=== PATIENT | female | born 1960 | race Caucasian/White ===

== ENCOUNTER 2019-03-19 05:43 | Outpatient (CLI) | payer BC ==
[~2019-03-19] VITALS: Ht 157.5 cm; Wt 54.4 kg
[2019-03-19] MEDS ORDERED: PREG50CA2 PO (16:00)
[2019-03-19] MEDS ORDERED: IBUP-2055 PO (16:00)
[2019-03-19] MEDS ORDERED: MULT-178 PO (16:00)
[2019-03-19] MEDS ORDERED: MELA10TA2 PO (16:00)
[2019-03-19] MEDS ORDERED: FLUO20CA42 PO (16:00)
[2019-03-19] MEDS ORDERED: IRON18TA PO (16:00)
[2019-03-19] MEDS ORDERED: METO-370 PO (16:00)
[2019-03-19] MEDS ORDERED: ASPI-586 PO (16:00)
[2019-03-19] MEDS ORDERED: CYAN500T2 PO (16:00)
== END 2019-03-19 16:17 | disposition home or self-care (01) ==
LOC: PREOP 05:43
PROVIDERS: ATTEND Surgery
DX: Z01.818 Encounter for other preprocedural examination (principal)

== ENCOUNTER 2019-03-27 11:21 | Day surgery (SDC) | payer BC ==
[~2019-03-27] VITALS: Ht 157.5 cm; Wt 54.4 kg
[~2019-03-27 11:21] MED LIST: ASPI-586 PO; CYAN500T2 PO; FLUO20CA42 PO; IBUP-2055 PO; IRON18TA PO; MELA10TA2 PO; METO-370 PO; MULT-178 PO; PREG50CA2 PO
--- OUTSIDE RECORDS SUMMARY | 2019-03-27 11:24 | XMS REPORT ---
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
--- OUTSIDE RECORDS SUMMARY | 2019-03-27 11:24 | XMS REPORT | Continuity of Care Document ---
Author Organization Unknown Address Unknown Allergies There is no data. Medications There is no data. Problems There is no data. Procedures There is no data. Results Test Result Range [facility] - 01/29/19 16:08 GLUCOSE 84 mg/dL 65-99 UREA NITROGEN (BUN) 23 mg/dL 7-25 CREATININE 1.18 mg/dL 0.50-1.05 eGFR NON-AFR. ROMANIAN 51 mL/min/1.73m2 > OR=60 eGFR 59 mL/min/1.73m2 > OR=60 BUN/CREATININE RATIO 19 (calc) 6-22 SODIUM 140 mmol/L 135-146 POTASSIUM 4.4 mmol/L 3.5-5.3 CHLORIDE 107 mmol/L 98-110 CARBON DIOXIDE 26 mmol/L 20-32 CALCIUM 9.9 mg/dL 8.6-10.4 PROTEIN, TOTAL 8.1 g/dL 6.1-8.1 ALBUMIN 4.5 g/dL 3.6-5.1 GLOBULIN 3.6 g/dL (calc) 1.9-3.7 ALBUMIN/GLOBULIN RATIO 1.3 (calc) 1.0-2.5 BILIRUBIN, TOTAL 0.4 mg/dL 0.2-1.2 ALKALINE PHOSPHATASE 150 U/L 33-130 AST 26 U/L 10-35 ALT 21 U/L 6-29 Encounters ACCT No. Visit Date/Time Discharge Status Pt. Type Provider Facility Loc./Unit Complaint [id number] 02/18/2019 09:15:00 02/18/2019 23:59:59 CLS Outpatient SELF, BRETT Garcia [facility] [id number] 01/29/2019 15:30:00 Document Registration
[2019-03-27] MEDS ORDERED: NS IV 500 ML 500 ML IV PRN (11:35)
--- NOTE | 2019-03-27 11:35 | Conscious Sedation/ASA ---
Conscious Sedation Pre-Proced Time 11:30 ASA Score 2 For ASA 3 and 4: Consider anesthesia and medical clearance. Also, for patients with a history of failed moderate sedation consider anesthesia. Airway Lungs Heart ASA score ASA 1: a normal healthy patient ASA 2: a patient with a mild systemic disease (mid diabetes, controlled hypertension, obesity ASA 3: a patient with a severe systemic disease that limits activity (angina, COPD, prior Myocardial infarction) ASA 4: a patient with an incapacitating disease that is a constant threat to life (CHF, renal failure) ASA 5: a moribund patient not expected to survive 24 hrs. (ruptured aneurysm) ASA 6: a declared brain- patient whose organs are being harvested. For emergent operations, add the letter E after the classification Mallampati Classification Grade 2 Sedation Plan Analgesia, Amnesia, Plan communicated to team members, Discussed options with patient/fam, Discussed risks with patient/fam The patient is an appropriate candidate to undergo the planned procedure, sedation, and anesthesia. The patient immediately re-assessed prior to indication. DAYANNA BALLESTEROS MD March 27, 2019 11:35
[2019-03-27] MEDS ORDERED: NS IV 500 ML 500 ML ONE (11:36)
[2019-03-27] MEDS ORDERED: fentaNYL INJECTION 100 MCG/2 ML AMP ONE ×2 (11:36→12:34)
[2019-03-27] MEDS ORDERED: MIDAZOLAM 2 MG/2 ML (VERSED) VIAL ONE ×6 (11:36→12:17)
--- NOTE | 2019-03-27 11:36 | Progress Note-Pre Operative ---
Pre-Operative Progress Note H&P Reviewed The H&P was reviewed, patient examined and no changes noted. Date Seen by Provider: March 27, 2019 Time Seen by Provider: 11: Date H&P Reviewed: March 27, 2019 Time H&P Reviewed: :30 Pre-Operative Diagnosis: hx colon polyp and family hx colon ca DAYANNA BALLESTEROS MD March 27, 2019 11:36
[2019-03-27] MEDS ORDERED: LIDOCAINE JELLY 2% 6 ML SYRINGE ONE (11:37)
--- NOTE | 2019-03-27 11:39 | Discharge Inst-Surgical ---
D/C Lap Instructions-LESLI Follow Up Activity as tolerated High Fiber Diet 25g or more per day Avoid Alcohol, Caffeine, Spicy [place] and Acid foods. Drink 64 fluid oz or more of fluids per day. Symptoms to Report: Fever over 101 degree F, Nausea/Vomiting If any problems/questions: Contact your physician or go to Emergency Room DAYANNA BALLESTEROS MD March 27, 2019 11:39
[2019-03-27] MEDS ORDERED: MIDAZOLAM 2 MG/2 ML (VERSED) VIAL IVP ONE (11:45)
[2019-03-27] MEDS ORDERED: morphine INJ 10 MG/ML 1ML (SYR OR VIAL) IV PRN (11:45)
[2019-03-27] MEDS ORDERED: LIDOCAINE JELLY 2% 6 ML SYRINGE MM PRN (11:45)
[2019-03-27] MEDS ORDERED: ONDANSETRON 4 MG/2 ML (SDV) Z0FRAN IV PRN (11:45)
[2019-03-27] MEDS ORDERED: HYDROcodone/APAP 5 MG/325 MG (LORTAB) TAB PO PRN (11:45)
[2019-03-27] MEDS ORDERED: ACETAMINOPHEN 325 MG TABLET PO PRN (11:45)
[2019-03-27] MEDS ORDERED: fentaNYL INJECTION 100 MCG/2 ML AMP IVP ONE (11:45)
[2019-03-27 12:00] VITALS: BP 167/94
[2019-03-27] MEDS ORDERED: TRAM100T34 PO (12:08)
--- NOTE | 2019-03-27 12:53 | Progress Note-Post Operative ---
Post-Operative Progess Note Surgeon (s)/Recruitment Internship (s) Surgeon DAYANNA BALLESTEROS MD Recruitment Internship: none Pre-Operative Diagnosis hx colon polyp and family hx colon ca Post-Operative Diagnosis chronic stage 2 ext and int hemorrhoids. Procedure & Operative Findings Date of Procedure 03/27/19 Procedure Performed/Findings Colonoscopy Anesthesia Type cs Estimated Blood Loss Estimated blood loss (mL): minimal Specimens/Packing Specimens Removed none DAYANNA BALLESTEROS MD March 27, 2019 12:53
[2019-03-27 13:10] VITALS: BP 116/56
[2019-03-27 13:35] VITALS: BP 109/67
[2019-03-27 14:00] VITALS: BP 109/67
--- NOTE | 2019-03-27 22:12 | OPERATIVE REPORT ---
DATE OF SERVICE: 03/27/2019 ATTENDING PRIMARY CARE PHYSICIAN: Jose Villeda MD PREOPERATIVE DIAGNOSIS: Family history of colon cancer, personal history of colon polyps. POSTOPERATIVE DIAGNOSIS: Chronic stage II external and internal hemorrhoids. It appears the ileocolonic anastomosis was normal. There were no polyps or any neoplasms identified throughout the colon or rectum. PROCEDURE: Colonoscopy. SURGEON: Dayanna Ballesteros MD ANESTHESIA: Conscious sedation. ESTIMATED BLOOD LOSS: Minimal. FINDINGS: Chronic stage II external and internal hemorrhoids, not actively edematous nor inflamed and no bleeding. Normal sphincter tone. What appeared to be the rectum and sigmoid colon were normal. There were no diverticulosis identified. The endoscope was then advanced to what appeared to be ileocolonic anastomosis, which appeared normal with no recurrent polyps or any neoplasms. The endoscope was then slowly withdrawn while taking a second look and suctioning residual air with no additional findings. DISPOSITION: The patient tolerated the procedure well. We will recommend continued medical management with high fiber diet with at least 25 to 30 grams of fiber per day as well as significant amounts of water daily to promote soft stools on a daily basis. No polyps were identified. However, she does have a first degree family history of colon cancer and we will recommend a followup colonoscopy in 5 years. 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
== END 2019-03-27 14:00 | disposition home or self-care (01) ==
LOC: ENDO 11:21
PROVIDERS: ATTEND Surgery
DX: Z12.11 Encounter for screening for malignant neoplasm of colon (principal); K64.1 Second degree hemorrhoids; Z87.19 Personal history of other diseases of the digestive system; Z80.0 Family history of malignant neoplasm of digestive organs; Z98.0 Intestinal bypass and anastomosis status; I10 Essential (primary) hypertension; F41.9 Anxiety disorder, unspecified; F32.9 Major depressive disorder, single episode, unspecified; M79.7 Fibromyalgia; Z86.711 Personal history of pulmonary embolism; Z86.718 Personal history of other venous thrombosis and embolism; Z87.891 Personal history of nicotine dependence; Z79.82 Long term (current) use of aspirin; Z79.899 Other long term (current) drug therapy

== ENCOUNTER 2019-04-29 16:23 | Inpatient (IN) | payer BC | END 2019-05-03 13:30 | disposition home or self-care (01) | LOC: ER FS 16:23 → 4TH 17:15 | DX: A41.9 Sepsis, unspecified organism (principal); R65.20 Severe sepsis without septic shock; N30.00 Acute cystitis without hematuria; N17.9 Acute kidney failure, unspecified; E87.1 Hypo-osmolality and hyponatremia; E86.1 Hypovolemia; R10.31 Right lower quadrant pain; K59.09 Other constipation; I10 Essential (primary) hypertension; G43.909 Migraine, unspecified, not intractable, without status migrainosus; F41.9 Anxiety disorder, unspecified; F32.9 Major depressive disorder, single episode, unspecified; M79.7 Fibromyalgia; D63.8 Anemia in other chronic diseases classified elsewhere; D69.6 Thrombocytopenia, unspecified; M25.512 Pain in left shoulder; M21.371 Foot drop, right foot; M54.9 Dorsalgia, unspecified; Z86.711 Personal history of pulmonary embolism; Z86.718 Personal history of other venous thrombosis and embolism; Z87.891 Personal history of nicotine dependence; Z90.49 Acquired absence of other specified parts of digestive tract; Z86.010 Personal history of colon polyps ==

== ENCOUNTER → 2019-11-26 | Outpatient (CLI) | payer BC ==
[~2019-11-26] MED LIST changes: +CIPR-225 PO; -CYAN500T2 PO; +CYAN500T62 PO; +FLUT9.9S NS; -IBUP-2055 PO; +IBUP-2473 PO; -METO-370 PO; +METO50TA7 PO; +NAPR220T66 PO; +TRAM100T34 PO; +TRM50T PO
== END ==
LOC: CARD 13:48
PROVIDERS: ATTEND Internal Medicine Cardiovascular Disease
DX: I73.9 Peripheral vascular disease, unspecified (principal); I10 Essential (primary) hypertension; E78.2 Mixed hyperlipidemia; I34.0 Nonrheumatic mitral (valve) insufficiency
CPT/HCPCS: 93306

== ENCOUNTER → 2020-01-19 | Outpatient (CLI) | payer BC | END | disposition home or self-care (01) | LOC: PREOP 05:40 | PROVIDERS: ATTEND Podiatrist Foot & Ankle Surgery | DX: Z01.818 Encounter for other preprocedural examination (principal) ==

== ENCOUNTER 2021-05-11 21:19 | Emergency (ER) | payer BC ==
[~2021-05-11] VITALS: Ht 157.5 cm; Wt 54.4 kg
[~2021-05-11 21:19] MED LIST changes: +ACHD5005 PO; +AMLO-250 PO; +ASPI-789 PO; +CLIN150C18 PO; -CYAN500T62 PO; +CYAN500T8 PO; +L.AC1CAP6 PO; +LOSA50TA63 PO
--- NOTE | 2021-05-11 21:21 | ED Abdominal Pain ---
General Stated Complaint: ABD PAIN History of Present Illness Date Seen by Provider: May 11, 2021 Time Seen by Provider: 21:21 Initial Comments 61-year-old female presents with diffuse abdominal pain. Patient reports that she has had some constipation for about 3 days. That tonight she had significant cramping abdominal pain that was diffuse. She was nauseated with dry heaves but did not vomit. She reports that she has not had a bowel movement for 3 days. She does not feel like she is passing much gas. She is not belchi ng. She has not vomited. She has no fever or chills. She reports that she has had problems with constipation since she was around 18. She denies any fever cough chills or urinary symptoms. Patient presented EMS. In route she received 4 Zofran and 25 of fentanyl. She reports her pain is significantly better. Allergies and Home Medications Allergies Coded Allergies: Penicillins (Verified Allergy, Mild, YEAST INFECTION, 03/11/20) doxycycline (Verified Allergy, Unknown, 03/11/20) levofloxacin (Verified Allergy, Unknown, 03/11/20) lovastatin (Verified Allergy, Unknown, 03/11/20) Home Medications Amlodipine Besylate 5 Mg Tablet, 5 MG PO DAILY, (Reported) Aspirin 81 Mg Tablet.dr, 81 MG PO DAILY, (Reported) Aspirin/Acetaminophen/Caffeine 1 Each Tablet, 2 EACH PO Q6-8HR PRN for Headache, (Reported) Clindamycin HCl 150 Mg Capsule, 150 MG PO Q6H Prescribed by: JAYDEN MERIDA on 03/14/20 1209 Fluoxetine HCl 20 Mg Capsule, 20 MG PO DAILY, (Reported) Fluticasone Propionate 9.9 Ml [place].susp, 2 SPRAY NS DAILY, (Reported) Hydrocodone/Acetaminophen 1 Each Tablet, 1 EACH PO Q6H Prescribed by: JAYDEN MERIDA on 03/14/20 1209 Iron 18 Mg Tablet, 27 MG PO Q48H, (Reported) L.acidoph & Paracasei,B.lactis 1 Each Capsule, 1 EACH PO DAILY, (Reported) Losartan Potassium 50 Mg Tablet, 50 MG PO DAILY, (Reported) Multivitamin 1 Each Tablet, 1 TAB PO BID, (Reported) Tramadol HCl 50 Mg Tablet, 100 MG PO Q6H PRN for PAIN-MODERATE, (Reported) Patient Home Medication List Home Medication List Reviewed: Yes Review of Systems Review of Systems Constitutional: No chills, No fever EENTM: No Symptoms Reported Respiratory: Denies Cough, Denies Shortness of Air Cardiovascular: Denies Chest Pain, Denies Lightheadedness Gastrointestinal: Abdominal Pain, Constipated; Denies Diarrhea; Nausea; Denies Rectal Bleeding, Denies Vomiting Genitourinary: No Symptoms Reported Skin: no symptoms reported Psychiatric/Neurological: No Symptoms Reported Endocrine: No Symptoms Reported Hematologic/Lymphatic: No Symptoms Reported Past Hklpcbk-Psrgqe-Czbuuf Hx Seasonal Allergies Seasonal Allergies: Yes Past Medical History Surgeries: Yes (BOWEL RESECTION, SEVERAL SX AFTER GB-SEPSIS, ) Appendectomy, Section, Gallbladder, Hysterectomy Respiratory: No (NOV 2017-SEPSIS/ TRACH ON VENT) Pulmonary Embolism Currently Using CPAP: No Currently Using BIPAP: No Cardiac: Yes Deep Vein Thrombosis, Hypertension, Palpitations Neurological: Yes Headaches /Migraines 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 Sexually Transmitted Disease: No HIV/AIDS: No Genitourinary: No Gastrointestinal: Yes Chronic Constipation, Chronic Diarrhea, Polyps Musculoskeletal: Yes (HX FOOT DROP, 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 9.0oz. 54.339364eu; 21.38 BMI Method:Stated General Appearance: no apparent distress Neck: full range of motion, supple Respiratory: lungs clear, normal breath sounds Cardiovascular: normal peripheral pulses, regular rate, rhythm Gastrointestinal: soft; No distended, No guarding, No rebound; tenderness (Mild diffuse) Extremities: normal range of motion, non-tender Back: no CVA tenderness Neurologic/Psychiatric: alert, normal mood/affect, oriented x 3 Skin: normal color, warm/dry Progress/Results/Core Measures Results/Orders Lab Results Laboratory Tests Test 7/8/21 21:50 Range/Units White Blood Count 9.6 4.3-11.0 10^3/uL Red Blood Count 2.74 L 4.35-5.85 10^6/uL Hemoglobin 8.6 L 11.5-16.0 G/DL Hematocrit 26 L 35-52 % Mean Corpuscular Volume 93 80-99 FL Mean Corpuscular Hemoglobin 31 25-34 PG Mean Corpuscular Hemoglobin Concent 34 32-36 G/DL Red Cell Distribution Width 13.4 10.0-14.5 % Platelet Count 210 130-400 10^3/uL Mean Platelet Volume 10.7 H 7.4-10.4 FL Immature Granulocyte % (Auto) 0 % Neutrophils (%) (Auto) 61 42-75 % Lymphocytes (%) (Auto) 29 12-44 % Monocytes (%) (Auto) 8 0-12 % Eosinophils (%) (Auto) 2 0-10 % Basophils (%) (Auto) 0 0-10 % Neutrophils # (Auto) 5.9 1.8-7.8 X 10^3 Lymphocytes # (Auto) 2.8 1.0-4.0 X 10^3 Monocytes # (Auto) 0.7 0.0-1.0 X 10^3 Eosinophils # (Auto) 0.2 0.0-0.3 10^3/uL Basophils # (Auto) 0.0 0.0-0.1 10^3/uL Immature Granulocyte # (Auto) 0.0 0.0-0.1 10^3/uL Sodium Level 139 135-145 MMOL/L Potassium Level 3.6 3.6-5.0 MMOL/L Chloride Level 105 98-107 MMOL/L Carbon Dioxide Level 23 21-32 MMOL/L Anion Gap 11 5-14 MMOL/L Blood Urea Nitrogen 30 H 7-18 MG/DL Creatinine 1.19 0.60-1.30 MG/DL Estimat Glomerular Filtration Rate 46 BUN/Creatinine Ratio 25 Glucose Level 103 70-105 MG/DL Calcium Level 9.5 8.5-10.1 MG/DL Corrected Calcium 9.3 8.5-10.1 MG/DL Total Bilirubin 0.2 0.1-1.0 MG/DL Aspartate Amino Transf (AST/SGOT) 53 H 5-34 U/L Alanine Aminotransferase (ALT/SGPT) 50 0-55 U/L Alkaline Phosphatase 127 40-136 U/L Total Protein 7.5 6.4-8.2 GM/DL Albumin 4.2 3.2-4.5 GM/DL My Orders Orders - EUFEMIA STEWARD DO Cbc With Automated Diff (05/11/21 21:24) Comprehensive Metabolic Panel (05/11/21 21:24) Lactic Acid Analyzer (05/11/21 21:24) Ua Culture If Indicated (05/11/21 21:24) Abdomen Flat & Upright/Decub (05/11/21 21:24) Lactated Ringers (Lr 1000 Ml Iv Solution (05/11/21 21:24) Vital Signs/I&O 05/11/21 21:24 Temp 36.1 Pulse 88 Resp 19 B/P (MAP) 125/88 (100) O2 Delivery Room Air Progress Progress Note : Progress Note Patient's x-ray, symptoms and physical exam consistent with constipation. Recommend patient try slzj-[id number] MiraLAX. She should take it 3-4 times daily until soft daily stool then as needed for soft daily stool. Patient stable and discharged home. Exam and x-ray did not show any concerns for small bowel obstruction or other etiology at this time. Diagnostic Imaging Diagonstic Imaging: Xray Plain Films/CT/US/NM/MRI: abdomen Comments Date of Exam:05/11/21 ABDOMEN FLAT & UPRIGHT/DECUB REASON FOR EXAM: Abdominal pain. Constipation. COMPARISON: None. TECHNIQUE: Frontal supine view of the abdomen. FINDINGS: The bowel gas pattern is nondistended. No large collection of free intraperitoneal air is seen. A moderate amount of gas and fecal material are present in the colon. No abnormal extraosseous calcification is present. The osseous structures are age-appropriate. IMPRESSION: Moderate amount of stool in the colon, likely representing constipation. No evidence of bowel obstruction or large collection of free intraperitoneal air. Reviewed: Reviewed by Me, Reviewed/Discussed Departure Impression Primary Impression: Constipation Qualified Codes: K59.00 - Constipation, unspecified Disposition: HOME, SELF-CARE Condition: Stable Departure-Patient Inst. Referrals: SELF,BRETT BUTLER (PCP) Primary Care Physician Patient Instructions: Constipation, Adult (DC) Add. Discharge Instructions: MiraLAX 1 capful 3-4 times daily until soft daily stool then as needed for daily soft stool. Drink plenty of fluids and stay well-hydrated Follow-up with your primary care provider as needed EUFEMIA STEWARD DO May 11, 2021 21:21
[2021-05-11] MEDS ORDERED: LACTATED RINGERS 1,000 ML IV STA (21:24)
--- NOTE | 2021-05-11 21:57 | Diagnostic Imaging Report ---
REASON FOR EXAM: Abdominal pain. Constipation. COMPARISON: None. TECHNIQUE: Frontal supine view of the abdomen. FINDINGS: The bowel gas pattern is nondistended. No large collection of free intraperitoneal air is seen. A moderate amount of gas and fecal material are present in the colon. No abnormal extraosseous calcification is present. The osseous structures are age-appropriate. IMPRESSION: Moderate amount of stool in the colon, likely representing constipation. No evidence of bowel obstruction or large collection of free intraperitoneal air. Dictated by: Dictated on workstation # [id number]
[2021-05-11 21:59] LABS: HEMATOCRIT 26 % (35-52); HEMOGLOBIN 8.6 G/DL (11.5-16.0); MEAN CORPUSCULAR HEMOGLOBIN 31 PG (25-34); MEAN CORPUSCULAR VOLUME 93 FL (80-99); WHITE BLOOD COUNT 9.6 10^3/uL (4.3-11.0)
[2021-05-11 22:00] LABS: BASOPHILS % (AUTO) 0 % (0-10); EOSINOPHILS # (AUTO) 0.2 10^3/uL (0.0-0.3); EOSINOPHILS % (AUTO) 2 % (0-10); LYMPHOCYTES # (AUTO) 2.8 X 10^3 (1.0-4.0); LYMPHOCYTES % (AUTO) 29 % (12-44); MEAN CORPUSCULAR HGB CONC 34 G/DL (32-36); MEAN PLATELET VOLUME 10.7 FL (7.4-10.4); MONOCYTES # (AUTO) 0.7 X 10^3 (0.0-1.0); MONOCYTES % (AUTO) 8 % (0-12); NEUTROPHILS # (AUTO) 5.9 X 10^3 (1.8-7.8); NEUTROPHILS % (AUTO) 61 % (42-75); PLATELET COUNT 210 10^3/uL (130-400)
[2021-05-11 22:17] LABS: ALBUMIN 4.2 GM/DL (3.2-4.5); BILIRUBIN,TOTAL 0.2 MG/DL (0.1-1.0); CALCIUM 9.5 MG/DL (8.5-10.1); CREATININE SERUM 1.19 MG/DL (0.60-1.30); POTASSIUM 3.6 MMOL/L (3.6-5.0); TOTAL PROTEIN 7.5 GM/DL (6.4-8.2)
[2021-05-11 22:55] VITALS: BP 127/69
== END 2021-05-11 22:55 | disposition home or self-care (01) ==
LOC: EDUNIT# 21:19 → ER FS 21:19
DX: K59.00 Constipation, unspecified (principal); I10 Essential (primary) hypertension; G89.29 Other chronic pain; M54.9 Dorsalgia, unspecified; Z79.82 Long term (current) use of aspirin; Z79.891 Long term (current) use of opiate analgesic; Z79.899 Other long term (current) drug therapy
CPT/HCPCS: 36415; 74019; 80053; 85025

== ENCOUNTER → 2021-08-30 | Outpatient (CLI) | payer BC ==
[~2021-08-30] MED LIST changes: -CLIN150C18 PO; +CLIN150C20 PO
--- NOTE | 2021-08-30 14:36 | Diagnostic Imaging Report ---
EXAMINATION: CT chest without contrast (lung screening). TECHNIQUE: Multiple contiguous axial images were obtained through the chest without the use of intravenous contrast according to lung cancer screening protocol. All CT scans use one or more of the following dose optimizing techniques: automated exposure control, MA and/or KvP adjustment based on patient size and exam type or iterative reconstruction. HISTORY: 60 pack year history of smoking. COMPARISON: Chest radiograph 05/02/2019, CT abdomen/pelvis 04/29/2019 FINDINGS: Thyroid: The thyroid is normal. Mediastinum: Heart size is normal without significant pericardial effusion. The aorta is normal in caliber. There are calcified mediastinal lymph nodes. No suspicious lymphadenopathy. Lungs and airways: The lungs are clear without consolidation, pleural effusion, or pneumothorax. There is a right lung calcified granuloma. There is scarring within the lingula and right middle lobe. No suspicious pulmonary lesion. The airways are normal. Upper abdomen: There is a 2.3 cm indeterminate right hepatic hypoattenuating lesion, increase in size from 2019. Additional hypoattenuating lesion within the left hepatic lobe measuring 6.1 cm, new from 2019. Musculoskeletal: No suspicious osseous lesion or compression fracture. IMPRESSION: 1. No suspicious pulmonary nodules. Recommend continued annual low-dose CT screening. 2. Multiple hypoattenuating lesions within liver which are either new or increased in size from prior exam. Recommend followup with MRI of the liver with Gadavist IV contrast. LUNG-RADS CATEGORY: 1 MODIFIER: C Dictated by: Dictated on workstation # [id number]
== END ==
LOC: RAD 14:15
PROVIDERS: ATTEND Family Medicine
DX: Z12.2 Encounter for screening for malignant neoplasm of respiratory organs (principal); K76.9 Liver disease, unspecified; F17.210 Nicotine dependence, cigarettes, uncomplicated
CPT/HCPCS: 71271

== ENCOUNTER → 2021-09-21 | Outpatient (CLI) | payer BC ==
[~2021-09-21] MED LIST changes: +GADOTERATE 0.5 MMOL/ML (CLARISCAN) 15 ML VIAL IV ONE
--- NOTE | 2021-09-21 16:15 | Diagnostic Imaging Report ---
EXAMINATION: MRI of the abdomen with and without contrast. TECHNIQUE: Multiplanar, multisequence MR images of the abdomen were obtained with and without intravenous contrast. HISTORY: Liver lesion evaluation COMPARISON: CT chest 08/30/2021, CT abdomen and pelvis 04/29/2019. FINDINGS: Liver: There is a 5.6 x 7.4 cm T1 hypointense, T2 hyperintense lesion within the left hepatic lobe which demonstrates central T2 hyperintensity with peripheral nodular enhancement. No lesion was seen in this location on 04/29/2019 CT. There is an additional 2.7 x 1.3 cm T2 hyperintense and T1 hypointense lesion within hepatic segment 8 which demonstrates thick nodular peripheral enhancement. A smaller hypoattenuating lesion was seen on the prior CT from 04/29/2019 at this location. Gallbladder and Bile Ducts: Gallbladder is surgically absent. No biliary ductal dilatation. Pancreas: The pancreas is normal in volume, signal intensity and enhancement. There is no dilation of the main pancreatic duct. Kidneys: There is no hydronephrosis. Adrenal glands: There is no adrenal gland nodule or thickening. Spleen: The spleen is normal in size without focal lesion. Lymph Nodes: There is no suspicious lymphadenopathy. Other: There is no ascites. IMPRESSION: 1. There are 2 suspicious peripheral enhancing lesions within the liver measuring up to 7.4 cm. Given their increased size or new appearance, particularly the larger lesion in the left lobe, findings are concerning for neoplastic process such as metastatic disease. Consider further evaluation with CT or ultrasound-guided biopsy. Dictated by: Dictated on workstation # [id number]
== END ==
LOC: RAD 14:45
PROVIDERS: ATTEND Family Medicine
DX: K76.89 Other specified diseases of liver (principal)
CPT/HCPCS: 74183

== ENCOUNTER → 2021-10-06 13:34 | Day surgery (SDC) | payer BC ==
[2020-03-14] VITALS (14 sets, daily range): BP systolic 98–144; BP diastolic 47–75
[2020-03-14] MEDS: LACTATED RINGERS 1,000 ML IV PRN ×2 (08:38→11:20)
--- OUTSIDE RECORDS SUMMARY | 2020-03-14 09:30 | XMS REPORT ---
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 27000 8002 Problem Hyperlipidemia E78.5 Active 72574 004 Problem Insomnia G47.00 Active 794121683 Problem Anxiety F41.9 Active 90396490 Problem Fibromyalgia M79.7 Active 2984867 05 Problem Peripheral arterial disease I73.9 Ac tive 545554511 Problem Esophageal reflux K21.9 Active 24 6406032 ALLERGIES No Information ENCOUNTERS Encounter Location Date Diagnosis [address] [place] [address] Jan, [address] [place] [address] Dec, [address] [place] [address] Nov, [address] [place] [address] Oct, [address] [place] [address] Sep, [address] [place] [address] Sep, [address] [place] [address] Aug, [address] [place] [address] Jul, [facility] [place] [facility] [address] [place] [address] Jun, [facility] [place] [address] [place] [address] Jun, Anemia due to other cause, n ot classified D64.89 [facility] [place] [address] [place] [address] Jun, Anemia due to other cause, n ot classified D64.89 [facility] [address] [place] [address] Jun, Left flank pain R10.9 [facility] [place] [address] [place] [address] Jun, Other chronic pain G89.29 ; Anemia due to other cause, not classified D64.89 ; Acute left flank pain R10.9 and Encounter for immunization Z23 [facility] [place] [address] [place] [address] Jun, [facility] [place] [address] [place] [address] Jun, History of sepsis Z86.19 [facility] [place] [address] [place] [address] May, [facility] [place] [facility] [address] [place] [address] May, HTN (hypertension), benign I 10 ; LFT elevation R94.5 ; History of UTI Z87.440 ; History of sepsis Z86.19 ; Iron deficiency anemia, unspecified iron deficiency anemia type D50.9 ; Other chronic pain G89.29 and Pain in left shoulder M25.512 [facility] [address] [place] [address] May, HTN (hypertension), benign I 10 [facility] [address] [id number] [place] [address] May, [facility] [address] [place] [address] May, [facility] [address] [place] [address] Apr, [facility] [address] [place] [address] Feb, [facility] [address] [place] [address] Feb, [facility] [address] [place] [address] Feb, Encounter for immunization Z 23 [facility] [address] [place] [address] Feb, Screening mammogram, encount er for Z12.31 [facility] [address] [place] [address] Feb, [facility] [address] [place] [address] Feb, [facility] [address] [place] [address] Feb, [facility] [address] [place] [address] Feb, [facility] [address] [place] [address] Feb, [facility] [address] [place] [address] Feb, [facility] [address] [place] [address] Jan, Screening mammogram, encount er for Z12.31 [facility] [address] [place] [address] Jan, Major depressive disorder wi th single episode, in partial remission F32.4 and HTN (hypertension), benign I10 IMMUNIZATIONS No Known Immunizations SOCIAL HISTORY Never Assessed REASON FOR VISIT PLAN OF CARE VITAL SIGNS MEDICATIONS Unknown Medications RESULTS No Results PROCEDURES No Known procedures INSTRUCTIONS MEDICATIONS ADMINISTERED No Known Medications MEDICAL (GENERAL) HISTORY Type Description Date Medical History Peripheral arterial disease Medical History Cecal neoplasm Medical History Esophageal reflux Medical History Hyperlipidemia Medical History Depression, major, recurrent, severe wit h psychosis Medical History IBS (irritable bowel syndrome) Medical History Fibromyalgia Medical History Insomnia Medical History Anxiety Surgical History bowel surgery Surgical History cholecystectomy Surgical History appendectomy Surgical History colectomy Surgical History section Surgical History partial hysterectomy Hospitalization History see surgeries Hospitalization History sepsis
--- OUTSIDE RECORDS SUMMARY | 2020-03-14 09:31 | XMS REPORT | Continuity of Care Document ---
Author Organization Unknown Address Unknown Phone Unavailable Allergies Active Description Code Type Severity Reaction Onset Reported/Identified Relationship to Patient Clinical Status Yes Penicillins [id number] Drug Aller gy Mild YEAST INFECTION 03/11/2020 Yes doxycycline [id number] Drug Aller gy Unknown N/A 03/11/2020 Yes levofloxacin [id number] Drug Allergy Unknown N/A 03/11/2020 Yes lovastatin [id number] Drug Allerg y Unknown N/A 03/11/2020 Medications There is no data. Problems Date Dx Coded Attending Type Code Diagnosis Diagnosed By 03/19/2019 DAYANNA BALLESTEROS MD, Ot Z01.81 8 ENCOUNTER FOR OTHER PREPROCEDURAL EXAMIN 03/20/2019 DAYANNA BALLESTEROS MD, Ot Z01.81 8 ENCOUNTER FOR OTHER PREPROCEDURAL EXAMIN 03/25/2019 DAYANNA BALLESTEROS MD, Ot Z01.81 8 ENCOUNTER FOR OTHER PREPROCEDURAL EXAMIN 03/27/2019 DAYANNA BALLESTEROS MD Ot F32.9 MAJOR DEPRESSIVE DISORDER, SINGLE EPISOD 03/27/2019 DAYANNA BALLESTEROS MD, Ot F41.9 ANXIETY DISORDER, UNSPECIFIED 03/27/2019 DAYANNA BALLESTEROS MD Ot I10 ESSENTIAL (PRIMARY) HYPERTENSION 03/27/2019 DAYANNA BALLESTEROS MD, Ot K64.1 SECOND DEGREE HEMORRHOIDS 03/27/2019 DAYANNA BALLESTEROS MD Ot M79.7 FIBROMYALGIA 03/27/2019 DAYANNA BALLESTEROS MD, Ot Z12.11 ENCOUNTER FOR SCREENING FOR MALIGNANT NE 03/27/2019 DAYANNA BALLESTEROS MD, Ot Z79.82 CORRECTIONAL COOK (CURRENT) USE OF ASPIRIN 03/27/2019 DAYANNA BALLESTEROS MD, Ot Z79.89 9 OTHER CORRECTIONAL COOK (CURRENT) DRUG THERAPY 03/27/2019 DAYANNA BALLESTEROS MD, Ot Z80.0 FAMILY HISTORY OF MALIGNANT NEOPLASM OF 03/27/2019 DAYANNA BALLESTEROS MD, Ot Z86.71 1 PERSONAL HISTORY OF PULMONARY EMBOLISM 03/27/2019 DAYANNA BALLESTEROS MD, Ot Z86.71 8 PERSONAL HISTORY OF OTHER VENOUS THROMBO 03/27/2019 DAYANNA BALLESTEROS MD Ot Z87.19 PERSONAL HISTORY OF OTHER DISEASES OF 03/27/2019 DAYANNA BALLESTEROS MD, Ot Z87.89 1 PERSONAL HISTORY OF NICOTINE DEPENDENCE 03/27/2019 DAYANNA BALLESTEROS MD Ot Z98.0 INTESTINAL BYPASS AND ANASTOMOSIS STATUS 04/01/2019 DAYANNA BALLESTEROS MD, Ot F32.9 MAJOR DEPRESSIVE DISORDER, SINGLE EPISOD 04/01/2019 DAYANNA BALLESTEROS MD Ot F41.9 ANXIETY DISORDER, UNSPECIFIED 04/01/2019 DAYANNA BALLESTEROS MD Ot I10 ESSENTIAL (PRIMARY) HYPERTENSION 04/01/2019 DAYANNA BALLESTEROS MD, Ot K64.1 SECOND DEGREE HEMORRHOIDS 04/01/2019 DAYANNA BALLESTEROS MD Ot M79.7 FIBROMYALGIA 04/01/2019 DAYANNA BALLESTEROS MD, Ot Z12.11 ENCOUNTER FOR SCREENING FOR MALIGNANT NE 04/01/2019 DAYANNA BALLESTEROS MD, Ot Z79.82 USP (CURRENT) USE OF ASPIRIN 04/01/2019 DAYANNA BALLESTEROS MD, Ot Z79.89 9 OTHER CORRECTIONAL COOK (CURRENT) DRUG THERAPY 04/01/2019 DAYANNA BALLESTEROS MD, Ot Z80.0 FAMILY HISTORY OF MALIGNANT NEOPLASM OF 04/01/2019 DAYANNA BALLESTEROS MD Ot Z86.71 1 PERSONAL HISTORY OF PULMONARY EMBOLISM 04/01/2019 DAYANNA BALLESTEROS MD, Ot Z86.71 8 PERSONAL HISTORY OF OTHER VENOUS THROMBO 04/01/2019 DAYANNA BALLESTEROS MD, Ot Z87.19 PERSONAL HISTORY OF OTHER DISEASES OF 04/01/2019 DAYANNA BALLESTEROS MD, Ot Z87.89 1 PERSONAL HISTORY OF NICOTINE DEPENDENCE 04/01/2019 DAYANNA BALLESTEROS MD, Ot Z98.0 INTESTINAL BYPASS AND ANASTOMOSIS STATUS 04/03/2019 DAYANNA BALLESTEROS MD, Ot F32.9 MAJOR DEPRESSIVE DISORDER, SINGLE EPISOD 04/03/2019 DAYANNA BALLESTEROS MD, Ot F41.9 ANXIETY DISORDER, UNSPECIFIED 04/03/2019 DAYANNA BALLESTEROS MD Ot I10 ESSENTIAL (PRIMARY) HYPERTENSION 04/03/2019 DAYANNA BALLESTEROS MD Ot K64.1 SECOND DEGREE HEMORRHOIDS 04/03/2019 DAYANNA BALLESTEROS MD, Ot M79.7 FIBROMYALGIA 04/03/2019 DAYANNA BALLESTEROS MD, Ot Z12.11 ENCOUNTER FOR SCREENING FOR MALIGNANT NE 04/03/2019 DAYANNA BALLESTEROS MD, Ot Z79.82 USP (CURRENT) USE OF ASPIRIN 04/03/2019 DAYANNA BALLESTEROS MD, Ot Z79.89 9 OTHER USP (CURRENT) DRUG THERAPY 04/03/2019 DAYANNA BALLESTEROS MD, Ot Z80.0 FAMILY HISTORY OF MALIGNANT NEOPLASM OF 04/03/2019 DAYANNA BALLESTEROS MD, Ot Z86.71 1 PERSONAL HISTORY OF PULMONARY EMBOLISM 04/03/2019 DAYANNA BALLESTEROS MD, Ot Z86.71 8 PERSONAL HISTORY OF OTHER VENOUS THROMBO 04/03/2019 DAYANNA BALLESTEROS MD, Ot Z87.19 PERSONAL HISTORY OF OTHER DISEASES OF TH 04/03/2019 DAYANNA BALLESTEROS MD, Ot Z87.89 1 PERSONAL HISTORY OF NICOTINE DEPENDENCE 04/03/2019 DAYANNA BALLESTEROS MD, Ot Z98.0 INTESTINAL BYPASS AND ANASTOMOSIS STATUS 05/03/2019 RADHA VIGIL MD, Ot A41.51 SEPSIS DUE TO ESCHERICHIA COLI [E. COLI] 05/03/2019 RADHA VIGIL MD, Ot A41 .9 SEPSIS, UNSPECIFIED ORGANISM 05/03/2019 RADHA VIGIL MD, Ot B96.20 UNSP ESCHERICHIA COLI THE CAUSE OF DI 05/03/2019 RADHA VIGIL MD, Ot D63 .8 ANEMIA IN OTHER CHRONIC DISEASES CLASSIF 05/03/2019 RADHA VIGIL MD, Ot D69.59 OTHER SECONDARY THROMBOCYTOPENIA 05/03/2019 RADHA VIGIL MD, Ot D69 .6 THROMBOCYTOPENIA, UNSPECIFIED 05/03/2019 RADHA VIGIL MD, Ot E86 .1 HYPOVOLEMIA 05/03/2019 RADHA VIGIL MD, Ot E87 .1 HYPO-OSMOLALITY AND HYPONATREMIA 05/03/2019 RADHA VIGIL MD, Ot F32 .9 MAJOR DEPRESSIVE DISORDER, SINGLE EPISOD 05/03/2019 RADHA VIGIL MD, Ot F41 .9 ANXIETY DISORDER, UNSPECIFIED 05/03/2019 RADHA VIGIL MD, Ot G43.909 MIGRAINE, UNSP, NOT INTRACTABLE, WITHOUT 05/03/2019 YARITZA MD, RADHA N Ot I10 ESSENTIAL (PRIMARY) HYPERTENSION 05/03/2019 RADHA VIGIL MD Ot I95 .9 HYPOTENSION, UNSPECIFIED 05/03/2019 RADHA VIGIL MD Ot J81 .0 ACUTE PULMONARY EDEMA 05/03/2019 RADHA VIGIL MD Ot K59.09 OTHER CONSTIPATION 05/03/2019 RADHA VIGIL MD Ot M21.371 FOOT DROP, RIGHT FOOT 05/03/2019 RADHA VIGIL MD Ot M25.512 PAIN IN LEFT SHOULDER 05/03/2019 RADHA VIGIL MD Ot M54 .9 DORSALGIA, UNSPECIFIED 05/03/2019 RADHA VIGIL MD Ot M79 .7 FIBROMYALGIA 05/03/2019 RADHA VIGIL MD Ot N17 .9 ACUTE KIDNEY FAILURE, UNSPECIFIED 05/03/2019 RADHA VIGIL MD Ot N30.00 ACUTE CYSTITIS WITHOUT HEMATURIA 05/03/2019 RADHA VIGIL MD Ot R10.31 RIGHT LOWER QUADRANT PAIN 05/03/2019 RADHA VIGIL MD Ot R65.20 SEVERE SEPSIS WITHOUT SEPTIC SHOCK 05/03/2019 RADHA VIGIL MD Ot R74 .8 ABNORMAL LEVELS OF OTHER SERUM ENZYMES 05/03/2019 RADHA VIGIL MD Ot Z86.010 PERSONAL HISTORY OF COLONIC POLYPS 05/03/2019 RADHA VIGIL MD Ot Z86.711 PERSONAL HISTORY OF PULMONARY EMBOLISM 05/03/2019 RADHA VIGIL MD Ot Z86.718 PERSONAL HISTORY OF OTHER VENOUS THROMBO 05/03/2019 RADHA VIGIL MD Ot Z87.891 PERSONAL HISTORY OF NICOTINE DEPENDENCE 05/03/2019 RADHA VIGIL MD Ot Z90.49 ACQUIRED ABSENCE OF OTHER SPECIFIED PART 11/30/2019 TRENA EDWARDS MD Ot E78. 2 MIXED HYPERLIPIDEMIA 11/30/2019 TRENA EDWARDS MD Ot I10 ESSENTIAL (PRIMARY) HYPERTENSION 11/30/2019 TRENA EDWARDS MD Ot I34. 0 NONRHEUMATIC MITRAL (VALVE) INSUFFICIENC 11/30/2019 TRENA EDWARDS MD Ot I73. 9 PERIPHERAL VASCULAR DISEASE, UNSPECIFIED 01/18/2020 TRENA EDWARDS MD Ot E78. 2 MIXED HYPERLIPIDEMIA 01/18/2020 TRENA EDWARDS MD, Ot I10 ESSENTIAL (PRIMARY) HYPERTENSION 01/18/2020 TRENA EDWARDS MD, Ot I34. 0 NONRHEUMATIC MITRAL (VALVE) INSUFFICIENC 01/18/2020 TRENA EDWARDS MD, Ot I73. 9 PERIPHERAL VASCULAR DISEASE, UNSPECIFIED 01/20/2020 MAGNOLIA DPM, JAYDEN Q Ot Z01.818 ENCOUNTER FOR OTHER PREPROCEDURAL EXAMIN Procedures There is no data. Results Test Result Range CMP - 01/29/19 16:08 GLUCOSE 84 mg/dL 65-99 UREA NITROGEN (BUN) 23 mg/dL 7-25 CREATININE 1.18 mg/dL 0.50-1.05 eGFR NON-AFR. ANGUILLAN 51 mL/min/1.73m2 > OR = 60 eGFR 59 mL/min/1.73m2 > OR = 60 BUN/CREATININE RATIO 19 (calc) 6-22 SODIUM 140 mmol/L 135-146 POTASSIUM 4.4 mmol/L 3.5-5.3 CHLORIDE 107 mmol/L 98-110 CARBON DIOXIDE 26 mmol/L 20-32 CALCIUM 9.9 mg/dL 8.6-10.4 PROTEIN, TOTAL 8.1 g/dL 6.1-8.1 ALBUMIN 4.5 g/dL 3.6-5.1 GLOBULIN 3.6 g/dL (calc) 1.9-3.7 ALBUMIN/GLOBULIN RATIO 1.3 (calc) 1.0-2. 5 BILIRUBIN, TOTAL 0.4 mg/dL 0.2-1.2 ALKALINE PHOSPHATASE 150 U/L 33-130 AST 26 U/L 10-35 ALT 21 U/L 6-29 Complete urinalysis with reflex to cultu re - 04/29/19 16:25 Urine color determination YELLOW NRG Urine clarity determination CLOUDY NR G Urine pH measurement by test strip 6.0 5-9 Specific gravity of urine by test strip 1.010 1.016-1.022 Urine protein assay by test strip, semi-quantitative 2+ NEGATIVE Urine glucose detection by automated test strip NE GATIVE NEGATIVE Erythrocytes detection in urine sediment by light micr oscopy 2+ NEGATIVE Urine ketones detection by automated test strip NE GATIVE NEGATIVE Urine nitrite detection by test strip NEGATIVE NEGATIVE Urine total bilirubin detection by test strip NEGA TIVE NEGATIVE Urine urobilinogen measurement by automated test strip (mass/volume) 0.2 mg/dL NORMAL Urine leukocyte esterase detection by dipstick 3+ NEGATIVE Automated urine sediment erythrocyte cou nt by microscopy (number/high power field) NONE NRG Automated urine sediment leukocyte count by microscopy (number/high power field) TNTC NRG Bacteria detection in urine sediment by light microsco py NONE NRG Crystals detection in urine sediment by light microsco py NONE NRG Casts detection in urine sediment by light microscopy NONE NRG Mucus detection in urine sediment by light microscopy NEGATIVE NRG Complete urinalysis with reflex to culture YES NRG Bacterial urine culture - 04/29/19 16:25 Bacterial urine culture [id number] NRG COLONY COUNT >100,000/ML NRG FTX;REPORTABLE SUSCEPTIBILITY REPORTED 05-02-19. NRG Dirithromycin susceptibility test by dis k diffusion - 04/29/19 16:25 Gentamicin susceptibility test by minimum inhibitory c oncentration <= NRG Trimethoprim/sulfamethoxazole susceptibi lity test by minimum inhibitoryconcentration <= NRG Levofloxacin susceptibility test by minimum inhibitory concentration <= NRG Ampicillin susceptibility test by minimum inhibitory c oncentration > NRG Cefazolin susceptibility test by minimum inhibitory co ncentration 2 NRG Ceftriaxone susceptibility test by minimum inhibitory concentration <= NRG Ciprofloxacin susceptibility test by minimum inhibitor y concentration <= NRG Meropenem susceptibility test by minimum inhibitory co ncentration <= NRG Nitrofurantoin susceptibility test by mi nimum inhibitory concentration <= NRG Amoxicillin and clavulanate potassium susc ENIO = NRG Complete blood count (CBC) with automate d white blood cell (WBC) differential - 04/29/19 16:35 Blood leukocytes automated count (number/volume) 25.5 10*3/uL 4.3-11.0 Blood erythrocytes automated count (number/volume) 3.05 10*6/uL 4.35-5.85 Venous blood hemoglobin measurement (mass/volume) 9.4 g/dL 11.5-16.0 Blood hematocrit (volume fraction) 28 % 35-52 Automated erythrocyte mean corpuscular volume 91 [ foz_us] 80-99 Automated erythrocyte mean corpuscular h emoglobin (mass per erythrocyte) 31 pg 25-34 Automated erythrocyte mean corpuscular h emoglobin concentration measurement (mass/volume) 34 g/dL 32-36 Automated erythrocyte distribution width ratio 13. 2 % 10.0- 14.5 Automated blood platelet count (count/volume) 207 10*3/uL 130-400 Automated blood platelet mean volume measurement 11.2 [foz_us] 7.4-10.4 Automated blood neutrophils/100 leukocytes 89 % 42-75 Automated blood lymphocytes/100 leukocytes 4 % 12-44 Blood monocytes/100 leukocytes 6 % 0-12 Automated blood eosinophils/100 leukocytes 0 % 0-10 Automated blood basophils/100 leukocytes 0 % 0-10 Blood neutrophils automated count (number/volume) 22.6 10*3 1.8-7.8 Blood lymphocytes automated count (number/volume) 1.1 10*3 1.0-4.0 Blood monocytes automated count (number/volume) 1. 5 10*3 0.0-1.0 Automated eosinophil count 0.0 10*3/uL 0 .0-0.3 Automated blood basophil count (count/volume) 0.1 10*3/uL 0.0-0.1 Blood lactic acid measurement (moles/vol ume) - 04/29/19 16:35 Blood lactic acid measurement (moles/volume) 1.88 mmol/L 0.50-2.00 PT panel in platelet poor plasma by coag ulation assay - 04/29/19 16:35 Prothrombin time (PT) in platelet poor plasma by coagu lation assay 14.5 s 12.2-14.7 INR in platelet poor plasma or blood by coagulation as say 1.1 0.8-1.4 Activated partial thromboplastin time (a PTT) in platelet poor plasma bycoagulation assay - 04/29/19 16:35 Activated partial thromboplastin time (a PTT) in platelet poor plasma bycoagulation assay 29 s 24-35 Manual absolute plasma cell count - 04/05 04/22 16:35 Blood monocytes/100 leukocytes 4 % NRG Manual blood segmented neutrophils/100 leukocytes 82 % NRG Blood band neutrophils/100 leukocytes 12 % NRG Manual blood lymphocytes/100 leukocytes 2 % NRG Manual eosinophils/100 leukocytes in nose 0 % NRG Manual blood basophils/100 leukocytes 0 % NRG Blood erythrocyte morphology finding identification NORMAL NRG Comprehensive metabolic panel - 04/29/19 16:35 Serum or plasma sodium measurement (moles/volume) 129 mmol/L 135-145 Serum or plasma potassium measurement (moles/volume) 4.3 mmol/L 3.6-5.0 Serum or plasma chloride measurement (moles/volume) 89 mmol/L 98-107 Carbon dioxide 22 mmol/L 21-32 Serum or plasma anion gap determination (moles/volume) 18 mmol/L 5-14 Serum or plasma urea nitrogen measurement (mass/volume ) 44 mg/dL 7-18 Serum or plasma creatinine measurement (mass/volume) 2.04 mg/dL 0.60-1.30 Serum or plasma urea nitrogen/creatinine mass ratio 22 NRG Serum or plasma creatinine measurement w ith calculation of estimated glomerular filtration rate 25 NRG Serum or plasma glucose measurement (mass/volume) 128 mg/dL 70-105 Serum or plasma calcium measurement (mass/volume) 9.4 mg/dL 8.5-10.1 Serum or plasma total bilirubin measurement (mass/volu me) 0.6 mg/dL 0.1-1.0 Serum or plasma alkaline phosphatase archana surement (enzymatic activity/volume) 178 U/L 40-136 Serum or plasma aspartate aminotransfera se measurement (enzymatic activity/volume) 82 U/L 5-34 Serum or plasma alanine aminotransferase measurement (enzymatic activity/volume) 70 U/L 0-55 Serum or plasma protein measurement (mass/volume) 8.4 g/dL 6.4-8.2 Serum or plasma albumin measurement (mass/volume) 3.7 g/dL 3.2-4.5 CALCIUM CORRECTED 9.6 mg/dL 8.5-10.1 Magnesium - 04/29/19 16:35 Magnesium 2.0 mg/dL 1.8-2.4 TROPONIN T - 04/29/19 16:35 TROPONIN T 20 % <=10 PROBNP FS - 04/29/19 16:35 PROBNP FS 963.1 pg/mL <75.0 Lipase - 04/29/19 16:35 Lipase 48 U/L 8-78 Bacterial blood culture - 04/29/19 16:35 Bacterial blood culture NG NRG Bacterial blood culture - 04/29/19 18:31 Bacterial blood culture NG NRG Complete blood count (CBC) with automate d white blood cell (WBC) differential - 04/30/19 03:45 Blood leukocytes automated count (number/volume) 18.8 10*3/uL 4.3-11.0 Blood erythrocytes automated count (number/volume) 2.82 10*6/uL 4.35-5.85 Venous blood hemoglobin measurement (mass/volume) 8.8 g/dL 11.5-16.0 Blood hematocrit (volume fraction) 26 % 35-52 Automated erythrocyte mean corpuscular volume 93 [ foz_us] 80-99 Automated erythrocyte mean corpuscular h emoglobin (mass per erythrocyte) 31 pg 25-34 Automated erythrocyte mean corpuscular h emoglobin concentration measurement (mass/volume) 34 g/dL 32-36 Automated erythrocyte distribution width ratio 13. 2 % 10.0- 14.5 Automated blood platelet count (count/volume) 50 1 0*3/uL 130-400 Automated blood platelet mean volume measurement 10.8 [foz_us] 7.4-10.4 Automated blood neutrophils/100 leukocytes 85 % 42-75 Automated blood lymphocytes/100 leukocytes 9 % 12-44 Blood monocytes/100 leukocytes 6 % 0-12 Automated blood eosinophils/100 leukocytes 0 % 0-10 Automated blood basophils/100 leukocytes 0 % 0-10 Blood neutrophils automated count (number/volume) 16.0 10*3 1.8-7.8 Blood lymphocytes automated count (number/volume) 1.7 10*3 1.0-4.0 Blood monocytes automated count (number/volume) 1. 0 10*3 0.0-1.0 Automated eosinophil count 0.1 10*3/uL 0 .0-0.3 Automated blood basophil count (count/volume) 0.0 10*3/uL 0.0-0.1 Comprehensive metabolic panel - 04/30/19 03:45 Serum or plasma sodium measurement (moles/volume) 133 mmol/L 135-145 Serum or plasma potassium measurement (moles/volume) 4.9 mmol/L 3.6-5.0 Serum or plasma chloride measurement (moles/volume) 107 mmol/L 98-107 Carbon dioxide 17 mmol/L 21-32 Serum or plasma anion gap determination (moles/volume) 9 mmol/L 5-14 Serum or plasma urea nitrogen measurement (mass/volume ) 39 mg/dL 7-18 Serum or plasma creatinine measurement (mass/volume) 1.74 mg/dL 0.60-1.30 Serum or plasma urea nitrogen/creatinine mass ratio 22 NRG Serum or plasma creatinine measurement w ith calculation of estimated glomerular filtration rate 30 NRG Serum or plasma glucose measurement (mass/volume) 93 mg/dL 70-105 Serum or plasma calcium measurement (mass/volume) 8.8 mg/dL 8.5-10.1 Serum or plasma total bilirubin measurement (mass/volu me) 0.4 mg/dL 0.1-1.0 Serum or plasma alkaline phosphatase archana surement (enzymatic activity/volume) 167 U/L 40-136 Serum or plasma aspartate aminotransfera se measurement (enzymatic activity/volume) 135 U/L 5-34 Serum or plasma alanine aminotransferase measurement (enzymatic activity/volume) 114 U/L 0-55 Serum or plasma protein measurement (mass/volume) 6.6 g/dL 6.4-8.2 Serum or plasma albumin measurement (mass/volume) 3.1 g/dL 3.2-4.5 CALCIUM CORRECTED 9.5 mg/dL 8.5-10.1 Acute hepatitis panel - 04/30/19 16:08 Confirmatory quantitative serum or plasm a hepatitis B virus surface antigen measurement Non-Reactive Non-Reactive Hepatitis A virus IgM antibody assay Non-Reactive Non- Reactive Hepatitis B virus core IgM antibody assay Non-Reac tive Non- Reactive Serum hepatitis C virus antibody detection Non-[place] ctive Non-Reactive Complete blood count (CBC) with automate d white blood cell (WBC) differential - 05/01/19 09:37 Blood leukocytes automated count (number/volume) 12.6 10*3/uL 4.3-11.0 Blood erythrocytes automated count (number/volume) 2.68 10*6/uL 4.35-5.85 Venous blood hemoglobin measurement (mass/volume) 8.1 g/dL 11.5-16.0 Blood hematocrit (volume fraction) 24 % 35-52 Automated erythrocyte mean corpuscular volume 91 [ foz_us] 80-99 Automated erythrocyte mean corpuscular h emoglobin (mass per erythrocyte) 30 pg 25-34 Automated erythrocyte mean corpuscular h emoglobin concentration measurement (mass/volume) 33 g/dL 32-36 Automated erythrocyte distribution width ratio 13. 9 % 10.0- 14.5 Automated blood platelet count (count/volume) 227 10*3/uL 130-400 Automated blood platelet mean volume measurement 10.8 [foz_us] 7.4-10.4 Automated blood neutrophils/100 leukocytes 83 % 42-75 Automated blood lymphocytes/100 leukocytes 10 % 12-44 Blood monocytes/100 leukocytes 6 % 0-12 Automated blood eosinophils/100 leukocytes 1 % 0-10 Automated blood basophils/100 leukocytes 0 % 0-10 Blood neutrophils automated count (number/volume) 10.5 10*3 1.8-7.8 Blood lymphocytes automated count (number/volume) 1.3 10*3 1.0-4.0 Blood monocytes automated count (number/volume) 0. 8 10*3 0.0-1.0 Automated eosinophil count 0.1 10*3/uL 0 .0-0.3 Automated blood basophil count (count/volume) 0.0 10*3/uL 0.0-0.1 Comprehensive metabolic panel - 05/01/19 09:37 Serum or plasma sodium measurement (moles/volume) 135 mmol/L 135-145 Serum or plasma potassium measurement (moles/volume) 3.0 mmol/L 3.6-5.0 Serum or plasma chloride measurement (moles/volume) 108 mmol/L 98-107 Carbon dioxide 17 mmol/L 21-32 Serum or plasma anion gap determination (moles/volume) 10 mmol/L 5-14 Serum or plasma urea nitrogen measurement (mass/volume ) 20 mg/dL 7-18 Serum or plasma creatinine measurement (mass/volume) 1.39 mg/dL 0.60-1.30 Serum or plasma urea nitrogen/creatinine mass ratio 14 NRG Serum or plasma creatinine measurement w ith calculation of estimated glomerular filtration rate 39 NRG Serum or plasma glucose measurement (mass/volume) 102 mg/dL 70-105 Serum or plasma calcium measurement (mass/volume) 9.1 mg/dL 8.5-10.1 Serum or plasma total bilirubin measurement (mass/volu me) 0.5 mg/dL 0.1-1.0 Serum or plasma alkaline phosphatase archana surement (enzymatic activity/volume) 205 U/L 40-136 Serum or plasma aspartate aminotransfera se measurement (enzymatic activity/volume) 81 U/L 5-34 Serum or plasma alanine aminotransferase measurement (enzymatic activity/volume) 106 U/L 0-55 Serum or plasma protein measurement (mass/volume) 7.1 g/dL 6.4-8.2 Serum or plasma albumin measurement (mass/volume) 3.2 g/dL 3.2-4.5 CALCIUM CORRECTED 9.7 mg/dL 8.5-10.1 Complete blood count (CBC) with automate d white blood cell (WBC) differential - 05/02/19 04:15 Blood leukocytes automated count (number/volume) 12.6 10*3/uL 4.3-11.0 Blood erythrocytes automated count (number/volume) 2.50 10*6/uL 4.35-5.85 Venous blood hemoglobin measurement (mass/volume) 7.5 g/dL 11.5-16.0 Blood hematocrit (volume fraction) 23 % 35-52 Automated erythrocyte mean corpuscular volume 90 [ foz_us] 80-99 Automated erythrocyte mean corpuscular h emoglobin (mass per erythrocyte) 30 pg 25-34 Automated erythrocyte mean corpuscular h emoglobin concentration measurement (mass/volume) 33 g/dL 32-36 Automated erythrocyte distribution width ratio 13. 7 % 10.0- 14.5 Automated blood platelet count (count/volume) 232 10*3/uL 130-400 Automated blood platelet mean volume measurement 11.1 [foz_us] 7.4-10.4 Automated blood neutrophils/100 leukocytes 72 % 42-75 Automated blood lymphocytes/100 leukocytes 17 % 12-44 Blood monocytes/100 leukocytes 11 % 0-12 Automated blood eosinophils/100 leukocytes 1 % 0-10 Automated blood basophils/100 leukocytes 0 % 0-10 Blood neutrophils automated count (number/volume) 9.1 10*3 1.8-7.8 Blood lymphocytes automated count (number/volume) 2.1 10*3 1.0-4.0 Blood monocytes automated count (number/volume) 1. 4 10*3 0.0-1.0 Automated eosinophil count 0.1 10*3/uL 0 .0-0.3 Automated blood basophil count (count/volume) 0.0 10*3/uL 0.0-0.1 Comprehensive metabolic panel - 05/02/19 04:35 Serum or plasma sodium measurement (moles/volume) 136 mmol/L 135-145 Serum or plasma potassium measurement (moles/volume) 4.5 mmol/L 3.6-5.0 Serum or plasma chloride measurement (moles/volume) 108 mmol/L 98-107 Carbon dioxide 20 mmol/L 21-32 Serum or plasma anion gap determination (moles/volume) 8 mmol/L 5-14 Serum or plasma urea nitrogen measurement (mass/volume ) 13 mg/dL 7-18 Serum or plasma creatinine measurement (mass/volume) 1.23 mg/dL 0.60-1.30 Serum or plasma urea nitrogen/creatinine mass ratio 11 NRG Serum or plasma creatinine measurement w ith calculation of estimated glomerular filtration rate 45 NRG Serum or plasma glucose measurement (mass/volume) 98 mg/dL 70-105 Serum or plasma calcium measurement (mass/volume) 9.1 mg/dL 8.5-10.1 Serum or plasma total bilirubin measurement (mass/volu me) 0.4 mg/dL 0.1-1.0 Serum or plasma alkaline phosphatase archana surement (enzymatic activity/volume) 184 U/L 40-136 Serum or plasma aspartate aminotransfera se measurement (enzymatic activity/volume) 62 U/L 5-34 Serum or plasma alanine aminotransferase measurement (enzymatic activity/volume) 93 U/L 0-55 Serum or plasma protein measurement (mass/volume) 6.5 g/dL 6.4-8.2 Serum or plasma albumin measurement (mass/volume) 2.9 g/dL 3.2-4.5 CALCIUM CORRECTED 10.0 mg/dL 8.5-10.1 Automated blood complete blood count (he mogram) panel - 05/03/19 04:50 Blood leukocytes automated count (number/volume) 9.2 10*3/uL 4.3-11.0 Blood erythrocytes automated count (number/volume) 2.91 10*6/uL 4.35-5.85 Venous blood hemoglobin measurement (mass/volume) 8.9 g/dL 11.5-16.0 Blood hematocrit (volume fraction) 27 % 35-52 Automated erythrocyte mean corpuscular volume 92 [ foz_us] 80-99 Automated erythrocyte mean corpuscular h emoglobin (mass per erythrocyte) 31 pg 25-34 Automated erythrocyte mean corpuscular h emoglobin concentration measurement (mass/volume) 33 g/dL 32-36 Automated erythrocyte distribution width ratio 14. 5 % 10.0- 14.5 Automated blood platelet count (count/volume) 240 10*3/uL 130-400 Automated blood platelet mean volume measurement 10.3 [foz_us] 7.4-10.4 Comprehensive metabolic panel - 05/03/19 04:50 Serum or plasma sodium measurement (moles/volume) 135 mmol/L 135-145 Serum or plasma potassium measurement (moles/volume) 3.4 mmol/L 3.6-5.0 Serum or plasma chloride measurement (moles/volume) 103 mmol/L 98-107 Carbon dioxide 19 mmol/L 21-32 Serum or plasma anion gap determination (moles/volume) 13 mmol/L 5-14 Serum or plasma urea nitrogen measurement (mass/volume ) 11 mg/dL 7-18 Serum or plasma creatinine measurement (mass/volume) 1.20 mg/dL 0.60-1.30 Serum or plasma urea nitrogen/creatinine mass ratio 9 NRG Serum or plasma creatinine measurement w ith calculation of estimated glomerular filtration rate 46 NRG Serum or plasma glucose measurement (mass/volume) 73 mg/dL 70-105 Serum or plasma calcium measurement (mass/volume) 9.5 mg/dL 8.5-10.1 Serum or plasma total bilirubin measurement (mass/volu me) 0.4 mg/dL 0.1-1.0 Serum or plasma alkaline phosphatase archana surement (enzymatic activity/volume) 184 U/L 40-136 Serum or plasma aspartate aminotransfera se measurement (enzymatic activity/volume) 45 U/L 5-34 Serum or plasma alanine aminotransferase measurement (enzymatic activity/volume) 83 U/L 0-55 Serum or plasma protein measurement (mass/volume) 7.6 g/dL 6.4-8.2 Serum or plasma albumin measurement (mass/volume) 3.2 g/dL 3.2-4.5 CALCIUM CORRECTED 10.1 mg/dL 8.5-10.1 LIVER PANEL (LFT) - 05/08/19 08:10 PROTEIN, TOTAL 8.1 g/dL 6.1-8.1 ALBUMIN 3.6 g/dL 3.6-5.1 GLOBULIN 4.5 g/dL (calc) 1.9-3.7 ALBUMIN/GLOBULIN RATIO 0.8 (calc) 1.0-2. 5 BILIRUBIN, TOTAL 0.4 mg/dL 0.2-1.2 ALKALINE PHOSPHATASE 140 U/L 33-130 AST 32 U/L 10-35 ALT 40 U/L 6-29 BILIRUBIN, DIRECT 0.1 mg/dL < OR = 0.2 BILIRUBIN, INDIRECT 0.3 mg/dL (calc) 0.2 -1.2 PDM - 09 PANEL (PROFILE 1) - 06/11/19 15 :34 Prescribed Drug 1 Hydrocodone NRG Creatinine 94.3 mg/dL > or = 20.0 pH 6.73 4.5 - 9.0 Oxidant NEGATIVE mcg/mL <200 Amphetamines NEGATIVE ng/mL <500 medMATCH Amphetamines CONSISTENT NRG Benzodiazepines NEGATIVE ng/mL <100 medMATCH Benzodiazepines CONSISTENT NRG Marijuana Metabolite NEGATIVE ng/mL <20 medMATCH Marijuana Metab CONSISTENT NRG Cocaine Metabolite NEGATIVE ng/mL <150 medMATCH Cocaine Metab CONSISTENT NRG Opiates NEGATIVE ng/mL <100 medMATCH Opiates INCONSISTENT NRG Oxycodone NEGATIVE ng/mL <100 medMATCH Oxycodone CONSISTENT NRG COMMENT NRG Barbiturates NEGATIVE ng/mL <300 medMATCH Barbiturates CONSISTENT NRG Methadone Metabolite NEGATIVE ng/mL <100 medMATCH Methadone Metab CONSISTENT NRG Phencyclidine NEGATIVE ng/mL <25 medMATCH Phencyclidine CONSISTENT NRG Coronavirus SARS-CoV-2 SO 2018 - 0 13:39 Coronavirus Ab [Units/volume] in Serum Negative Negative Encounters ACCT No. Visit Date/Time Discharge Status Pt. Type Provider Facility Loc./Unit Complaint [id number] 03/09/2020 14:30:00 03/09/2020 23:59: 59 CLS Outpatient SELF, BRETT Valdes [facility] [id number] 06/11/2019 15:00:00 Document Registration [id number] 05/08/2019 08:00:00 Document Registration [id number] 01/29/2019 15:30:00 Document Registration [id number] 03/11/2020 05:35:00 12:25:00 DIS Outpatient MAGNOLIA DPM, JAYDEN Q Via [facility] PREOP CAPSULITIS [id number] 01/25/2020 08:00:00 23:59:59 CLS Preadmit MAGNOLIA DPM, JAYDEN Q Via [facility] [place] RIGHT FOOT [id number] 01/19/2020 05:40:00 23:59:59 CLS Outpatient MAGNOLIA DPM, JAYDEN Q Via [facility] PREOP HAMMERTOE [id number] 11/26/2019 13:48:00 020 23:59:59 CLS Outpatient JERRY BUTLER, TRENA Garcia Via [facility] CARD PAD,HTN,SOB,MIXED HYPER LIPIDEMIA [id number] 04/29/2019 17:15:00 019 13:30:00 DIS Inpatient YARITZA BUTLER, RADHA Brown Via [facility] 4TH SEPSIS [id number] 03/27/2019 11:21:00 14:00:00 DIS Outpatient DAYANNA BALLESTEROS MD Via [facility] ENDO HX OF POLYPS/FAMILY HX COLON CANCER [id number] 03/19/2019 05:43:00 16:17:00 DIS Outpatient DAYANNA BALLESTEROS MD Via [facility] PREOP COLONOSCOPY [id number] 03/14/2020 09:30:00 P EN Preadmit MAGNOLIA DPM, JAYDEN Q Via [facility] SDC CAPSULITIS
--- NOTE | 2020-03-14 09:45 | Progress Note-Pre Operative ---
Pre-Operative Progress Note H&P Reviewed The H&P was reviewed, patient examined and no changes noted. Date Seen by Provider: March 14, 2020 Time Seen by Provider: :44 Date H&P Reviewed: March 14, 2020 Time H&P Reviewed: :44 Pre-Operative Diagnosis: Hypertrophic 2nd metatarsal, Subluxed 2nd MTPJ, 2nd Hammertoe, right MAGNOLIA,JAYDEN Q DPM March 14, 2020 09:45
--- NOTE | 2020-03-14 12:01 | Anesthesia-General Post-Op ---
General Patient Condition Mental Status/LOC: Same as Preop Cardiovascular: Satisfactory Nausea/Vomiting: Absent Respiratory: Satisfactory Pain: Controlled Complications: Absent Post Op Complications Complications None Follow Up Care/Instructions Patient Instructions None needed. Anesthesia/Patient Condition Patient Condition Patient is doing well, no complaints, stable vital signs, no apparent adverse anesthesia problems. No complications reported per nursing. CAMERON HERNANDEZ CRNA March 14, 2020 12:01
--- NOTE | 2020-03-14 12:02 | Progress Note-Post Operative ---
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
--- NOTE | 2020-03-14 12:40 | Diagnostic Imaging Report ---
INDICATION: Fluoroscopy for right foot surgery. Fluoroscopy was provided in the OR during right foot surgery. 6 seconds of fluoroscopic time was utilized. A single image of the right forefoot was obtained. There are postsurgical changes at the 2nd MTP joint. IMPRESSION: Fluoroscopy for right foot surgery. Dictated by: Dictated on workstation # [id number]
--- NOTE | 2020-03-14 12:57 | Diagnostic Imaging Report ---
HISTORY: Postoperative 2nd metatarsal osteotomy and hammertoe correction. COMPARISON: None TECHNIQUE: 2 views of the right foot FINDINGS: Postsurgical changes are seen at the right 2nd toe with screws placed at the proximal phalanx and distal metatarsal. There is advanced degenerative change at the 2nd MTP joint. 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 No cortical erosions are seen. IMPRESSION:. Postsurgical changes in the right 2nd toe with normal alignment. No hardware loosening is seen. There is degenerative change at the 2nd MTP joint. Dictated by: Dictated on workstation # [id number]
--- NOTE | 2020-03-14 14:31 | Physical Therapy Ortho Eval ---
PT Orthopedic Evaluation Type of Surgery Hypertrophic 2nd metatarsal, Subluxed 2nd MTPJ, 2nd Hammertoe, right Prior Level of Function Current Living Status: Spouse Locomotion (Upon Admit): Independent Established Durable Medical Eq: Front Wheeled Walker Subjective Subjective Agrees to PT. Reports she has used a walker before. Reports she has a walker at home. Pt reports that Dr. Sanches told her she could weight bear through her heel, but not through her toes. Entry Into Home: Stairs With Railing Steps Into Home: 2 Motor Control Motor Control: Motor Control WNL ROM ROM: WFL Strength Strength: WFL Transfer Transfers (B, C, W/C) (FIM): 4 (post treatment, pt is supervision with transfers. ) Gait Gait Assistive Device: FWW Right Lower Extremity: Right Weight Bearing Status RLE: Non Weight Bearing Left Lower Extremity: Left Weight Bearing Status LLE: Full Weight Bearing Orders received noted NWB right LE; pt reported that Dr. Sanches informed her she could WB through the heel. Leanna Davis RN phoned Dr. Sanches and he confirmed that the patient could WB through the heel, keeping her toes off the floor. Pt educated on this and was able to correctly demonstrate. Gait (FIM): 4 (SB to supervision post treatment) Summary/Comments Pt walks slowly on her heel right with SBA; pt relies heavily on the walker for balance. Slightly unsteady but reports her will be around to assist as needed. Treatment Rendered Treatment: Gait Train, Step Train Assessment/Goals Goal Time Frame: 1 Visit Safe Ambulation: Yes Plan Treatment Plan: Discharge Time Time In: 1350 Time Out: 1415 Total Billed Treatment Time: 25 Billed Treatment Time visit EVL 25 FRITZ CAR PT March 14, 2020 14:31
--- NOTE | 2020-03-14 21:45 | OPERATIVE REPORT ---
DATE OF SERVICE: 03/14/2020 SURGEON: Sherrill Sanches DPM PREOPERATIVE DIAGNOSES: 1. Hypertrophic second metatarsal, right foot. 2. Hammer digit syndrome, right second toe. 3. Subluxed right second metatarsophalangeal joint. POSTOPERATIVE DIAGNOSES: 1. Hypertrophic second metatarsal, right foot. 2. Hammer digit syndrome, right second toe. 3. Subluxed right second metatarsophalangeal joint. 4. Degenerative joint disease, right second metatarsophalangeal joint. PROCEDURES: 1. Reduction of hammertoe, right with [place] 28 TenoTac system. 2. Second metatarsal osteotomy, right foot. WOUND CLASS: Clean. ANESTHESIA: General. HEMOSTASIS: Pneumatic thigh tourniquet at 250 mmHg. INDICATIONS: This 59-year-old female presents complaining of chronic pain to her right second metatarsophalangeal joint area. Conservative therapy has met with unsatisfactory results and the patient is agreeable to surgical intervention after risks and complications were discussed at length. No guarantees were extended to the patient and she is willing to proceed. DESCRIPTION OF PROCEDURE: The patient was brought back to the operating table, placed in secure supine position. Appropriate timeout was performed. A general anesthetic was then induced. Pneumatic thigh tourniquet was placed on the right lower extremity over several layers of padding. The right foot was then prepped and draped in normal sterile manner. The right foot was then elevated, allowed to exsanguinate after which the tourniquet was inflated to 250 mmHg. Attention was then directed to the dorsal aspect of the second ray, right foot where a 5 cm longitudinal linear incision was created at the surgical neck of the second metatarsal extending to the distal interphalangeal joint area of the toe. The incision was deepened down to the extensor tendon where a Z slide lengthening was performed. The extensor tendon was reflected proximally and the extensor santos released. At the metatarsophalangeal joint, the dorsal capsule was sharply incised as well as the sharp release of the medial and lateral collateral ligaments. The proximal phalanx was overlapping the dorsal head and surgical neck of the second metatarsal. Next, utilizing a McGlamry elevator, the plantar adhesions were released. Once this was done, the dorsal aspect of the second metatarsal head was inspected and found to be devoid of most articular cartilage. Some granular tissue was also noted. Again, the medial lateral collateral ligaments were released. Next, a Jc type osteotomy was performed. Once the cut was made with a power sagittal saw, the capital fragment was translocated proximally and fixated in its corrected position utilizing a 2.0 snap-off screw of 12 mm of length driven from dorsal to plantar across the osteotomy. The remaining head of the second metatarsal was further contoured and smoothed with a rongeur and hand rasp. This allowed the proximal phalanx to come down into more appropriate anatomical alignment with the second metatarsal head. Attention was then directed to the base of the right second toe where a guidewire was driven from dorsal to plantar. This was confirmed by intraoperative C-arm. Next, a plantar incision was made to the inferior aspect of the second digit and this incision was approximately 3 cm in length. Blunt and sharp dissection was carried out to the flexor tendons where the longitudinal split was performed to the flexor digitorum longus. The area of the plantar plate was identified and was reinforced utilizing 0 Ethibond in a box type stitch. Next, utilizing the TenoTac system overlying the guidewire, a hole was created from the plantar to the superior aspect of the proximal phalanx. The area was flushed after which the male component was placed in the inferior aspect of the barge pilot hole and the female side was applied to the dorsal aspect. The toe was held in a more anatomical position and the inferior male portion was then allowed to grasp the flexor tendons holding the toe down in more anatomical position. The dorsal female portion of the tendon intact was then screwed down securing the flexor tendons in its plantarflexory position. The wound was flushed with copious amounts of normal saline. The 0 Ethibond was then utilized to reinforce the medial and lateral collateral ligaments from the dorsal incision for the second metatarsophalangeal joint. It should be noted that prior to the TenoTac application, there was a guidewire placed from the distal phalanx to the proximal phalanx holding the toe in rectus alignment while positioning was performed. At this time, this guidewire was removed. The wound was flushed once again after which closure was performed in layers. Deep closure was performed with 3-0 Vicryl, superficial with 4-0 Vicryl, skin closed with 4-0 Prolene. The extensor tendon, of course, was repaired with 3-0 Vicryl prior to closure as well. Postoperative injection consisted of 15 mL of 0.5% Marcaine injected in local infusion to the surgical site. Postoperative dressing consisted of Betadine soaked Adaptic, sterile 4 x 4, sterile Kerlix all secured with a Coban wrap. The patient tolerated the anesthesia and procedure well, was transported from the operating room to the recovery area with vital signs stable and vascular status intact to all digits of the right foot. She was given a prescription for clindamycin as well as hydrocodone. She is to follow up in my office in 10 days' period of time. In the meantime, she is to be nonweightbearing on the right lower extremity. Job ID: [id number] DocumentID: [id number] Dictated Date: 03/14/2020 12:18:17 Fly Maker Date: 03/14/2020 21:45:03 Dictated By: ANGELIC KUHN
[~2021-10-06] VITALS: Ht 157 cm; Wt 52.7 kg
[~2021-10-06 13:34] MED LIST changes: +BUPIVACAINE 0.5% 30 ML (SENSORCAINE) VIAL ONE; +CLINDAMYCIN 600 MG/50 ML IVPB 50 ML IV ONE; +LACTATED RINGERS 1,000 ML IV SCH; -LIDOCAINE 1% INJ 20 ML 20 ML VIAL INJ ONE; +LIDOCAINE 1% INJ 20 ML 20 ML VIAL ONE; +LIDOCAINE PF 2% 5 ML (XYLOCAINE) VIAL ONE; +MEPERIDINE (DEMEROL) INJ 50 MG/ML IVP ONE; -MIDAZOLAM 2 MG/2 ML (VERSED) VIAL IVP ONE; +MIDAZOLAM 2 MG/2 ML (VERSED) VIAL ONE; -NS IV 1000 ML 1,000 ML IV STA; +ONDANSETRON 4 MG/2 ML (SDV) Z0FRAN IVP PRN; +ONDANSETRON 4 MG/2 ML (SDV) Z0FRAN ONE; +SEVOFLURANE (ULTANE) 15 ML INHAL SOLN ONE; -fentaNYL INJ 100 MCG/2 ML AMP IVP ONE; +fentaNYL INJ 100 MCG/2 ML AMP ONE; +morphine INJ 10 MG/ML 1ML (SYR OR VIAL) IVP ONE; +proPOfol 200 MG/20 ML (DIPRIVAN) VIAL IV ONE
== END | disposition home or self-care (01) ==
LOC: SDC 03-14 07:48
PROVIDERS: ATTEND Podiatrist Foot & Ankle Surgery
DX: M20.41 Other hammer toe(s) (acquired), right foot (principal); M89.371 Hypertrophy of bone, right ankle and foot; S63.210A Subluxation of metacarpophalangeal joint of right index finger, initial encounter; M19.071 Primary osteoarthritis, right ankle and foot; G43.909 Migraine, unspecified, not intractable, without status migrainosus; K21.9 Gastro-esophageal reflux disease without esophagitis; K58.9 Irritable bowel syndrome, unspecified; E78.5 Hyperlipidemia, unspecified; M79.7 Fibromyalgia; G47.00 Insomnia, unspecified; I73.9 Peripheral vascular disease, unspecified; I10 Essential (primary) hypertension; F33.9 Major depressive disorder, recurrent, unspecified; F41.9 Anxiety disorder, unspecified; Z87.891 Personal history of nicotine dependence; Z79.82 Long term (current) use of aspirin; Z79.899 Other long term (current) drug therapy; Z88.0 Allergy status to penicillin; Z88.1 Allergy status to other antibiotic agents; Z88.8 Allergy status to other drugs, medicaments and biological substances; Z90.710 Acquired absence of both cervix and uterus; Z90.89 Acquired absence of other organs; Z90.49 Acquired absence of other specified parts of digestive tract; Z85.038 Personal history of other malignant neoplasm of large intestine; Z80.9 Family history of malignant neoplasm, unspecified
CPT/HCPCS: 28285; 28308; 73620; 87081; 97161; C1713

== ENCOUNTER → 2021-10-06 | Outpatient (CLI) | payer BC ==
[~2021-10-06] VITALS: Ht 157.5 cm; Wt 54.4 kg
[2021-10-06] VITALS (9 sets, daily range): BP systolic 121–152; BP diastolic 57–82
[~2021-10-06] MED LIST changes: -GADOTERATE 0.5 MMOL/ML (CLARISCAN) 15 ML VIAL IV ONE; +HYDROcodone/APAP 5 MG/325 MG (LORTAB) TAB PO PRN; +LIDOCAINE 1% INJ 20 ML 20 ML VIAL INJ ONE; +MIDAZOLAM 2 MG/2 ML (VERSED) VIAL IVP ONE; +NS IV 1000 ML 1,000 ML IV STA; +fentaNYL INJ 100 MCG/2 ML AMP IVP ONE
[2021-10-06 07:47] LABS: BASOPHILS % (AUTO) 0 % (0-10); EOSINOPHILS # (AUTO) 0.3 10^3/uL (0.0-0.3); EOSINOPHILS % (AUTO) 5 % (0-10); HEMATOCRIT 29 % (35-52); HEMOGLOBIN 9.5 g/dL (11.5-16.0); LYMPHOCYTES # (AUTO) 1.8 10^3/uL (1.0-4.0); LYMPHOCYTES % (AUTO) 27 % (12-44); MEAN CORPUSCULAR HEMOGLOBIN 31 pg (25-34); MEAN CORPUSCULAR HGB CONC 33 g/dL (32-36); MEAN CORPUSCULAR VOLUME 94 fL (80-99); MEAN PLATELET VOLUME 10.9 fL (9.0-12.2); MONOCYTES # (AUTO) 0.8 10^3/uL (0.0-1.0); MONOCYTES % (AUTO) 12 % (0-12); NEUTROPHILS # (AUTO) 3.6 10^3/uL (1.8-7.8); NEUTROPHILS % (AUTO) 55 % (42-75); PLATELET COUNT 200 10^3/uL (130-400); WHITE BLOOD COUNT 6.5 10^3/uL (4.3-11.0)
[2021-10-06 08:23] LABS: INR 0.9 (0.8-1.4); PROTHROMBIN TIME PATIENT 12.7 SEC (12.2-14.7)
--- NOTE | 2021-10-06 10:28 | Diagnostic Imaging Report ---
TECHNIQUE: All CT scans use one or more of the following dose optimizing techniques: automated exposure control, MA and/or KvP adjustment based on patient size and exam type or iterative reconstruction. INDICATION: Liver mass. Patient presents for CT-guided liver biopsy. Patient brought to the CT suite placed on table in supine position. Axial imaging through the abdomen was performed to evaluate appropriate entry site. Left para-midline abdomen was prepped and draped in usual sterile fashion. Small amount of 1% lidocaine was utilized for local anesthesia. Procedure was performed utilizing conscious sedation with radiology nursing and constant patient monitoring. Patient was given a total of 50 mcg of fentanyl intravenously and 1 mg of Versed intravenously. Total procedure time was 7 minutes. 18-gauge coaxial Temno needle was advanced and placed with its tip along the margin of the dominant mass left lobe of the liver. Approximately 4 core biopsies were obtained. Needle was removed during blood patch administration. Follow-up imaging shows no complicating features. Patient tolerated the procedure well and left the department in stable condition. IMPRESSION: Successful CT-guided core biopsy of the dominant mass left lobe of the liver utilizing conscious sedation. Pathology results are currently pending. Dictated by: Dictated on workstation # [id number]
--- NOTE | 2021-10-06 11:42 | Pre-Op Note & Conscious Sedat ---
Pre-Operative Progress Note H&P Reviewed The H&P was reviewed, patient examined and no changes noted. Date H&P Reviewed: Oct 06, 2021 Time H&P Reviewed: 08:00 Pre-Op Diagnosis: liver mass Conscious Sedation Pre-Proced Time 08:00 ASA Score 2 For ASA 3 and 4: Consider anesthesia and medical clearance. Also, for patients with a history of failed moderate sedation consider anesthesia. Airway Lungs Heart ASA score ASA 1: a normal healthy patient ASA 2: a patient with a mild systemic disease (mid diabetes, controlled hypertension, obesity ASA 3: a patient with a severe systemic disease that limits activity (angina, COPD, prior Myocardial infarction) ASA 4: a patient with an incapacitating disease that is a constant threat to life (CHF, renal failure) ASA 5: a moribund patient not expected to survive 24 hrs. (ruptured aneurysm) ASA 6: a declared brain- patient whose organs are being harvested. For emergent operations, add the letter E after the classification Mallampati Classification Grade 2 Sedation Plan Analgesia, Amnesia, Plan communicated to team members, Discussed options with patient/fam, Discussed risks with patient/fam The patient is an appropriate candidate to undergo the planned procedure, sedation, and anesthesia. The patient immediately re-assessed prior to indication. RAFAEL MALLORY MD Oct 06, 2021 11:42
== END ==
LOC: SDC 07:14
PROVIDERS: ATTEND Family Medicine
DX: K76.89 Other specified diseases of liver (principal)
CPT/HCPCS: 36415; 77012; 85025; 85610; 85730; 99156

== ENCOUNTER 2021-10-26 10:48 | Outpatient (RCR) | payer BC ==
[~2021-10-26 10:48] MED LIST changes: -BUPIVACAINE 0.5% 30 ML (SENSORCAINE) VIAL ONE; -CLINDAMYCIN 600 MG/50 ML IVPB 50 ML IV ONE; -HYDROcodone/APAP 5 MG/325 MG (LORTAB) TAB PO PRN; -LACTATED RINGERS 1,000 ML IV SCH; -LIDOCAINE 1% INJ 20 ML 20 ML VIAL ONE; -LIDOCAINE PF 2% 5 ML (XYLOCAINE) VIAL ONE; -MEPERIDINE (DEMEROL) INJ 50 MG/ML IVP ONE; -MIDAZOLAM 2 MG/2 ML (VERSED) VIAL ONE; -ONDANSETRON 4 MG/2 ML (SDV) Z0FRAN IVP PRN; -ONDANSETRON 4 MG/2 ML (SDV) Z0FRAN ONE; -SEVOFLURANE (ULTANE) 15 ML INHAL SOLN ONE; -fentaNYL INJ 100 MCG/2 ML AMP ONE; -morphine INJ 10 MG/ML 1ML (SYR OR VIAL) IVP ONE; -proPOfol 200 MG/20 ML (DIPRIVAN) VIAL IV ONE
[2021-10-26 12:46] LABS: BASOPHILS % (AUTO) 0 % (0-10); EOSINOPHILS # (AUTO) 0.1 10^3/uL (0.0-0.3); EOSINOPHILS % (AUTO) 2 % (0-10); HEMATOCRIT 28 % (35-52); HEMOGLOBIN 9.1 g/dL (11.5-16.0); LYMPHOCYTES # (AUTO) 2.3 10^3/uL (1.0-4.0); LYMPHOCYTES % (AUTO) 34 % (12-44); MEAN CORPUSCULAR HEMOGLOBIN 31 pg (25-34); MEAN CORPUSCULAR HGB CONC 33 g/dL (32-36); MEAN CORPUSCULAR VOLUME 94 fL (80-99); MEAN PLATELET VOLUME 10.7 fL (9.0-12.2); MONOCYTES # (AUTO) 0.7 10^3/uL (0.0-1.0); MONOCYTES % (AUTO) 10 % (0-12); NEUTROPHILS # (AUTO) 3.6 10^3/uL (1.8-7.8); NEUTROPHILS % (AUTO) 53 % (42-75); PLATELET COUNT 203 10^3/uL (130-400); WHITE BLOOD COUNT 6.8 10^3/uL (4.3-11.0)
[2021-10-26 13:06] LABS: ALBUMIN 4.1 GM/DL (3.2-4.5); BILIRUBIN,TOTAL 0.2 MG/DL (0.1-1.0); CALCIUM 9.6 MG/DL (8.5-10.1); CREATININE SERUM 1.34 MG/DL (0.60-1.30); POTASSIUM 4.8 MMOL/L (3.6-5.0); TOTAL PROTEIN 8.4 GM/DL (6.4-8.2)
== END 2021-11-03 | disposition home or self-care (01) ==
LOC: ONC 10:48
PROVIDERS: ATTEND Internal Medicine Hematology & Oncology
DX: C18.9 Malignant neoplasm of colon, unspecified (principal); C78.5 Secondary malignant neoplasm of large intestine and rectum; I10 Essential (primary) hypertension; E78.2 Mixed hyperlipidemia
CPT/HCPCS: 80053; 82378; 85025; G0463; 99214

== ENCOUNTER → 2021-10-31 | Outpatient (CLI) | payer BC ==
--- NOTE | 2021-10-31 13:03 | Diagnostic Imaging Report ---
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 Serum blood glucose level time injection is 82 mg/dL. Patient was administered 13.5 mCi F-18 FDG intravenously in the right forearm and PET imaging was performed from the top skull to mid thighs. Noncontrast CT was also performed for attenuation correction and anatomic correlation. No prior PET/CT studies available for comparison. Comparison is made with a recent MRI from 09/21/2021. There is symmetric activity throughout the brain. Soft tissues of the neck are unremarkable. There is a hypermetabolic lymph node in the left axilla with an SUV max of 4.1. No mediastinal or hilar hypermetabolism is identified. No pulmonary parenchymal hypermetabolism is identified apart from very low level activity involving an area of density in the right middle lobe with SUV max of 2.0. A large hypermetabolic mass in the left lobe of the liver which has been recently biopsied is again noted with an SUV max of 8.2. This appears smaller and only mildly hypermetabolic mass in the dome of the right lobe the liver with SUV max of 3.3. The remainder of the abdomen and pelvis is unremarkable. IMPRESSION: 1. A PET/CT study demonstrating a large hypermetabolic mass left lobe liver consistent with the known metastatic lesion. There is a smaller mildly hypermetabolic lesion in the dome of the right lobe of the liver as well. There is also hypermetabolic lymph node in the left axilla. Dictated by: Dictated on workstation # [id number]
== END ==
LOC: RAD 09:45
PROVIDERS: ATTEND Internal Medicine Hematology & Oncology
DX: C80.1 Malignant (primary) neoplasm, unspecified (principal); C78.5 Secondary malignant neoplasm of large intestine and rectum; C78.7 Secondary malignant neoplasm of liver and intrahepatic bile duct
CPT/HCPCS: 78815; A9552

== ENCOUNTER 2021-11-13 13:05 | Outpatient (RCR) | payer BC ==
[2021-11-17] MEDS ORDERED: ACHD5005 PO (11:33)
== END 2021-12-04 | disposition home or self-care (01) ==
LOC: ONC 13:05
PROVIDERS: ATTEND Internal Medicine Hematology & Oncology
DX: C18.0 Malignant neoplasm of cecum (principal); C78.7 Secondary malignant neoplasm of liver and intrahepatic bile duct; I10 Essential (primary) hypertension; E78.2 Mixed hyperlipidemia; Z90.49 Acquired absence of other specified parts of digestive tract
CPT/HCPCS: 99213

== ENCOUNTER 2021-11-16 14:22 | Outpatient (CLI) | payer BC ==
[~2021-11-16] VITALS: Ht 157 cm; Wt 53.0 kg
[2021-11-17] MEDS ORDERED: ACHD5005 PO (11:33)
== END 2021-11-16 15:13 | disposition home or self-care (01) ==
LOC: PREOP 14:22
PROVIDERS: ATTEND Surgery
DX: Z01.818 Encounter for other preprocedural examination (principal)

== ENCOUNTER 2021-11-17 08:19 | Day surgery (SDC) | payer BC ==
[~2021-11-17] VITALS: Ht 157 cm; Wt 53.0 kg
[2021-11-17] VITALS (7 sets, daily range): BP systolic 100–146; BP diastolic 53–71
[2021-11-17] MEDS ORDERED: CLINDAMYCIN 600 MG/50 ML IVPB 50 ML IV ONE (08:30)
[2021-11-17] MEDS ORDERED: LACTATED RINGERS 1,000 ML IV PRN (09:45)
[2021-11-17] MEDS ORDERED: HEParin (CENTRAL IV FLUSH) 500 UNIT/5 ML SYR ONE (09:55)
[2021-11-17] MEDS ORDERED: LIDOCAINE/EPI 1%-1:200,000 (XYLOCAINE) 30 ML VIAL ONE (09:55)
[2021-11-17] MEDS ORDERED: 0.9% SODIUM CHLORIDE PF INJ 20 ML VIAL ONE (09:56)
[2021-11-17] MEDS ORDERED: MIDAZOLAM 2 MG/2 ML (VERSED) VIAL ONE ×2 (10:22→10:50)
[2021-11-17] MEDS ORDERED: PROPOFOL INJECTION 50 ML IV ONE (10:22)
[2021-11-17] MEDS ORDERED: LIDOCAINE PF 2% 5 ML (XYLOCAINE) VIAL ONE (10:50)
--- NOTE | 2021-11-17 11:29 | Progress Note-Pre Operative ---
Pre-Operative Progress Note H&P Reviewed The H&P was reviewed, patient examined and no changes noted. Date Seen by Provider: Nov 17, 2021 Time Seen by Provider: 10:00 Date H&P Reviewed: Nov 17, 2021 Time H&P Reviewed: 10:00 Pre-Operative Diagnosis: metastatic colon ca DAYANNA BALLESTEROS MD Nov 17, 2021 11:29
--- NOTE | 2021-11-17 11:32 | Progress Note-Post Operative ---
Post-Operative Progess Note Surgeon (s)/Director Mortgage (s) Surgeon DAYANNA BALLESTEROS MD Director Mortgage: none Pre-Operative Diagnosis metastatic colon ca Post-Operative Diagnosis same Procedure & Operative Findings Date of Procedure 11/17/21 Procedure Performed/Findings placement left subclavian groshong implantable catheter under flouroscopy. Anesthesia Type mac with local Estimated Blood Loss Estimated blood loss (mL): minimal Specimens/Packing Specimens Removed none DAYANNA BALLESTEROS MD Nov 17, 2021 11:31
[2021-11-17] MEDS ORDERED: ACHD5005 PO (11:33)
--- NOTE | 2021-11-17 11:34 | Discharge Inst-Surgical ---
D/C Lap Instructions-KIDO New, Converted, or Re-Newed RX: RX on Chart Follow Up PRN Activity as tolerated OK to access and use port anytime. Regular Diet Symptoms to Report: Fever over 101 degree F, Nausea/Vomiting Infection Signs and Symptoms to report: Increased redness, Foul odor of wound, Increased drainage Bathing instructions: May shower Operative Area Clean/Dry; Keep incision clean/dry If any problems/questions: Contact your physician or go to Emergency Room DAYANNA BALLESTEROS MD Nov 17, 2021 11:34
[2021-11-17] MEDS ORDERED: morphine INJ 10 MG/ML 1ML (SYR OR VIAL) IVP ONE (11:45)
[2021-11-17] MEDS ORDERED: morphine INJ 10 MG/ML 1ML (SYR OR VIAL) IVP PRN (11:45)
[2021-11-17] MEDS ORDERED: MEPERIDINE (DEMEROL) INJ 50 MG/ML IVP ONE (11:45)
[2021-11-17] MEDS ORDERED: ONDANSETRON 4 MG/2 ML (SDV) Z0FRAN IVP PRN ×2 (11:45)
[2021-11-17] MEDS ORDERED: HYDROcodone/APAP 5 MG/325 MG (LORTAB) TAB PO ONE (11:45)
[2021-11-17] MEDS ORDERED: ACETAMINOPHEN 325 MG TABLET PO PRN (11:45)
[2021-11-17] MEDS ORDERED: fentaNYL INJ 100 MCG/2 ML AMP IVP ONE (11:45)
--- NOTE | 2021-11-17 11:49 | Diagnostic Imaging Report ---
INDICATION: Port-A-Cath placement. Frontal chest obtained at 11:45 a.m. is compared to 05/02/2019. FINDINGS: Heart and mediastinal silhouette are normal in appearance. There is hyperinflation compatible with COPD. There is no pneumothorax or pleural fluid. There is a new Port-A-Cath over the left chest with catheter tip overlying the distal SVC. IMPRESSION: New Port-A-Cath in place as above. There is no pneumothorax or pleural fluid following device placement. There is COPD change. Dictated by: Dictated on workstation # [id number]
--- NOTE | 2021-11-17 13:52 | Diagnostic Imaging Report ---
INDICATION: Port-A-Cath placement. History of malignancy. Need for long-term IV access. COMPARISON: None. TOTAL FLUOROSCOPY TIME: 8 seconds. TOTAL NUMBER OF FLUOROSCOPIC IMAGES SAVED: 1. FINDINGS: Single intraoperative image intensifier view of the chest was obtained during Port-A-Cath placement. Image provided shows left-sided approach. Central tip terminates at the cavoatrial junction. Image provided is suboptimal to assess for pneumothorax secondary to modality. Please note, interpreting radiologist was not present during the procedure. IMPRESSION: 1. Fluoroscopic guidance provided during Port-A-Cath placement. Dictated by: Dictated on workstation # [id number]
== END 2021-11-17 12:37 | disposition home or self-care (01) ==
LOC: SDC 08:19
PROVIDERS: ATTEND Surgery
DX: C78.7 Secondary malignant neoplasm of liver and intrahepatic bile duct (principal); Z85.038 Personal history of other malignant neoplasm of large intestine; Z87.891 Personal history of nicotine dependence; Z86.718 Personal history of other venous thrombosis and embolism; Z86.711 Personal history of pulmonary embolism; I10 Essential (primary) hypertension; Z79.82 Long term (current) use of aspirin; Z79.899 Other long term (current) drug therapy
CPT/HCPCS: 36561; 71045; 76000; 87081; C1788

== ENCOUNTER 2021-11-23 07:47 | Outpatient (CLI) | payer BC ==
[~2021-11-23] VITALS: Ht 157 cm; Wt 53.0 kg
[2021-11-23] VITALS (12 sets, daily range): BP systolic 92–149; BP diastolic 52–79
[2021-11-23] MEDS ORDERED: LIDOCAINE 1% INJ 20 ML VIAL INJ ONE (08:15)
[2021-11-23] MEDS ORDERED: MIDAZOLAM 2 MG/2 ML (VERSED) VIAL IVP ONE (08:15)
[2021-11-23] MEDS ORDERED: fentaNYL INJ 100 MCG/2 ML AMP IVP ONE (08:15)
[2021-11-23 08:28] LABS: BASOPHILS % (AUTO) 1 % (0-10); EOSINOPHILS # (AUTO) 0.2 10^3/uL (0.0-0.3); EOSINOPHILS % (AUTO) 2 % (0-10); HEMATOCRIT 27 % (35-52); HEMOGLOBIN 8.9 g/dL (11.5-16.0); LYMPHOCYTES # (AUTO) 1.5 10^3/uL (1.0-4.0); LYMPHOCYTES % (AUTO) 23 % (12-44); MEAN CORPUSCULAR HEMOGLOBIN 30 pg (25-34); MEAN CORPUSCULAR HGB CONC 33 g/dL (32-36); MEAN CORPUSCULAR VOLUME 93 fL (80-99); MEAN PLATELET VOLUME 10.2 fL (9.0-12.2); MONOCYTES # (AUTO) 0.6 10^3/uL (0.0-1.0); MONOCYTES % (AUTO) 9 % (0-12); NEUTROPHILS # (AUTO) 4.5 10^3/uL (1.8-7.8); NEUTROPHILS % (AUTO) 66 % (42-75); PLATELET COUNT 183 10^3/uL (130-400); WHITE BLOOD COUNT 6.8 10^3/uL (4.3-11.0)
[2021-11-23 08:41] LABS: INR 0.9 (0.8-1.4); PROTHROMBIN TIME PATIENT 12.2 SEC (12.2-14.7)
[2021-11-23] MEDS ORDERED: NS IV 1000 ML 1,000 ML IV SCH (09:00)
[2021-11-23] MEDS ORDERED: fentaNYL INJ 100 MCG/2 ML AMP ONE (09:03)
[2021-11-23] MEDS ORDERED: MIDAZOLAM 2 MG/2 ML (VERSED) VIAL ONE (09:03)
[2021-11-23] MEDS ORDERED: LIDOCAINE 1% INJ 20 ML VIAL ONE (09:03)
[2021-11-23] MEDS ORDERED: NS IV 1000 ML 1,000 ML ONE (09:27)
[2021-11-23] MEDS ORDERED: HYDROcodone/APAP 5 MG/325 MG (LORTAB) TAB PO PRN (10:00)
--- NOTE | 2021-11-23 10:20 | Pre-Op Note & Conscious Sedat ---
Pre-Operative Progress Note H&P Reviewed The H&P was reviewed, patient examined and no changes noted. Date H&P Reviewed: Nov 23, 2021 Time H&P Reviewed: 09:00 Pre-Op Diagnosis: Liver mass Conscious Sedation Pre-Proced Time 09:00 ASA Score 2 For ASA 3 and 4: Consider anesthesia and medical clearance. Also, for patients with a history of failed moderate sedation consider anesthesia. Airway Lungs Heart ASA score ASA 1: a normal healthy patient ASA 2: a patient with a mild systemic disease (mid diabetes, controlled hypertension, obesity ASA 3: a patient with a severe systemic disease that limits activity (angina, COPD, prior Myocardial infarction) ASA 4: a patient with an incapacitating disease that is a constant threat to life (CHF, renal failure) ASA 5: a moribund patient not expected to survive 24 hrs. (ruptured aneurysm) ASA 6: a declared brain- patient whose organs are being harvested. For emergent operations, add the letter E after the classification Mallampati Classification Grade 2 Sedation Plan Analgesia, Amnesia, Plan communicated to team members, Discussed options with patient/fam, Discussed risks with patient/fam The patient is an appropriate candidate to undergo the planned procedure, sedation, and anesthesia. The patient immediately re-assessed prior to indication. RAFAEL MALLORY MD Nov 23, 2021 10:20
--- NOTE | 2021-11-23 10:50 | Diagnostic Imaging Report ---
INDICATION: Liver mass. Patient presents for CT-guided liver biopsy. TECHNIQUE: All CT scans use one or more of the following dose optimizing techniques: automated exposure control, MA and/or KvP adjustment based on patient size and exam type or iterative reconstruction. FINDINGS: Patient was brought to the CT suite, placed on table in the supine position. Axial imaging through the abdomen was performed to evaluate appropriate entry site. Upper abdomen was prepped and draped in the usual sterile fashion. A small amount of 1% lidocaine was utilized for local anesthesia. Procedure was performed utilizing conscious sedation with radiology nursing and constant patient monitoring. Patient was given a total of 2 mg of Versed intravenously and 50 mcg of fentanyl intravenously. Total procedure time was 5 minutes. 18-gauge coaxial Temno needle was advanced and placed with its tip in the low-density lesion in the left lobe of liver. Four core biopsies were obtained. Needle was withdrawn during an injection of a blood patch. Hemostasis was obtained using manual compression. Patient tolerated the procedure well and left the department in stable condition. IMPRESSION: Successful CT-guided liver mass biopsy, utilizing conscious sedation. Pathology results are currently pending. Dictated by: Dictated on workstation # [id number]
== END 2021-11-23 12:30 | disposition home or self-care (01) ==
LOC: SDC 07:47
PROVIDERS: ATTEND Internal Medicine Hematology & Oncology
DX: C18.0 Malignant neoplasm of cecum (principal); C78.7 Secondary malignant neoplasm of liver and intrahepatic bile duct; E78.2 Mixed hyperlipidemia; I10 Essential (primary) hypertension; Z90.49 Acquired absence of other specified parts of digestive tract; Z98.890 Other specified postprocedural states
CPT/HCPCS: 36415; 77012; 85025; 85610; 85730

== ENCOUNTER 2021-11-23 13:10 | Emergency (ER) | payer BC ==
[~2021-11-23] VITALS: Ht 157.5 cm; Wt 53.1 kg
[2021-11-23] MEDS ORDERED: HYDROmorphone 2 MG/ML VIAL (DILAUDID) IV ONE (14:00)
--- NOTE | 2021-11-23 14:13 | ED General ---
General Chief Complaint: General Problems/Pain Stated Complaint: S/P LIVER BIOPSY, SEVERE PAIN Nursing Triage Note: PT TO RM 2 W REPORTS OF SEVERE ABD PAIN FOLLOWING LIVER BIOPSY PERFORMED BY DR. MALLORY. PT REPORTS SHE HAS CA IN LIVER, HAS APPT SCHEDULED W DR. PEDROZA CLOTHING PATTERN PREPARER ON SATURDAY AND WILL BEGIN CHEMO SOON. Source of Information: Patient Exam Limitations: No Limitations History of Present Illness Date Seen by Provider: Nov 23, 2021 Time Seen by Provider: 14:11 Initial Comments To ER with severe epigastric abdominal pain. She felt okay this morning, had a CT-guided liver biopsy today as she has known colon cancer with suspected metastasis to the liver. Pain was well controlled and then she developed severe pain after the procedure. She thought she can make at home to take hydrocodone but the pain was too intense so they turned around and came back. Timing/Duration: 1-3 Hours Severity: Moderate Associated Systoms: Denies Symptoms Allergies and Home Medications Allergies Coded Allergies: Penicillins (Verified Allergy, Mild, YEAST INFECTION, 03/11/20) doxycycline (Verified Allergy, Unknown, 03/11/20) levofloxacin (Verified Allergy, Unknown, 03/11/20) lovastatin (Verified Allergy, Unknown, 03/11/20) Patient Home Medication List Home Medication List Reviewed: Yes Amlodipine Besylate (Amlodipine Besylate) 5 Mg Tablet, 5 MG PO DAILY, (Reported) Entered as Reported by: AMINA MARIE on 03/11/20 1207 Aspirin (Aspir 81) 81 Mg Tablet.dr, 81 MG PO DAILY, (Reported) Entered as Reported by: AMINA MARIE on 03/19/19 1600 Aspirin/Acetaminophen/Caffeine (Excedrin Migraine Caplet) 1 Each Tablet, 2 EACH PO Q6-8HR PRN for Headache, (Reported) Entered as Reported by: AMINA MARIE on 03/11/20 1207 Fluoxetine HCl (Prozac) 20 Mg Capsule, 20 MG PO DAILY, (Reported) Entered as Reported by: AMINA MARIE on 03/19/19 1600 Fluticasone Propionate (Flonase Allergy Relief) 9.9 Ml [place].susp, 2 SPRAY NS DAILY, (Reported) Entered as Reported by: ELOY STRICKLAND on 04/30/19 1525 Iron (Iron) 18 Mg Tablet, 27 MG PO Q48H, (Reported) Entered as Reported by: AMINA MARIE on 03/19/19 1600 L.acidoph & Paracasei,B.lactis (Probiotic) 1 Each Capsule, 1 EACH PO DAILY, (Reported) Entered as Reported by: AMINA MARIE on 03/11/20 1207 Losartan Potassium (Losartan Potassium) 50 Mg Tablet, 50 MG PO DAILY, (Reported) Entered as Reported by: AMINA MARIE on 03/11/20 1207 Multivitamin (Multiple Vitamins) 1 Each Tablet, 1 TAB PO BID, (Reported) Entered as Reported by: AMINA MARIE on 03/19/19 1600 Tramadol HCl (Tramadol HCl) 50 Mg Tablet, 100 MG PO Q6H PRN for PAIN-MODERATE, (Reported) Entered as Reported by: LUZ BURNS on 04/29/19 2112 Discontinued Medications Clindamycin HCl (Clindamycin HCl) 150 Mg Capsule, 150 MG PO Q6H Discontinued Reason: No Longer Taking Prescribed by: JAYDEN MERIDA on 03/14/20 1209 Hydrocodone/Acetaminophen (Hydrocodone-Acetamin 5-325 mg) 1 Each Tablet, 1 EACH PO Q6H Discontinued Reason: No Longer Taking Prescribed by: JAYDEN MERIDA on 03/14/20 1209 Hydrocodone/Acetaminophen (Hydrocodone-Acetamin 5-325 mg) 1 Each Tablet, 1 TAB PO Q4H PRN for PAIN-MODERATE (5-7) Discontinued Reason: Provider Change Prescribed by: DAYANNA BALLESTEROS on 11/17/21 1133 Review of Systems Review of Systems Constitutional: see HPI EENTM: see HPI Respiratory: no symptoms reported Cardiovascular: no symptoms reported Genitourinary: no symptoms reported Musculoskeletal: no symptoms reported Skin: no symptoms reported Psychiatric/Neurological: No Symptoms Reported Past Hdagada-Ejfojm-Btfrtj Hx Patient Social History Tobacco Use?: No Use of E-Cig and/or Vaping dev: No Substance use?: No Alcohol Use?: No Immunizations Up To Date Influenza Vaccine Up-to-Date: Yes; Up-to-Date First/Initial COVID19 Vaccinat: FEBRUARY 01 2021 Second COVID19 Vaccination Kaveh: MARCH 01 2021 Third COVID19 Vaccination Date: OCT 03 2021 COVID19 Vaccine 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: MODERNA Seasonal Allergies Seasonal Allergies: Yes Past Medical History Surgery/Hospitalization HX: COLON CA W METS TO LIVER Surgeries: Yes (BOWEL RESECTION, SEVERAL SX AFTER GB-SEPSIS, ) Appendectomy, Section, Gallbladder, Hysterectomy Respiratory: No (NOV 2017-SEPSIS/ TRACH ON VENT) Pulmonary Embolism Currently Using CPAP: No Currently Using BIPAP: No Cardiac: Yes Deep Vein Thrombosis, Hypertension, Palpitations Neurological: Yes Headaches /Migraines 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 Sexually Transmitted Disease: No HIV/AIDS: No Genitourinary: No Gastrointestinal: Yes Chronic Constipation, Chronic Diarrhea, Polyps Musculoskeletal: Yes (HX FOOT DROP, 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) Chronic Back Pain Endocrine: Yes (REYNAUDS) HEENT: Yes (GLASSES, UPPER DENTURE) Loss of Vision: Bilateral Hearing Impairment: Denies Cancer: Yes Liver, Colon Did You Recieve Any Treatments: Yes What Type of Treatment Did You: Surgical Intervention Psychosocial: Yes Anxiety, Depression Integumentary: No Blood Disorders: No Adverse Reaction/Blood Tranf: No (HAS HAD BLOOD WITH NO REACTION) Family Medical History Colon cancer 19 MOTHER Diabetes mellitus 19 MOTHER Physical Exam Vital Signs Vital Signs - First Documented 11/23/21 13:19 Temp 37.0 Pulse 75 Resp 20 B/P (MAP) 112/84 (93) Pulse Ox 98 O2 Delivery Room Air Capillary Refill : Height, Weight, BMI Height: 5'1.00" Weight: 119lbs. 9.0oz. 54.574792kk; 21.00 BMI Method:Stated General Appearance: No Apparent Distress, WD/WN, Thin Eyes: Bilateral Eye Normal Inspection, Bilateral Eye PERRL Neck: Full Range of Motion, Normal Inspection Respiratory: No Accessory Muscle Use, No Respiratory Distress Cardiovascular: Regular Rate, Rhythm, Normal Peripheral Pulses Gastrointestinal: Soft, Tenderness Neurologic/Psychiatric: Alert, Oriented x3 Skin: Normal Color, Warm/Dry Progress/Results/Core Measures Suspected Sepsis SIRS Temperature: Pulse: 75 Respiratory Rate: 20 Laboratory Tests 11/23/21 14:10: White Blood Count 8.3 Blood Pressure 112 /84 Mean: 93 Laboratory Tests 11/23/21 14:10: Creatinine 1.30, INR Comment 0.9, Platelet Count 163, Total Bilirubin 0.3 Results/Orders Lab Results Laboratory Tests Test 11/23/21 14:10 Range/Units White Blood Count 8.3 4.3-11.0 10^3/uL Red Blood Count 2.77 L 3.80-5.11 10^6/uL Hemoglobin 8.4 L 11.5-16.0 g/dL Hematocrit 26 L 35-52 % Mean Corpuscular Volume 94 80-99 fL Mean Corpuscular Hemoglobin 30 25-34 pg Mean Corpuscular Hemoglobin Concent 32 32-36 g/dL Red Cell Distribution Width 13.4 10.0-14.5 % Platelet Count 163 130-400 10^3/uL Mean Platelet Volume 10.4 9.0-12.2 fL Immature Granulocyte % (Auto) 0 % Neutrophils (%) (Auto) 80 H 42-75 % Lymphocytes (%) (Auto) 12 12-44 % Monocytes (%) (Auto) 7 0-12 % Eosinophils (%) (Auto) 1 0-10 % Basophils (%) (Auto) 0 0-10 % Neutrophils # (Auto) 6.6 1.8-7.8 10^3/uL Lymphocytes # (Auto) 1.0 1.0-4.0 10^3/uL Monocytes # (Auto) 0.6 0.0-1.0 10^3/uL Eosinophils # (Auto) 0.1 0.0-0.3 10^3/uL Basophils # (Auto) 0.0 0.0-0.1 10^3/uL Immature Granulocyte # (Auto) 0.0 0.0-0.1 10^3/uL Prothrombin Time 12.6 12.2-14.7 SEC INR Comment 0.9 0.8-1.4 Sodium Level 139 135-145 MMOL/L Potassium Level 4.2 3.6-5.0 MMOL/L Chloride Level 110 H 98-107 MMOL/L Carbon Dioxide Level 21 21-32 MMOL/L Anion Gap 8 5-14 MMOL/L Blood Urea Nitrogen 28 H 7-18 MG/DL Creatinine 1.30 0.60-1.30 MG/DL Estimat Glomerular Filtration Rate 47 BUN/Creatinine Ratio 22 Glucose Level 116 H 70-105 MG/DL Calcium Level 9.2 8.5-10.1 MG/DL Corrected Calcium 9.4 8.5-10.1 MG/DL Total Bilirubin 0.3 0.1-1.0 MG/DL Aspartate Amino Transf (AST/SGOT) 53 H 5-34 U/L Alanine Aminotransferase (ALT/SGPT) 45 0-55 U/L Alkaline Phosphatase 130 40-136 U/L Total Protein 7.7 6.4-8.2 GM/DL Albumin 3.8 3.2-4.5 GM/DL My Orders Orders - ANH AMBROCIO [employer]OB[employer] FINDER Cbc With Automated Diff (11/23/21 13:49) Comprehensive Metabolic Panel (11/23/21 13:49) Protime With Inr (11/23/21 13:49) Ed Iv/Invasive Line Start (11/23/21 13:49) Ct Abdomen/Pelvis W (11/23/21 13:49) Hydromorphone Injection (Dilaudid Inject (11/23/21 14:00) Lactated Ringers (Lr 1000 Ml Iv Solution (11/23/21 14:45) Iohexol Injection (Omnipaque 350 Mg/Ml 1 (11/23/21 15:00) Received Contrast (Hold Metformin- Contr (11/23/21 15:00) Ns (Ivpb) (Sodium Chloride 0.9% Ivpb Bag (11/23/21 15:00) Sodium Chloride Flush (Catheter Flush Sy (11/23/21 15:00) Medications Given in ED Current Medications Medications Dose Ordered Sig/Juan Route Start Time Stop Time Status Last Admin Dose Admin Hydromorphone HCl 0.5 mg ONCE ONCE IV 11/23/21 14:00 11/23/21 14:01 DC 11/23/21 14:42 0.5 MG Iohexol 75 ml ONCE ONCE IV 11/23/21 15:00 11/23/21 15:01 DC 11/23/21 15:02 74 ML Sodium Chloride 10 ml NEEDED PRN IV 11/23/21 15:00 11/23/21 15:02 10 ML Sodium Chloride 100 ml ONCE ONCE IV 11/23/21 15:00 11/23/21 15:01 DC 11/23/21 15:02 80 ML Vital Signs/I&O 11/23/21 13:19 Temp 37.0 Pulse 75 Resp 20 B/P (MAP) 112/84 (93) Pulse Ox 98 O2 Delivery Room Air Capillary Refill : Blood Pressure Mean: 93 Departure Impression Primary Impression: Other acute postprocedural pain Disposition: 01 HOME, SELF-CARE Condition: Stable Departure-Patient Inst. Decision time for Depature: 15:14 Referrals: SELF,BRETT BUTLER (PCP/Family) Primary Care Physician Patient Instructions: Acute Pain, Adult Add. Discharge Instructions: 1. Return to ER for any concerns 2. Follow-up with your doctor next week 3. All discharge instructions reviewed with patient and/or family. Voiced understanding. ANH AMBROCIO APRN Nov 23, 2021 14:13
[2021-11-23 14:20] LABS: BASOPHILS % (AUTO) 0 % (0-10); EOSINOPHILS # (AUTO) 0.1 10^3/uL (0.0-0.3); EOSINOPHILS % (AUTO) 1 % (0-10); HEMATOCRIT 26 % (35-52); HEMOGLOBIN 8.4 g/dL (11.5-16.0); LYMPHOCYTES % (AUTO) 12 % (12-44); MEAN CORPUSCULAR HEMOGLOBIN 30 pg (25-34); MEAN CORPUSCULAR HGB CONC 32 g/dL (32-36); MEAN CORPUSCULAR VOLUME 94 fL (80-99); MEAN PLATELET VOLUME 10.4 fL (9.0-12.2); MONOCYTES # (AUTO) 0.6 10^3/uL (0.0-1.0); MONOCYTES % (AUTO) 7 % (0-12); NEUTROPHILS # (AUTO) 6.6 10^3/uL (1.8-7.8); NEUTROPHILS % (AUTO) 80 % (42-75); PLATELET COUNT 163 10^3/uL (130-400); WHITE BLOOD COUNT 8.3 10^3/uL (4.3-11.0)
[2021-11-23 14:30] LABS: ALBUMIN 3.8 GM/DL (3.2-4.5); INR 0.9 (0.8-1.4); PROTHROMBIN TIME PATIENT 12.6 SEC (12.2-14.7)
[2021-11-23 14:31] LABS: POTASSIUM 4.2 MMOL/L (3.6-5.0)
[2021-11-23 14:32] LABS: CALCIUM 9.2 MG/DL (8.5-10.1)
[2021-11-23 14:33] LABS: TOTAL PROTEIN 7.7 GM/DL (6.4-8.2)
[2021-11-23 14:35] LABS: BILIRUBIN,TOTAL 0.3 MG/DL (0.1-1.0)
[2021-11-23 14:36] LABS: CREATININE SERUM 1.3 MG/DL (0.60-1.30)
[2021-11-23] MEDS ORDERED: LACTATED RINGERS 1,000 ML IV SCH (14:45)
[2021-11-23] MEDS ORDERED: CATHETER FLUSH 10 ML SYR IV PRN (15:00)
[2021-11-23] MEDS ORDERED: HOLD METFORMIN - RECEIVED CONTRAST 20 ML VIAL IV SCH (15:00)
[2021-11-23] MEDS ORDERED: NS 100 ML (IVPB) BAG IV ONE (15:00)
[2021-11-23] MEDS ORDERED: IOHEXOL 350 MG/ML 100 ML (OMNIPAQUE 350) VIAL IV ONE (15:00)
[2021-11-23 15:27] VITALS: BP 113/64
--- NOTE | 2021-11-23 15:58 | Diagnostic Imaging Report ---
PROCEDURE: CT abdomen and pelvis with contrast. TECHNIQUE: Multiple contiguous axial images were obtained through the abdomen and pelvis after administration of intravenous contrast. Auto Exposure Controls were utilized during the CT exam to meet ALARA standards for radiation dose reduction. All CT scans use one or more of the following dose optimizing techniques: Automated exposure control, MA and/or KvP adjustment based on patient size and exam type or iterative reconstruction. INDICATION: Abdominal pain. Patient had a recent CT-guided liver biopsy earlier the same day. FINDINGS: The lung bases are clear. Low-density masses in the liver are again noted and appear similar to recent PET/CT study. There is a small amount of gas within the dominant left lobe liver lesion status post recent CT-guided biopsy. No perihepatic or subcapsular fluid collection is seen to suggest hematoma. No acute extravasation of contrast is identified. There is no evidence of hemoperitoneum. The pancreas, spleen, adrenal glands, and kidneys are unremarkable. Aorta is nonaneurysmal. The bowel loops are unremarkable. Bladder is decompressed. IMPRESSION: Status post CT-guided liver biopsy. No perihepatic or subcapsular hematoma is seen. There is no acute extravasation identified. No hemoperitoneum is identified. No definite complicating features from recent biopsy are identified. Dictated by: Dictated on workstation # [id number]
== END 2021-11-23 15:27 | disposition home or self-care (01) ==
LOC: EDUNIT# 13:10 → ER 13:11
DX: G89.18 Other acute postprocedural pain (principal); R10.13 Epigastric pain; C18.9 Malignant neoplasm of colon, unspecified; I10 Essential (primary) hypertension; G89.29 Other chronic pain; M54.9 Dorsalgia, unspecified; F41.9 Anxiety disorder, unspecified; F32.A Depression, unspecified; Z79.82 Long term (current) use of aspirin; Z79.891 Long term (current) use of opiate analgesic; Z79.899 Other long term (current) drug therapy
CPT/HCPCS: 36415; 74177; 80053; 85025; 85610

== ENCOUNTER → 2022-02-19 | Outpatient (CLI) | payer BC ==
--- NOTE | 2022-02-19 11:39 | Diagnostic Imaging Report ---
INDICATION: Malignant neoplasm of the cecum, restaging. Serum blood glucose level at time of injection 99 mg/dL. Patient was administered 13.4 mCi F-18 FDG intravenously in the right arm and PET imaging was performed from the top of skull to mid thighs. Noncontrast CT was also performed for attenuation correction and anatomic correlation. Correlation is made with prior PET/CT study from 10/31/2021. There is symmetric activity throughout the brain. Soft tissues of the neck are unremarkable. Previously noted hypermetabolic lymph nodes left axilla are no longer hypermetabolic. No mediastinal or hilar hypermetabolism is seen. No pulmonary parenchymal hypermetabolism is identified. There continues to be large areas of low density in the right dome of the liver as well as the left hepatic lobe however, these are no longer hypermetabolic. Physiologic activity throughout the gastrointestinal and genitourinary tract abdomen and pelvis noted. No suspicious areas of hypermetabolism are detected. IMPRESSION: Previously hypermetabolic lymph nodes left axilla as well as the hypermetabolic liver masses are no longer hypermetabolic. No new abnormality is detected. Dictated by: Dictated on workstation # [id number]
== END ==
LOC: RAD 08:15
PROVIDERS: ATTEND Internal Medicine Hematology & Oncology
DX: C18.0 Malignant neoplasm of cecum (principal); C78.7 Secondary malignant neoplasm of liver and intrahepatic bile duct; D64.9 Anemia, unspecified
CPT/HCPCS: 78815; A9552

== ENCOUNTER → 2022-05-16 | Outpatient (CLI) | payer BC ==
[~2022-05-16] MED LIST changes: -ASPI-789 PO; +ASPI1TAB23 PO; +CATHETER FLUSH 10 ML SYR IV PRN; +HOLD METFORMIN - RECEIVED CONTRAST 20 ML VIAL IV SCH; +IOHEXOL 350 MG/ML 100 ML (OMNIPAQUE 350) VIAL IV ONE; +NS 100 ML (IVPB) BAG IV ONE
--- NOTE | 2022-05-16 10:10 | Diagnostic Imaging Report ---
INDICATION: Colon cancer, followup. TECHNIQUE: Multiple contiguous axial images were obtained through the chest, abdomen, and pelvis after the administration of intravenous contrast. Auto Exposure Controls were utilized during the CT exam to meet ALARA standards for radiation dose reduction. Comparison made to previous CT abdomen and pelvis 11/23/2021. CT chest findings: There are no enlarged mediastinal nodes. There is calcified node in the mediastinum which may represent old granulomatous disease. Port-A-Cath over the left chest is again noted. There is no pleural or pericardial fluid. Lung parenchymal windows show some minimal linear scarring in the lingular region and a calcified granuloma in the right middle lobe. There is no new pulmonary parenchymal nodule or infiltrate. CT abdomen and pelvis findings: The liver again shows a large complex lesion in the left lobe with some areas of septation but predominantly fluidlike density. The air bubbles seen within this abnormality on the prior study of 11/23/2021 are no longer present. The lesion of the left lobe overall measures about 6.9 x 6.1 cm, this appears stable to slightly decreased in size compared to the previous study. There is a lesion in the right lobe of the liver which is unchanged compared to the prior study but has a more fluidlike density. This measures 3.0 x 2.0 cm. Patient has had previous cholecystectomy. Spleen, adrenals, and pancreas are normal. Kidneys bilaterally are unremarkable. There is no retroperitoneal mass or adenopathy. There are no ascites or normal fluid collections. There is no pelvic mass or lymphadenopathy. IMPRESSION: CT chest shows no overt adenopathy or overt metastatic disease in the chest. CT abdomen and pelvis demonstrates 2 lesions in the liver as described above which are similar in size compared to the prior study but show more fluidlike nature. This may represent response to treatment. No new liver lesions are seen. There is no other focal abnormality elsewhere in the abdomen or pelvis. Dictated by: Dictated on workstation # [id number]
== END ==
LOC: RAD FS 08:43
PROVIDERS: ATTEND Internal Medicine Hematology & Oncology
DX: Z08 Encounter for follow-up examination after completed treatment for malignant neoplasm (principal); C18.0 Malignant neoplasm of cecum; C78.7 Secondary malignant neoplasm of liver and intrahepatic bile duct; D64.9 Anemia, unspecified; Z95.9 Presence of cardiac and vascular implant and graft, unspecified
CPT/HCPCS: 71260; 74177; Q9967

== ENCOUNTER → 2022-08-22 | Outpatient (CLI) | payer BC ==
--- NOTE | 2022-08-22 09:58 | Diagnostic Imaging Report ---
PROCEDURE: CT chest, abdomen, and pelvis with contrast. TECHNIQUE: Multiple contiguous axial images were obtained through the chest, abdomen, and pelvis after the administration of intravenous contrast. Auto Exposure Controls were utilized during the CT exam to meet ALARA standards for radiation dose reduction. INDICATION: Colon cancer, follow-up. Correlation is made with prior CT from 05/16/2022. CT CHEST: A left chest wall port has the tip at the SVC right atrial junction. No axillary lymphadenopathy is detected. No mediastinal or hilar lymphadenopathy is detected. There is no pericardial or pleural fluid identified. Calcified granuloma right middle lobe is noted. There is some scarring or atelectasis in right middle lobe as well. No noncalcified pulmonary nodules or masses are seen. CT abdomen and pelvis: A low-attenuation lesion in the dome right lobe measures 2.9 x 1.9 cm, stable. The dominant low-attenuation lesion left lobe appears to be fairly stable as well at approximately 7.3 x 6.2 cm. No new liver lesion is detected. Gallbladder surgically absent. There is no biliary ductal dilatation. Pancreas and spleen are unremarkable. No adrenal mass is detected. Kidneys are unremarkable. Aorta is calcified but nonaneurysmal. No central retroperitoneal or mesenteric lymphadenopathy is identified. The bowel loops demonstrate moderate amount of barium throughout the colon. No obstruction is seen. There is no free fluid or fluid collection identified. No iliac or inguinal lymphadenopathy is seen. Bladder is unremarkable. Uterus is absent or atrophic. Bony structures are nonacute. IMPRESSION: 1. No evidence of thoracic lymphadenopathy or pulmonary metastatic disease. 2. Stable low-attenuation lesions within the liver when compared with exam from 05/16/2022. No abdominal or pelvic lymphadenopathy is detected. Dictated by: Dictated on workstation # [id number]
== END ==
LOC: RAD FS 08:02
PROVIDERS: ATTEND Nurse Practitioner Adult Health
DX: C18.0 Malignant neoplasm of cecum (principal); C78.7 Secondary malignant neoplasm of liver and intrahepatic bile duct
CPT/HCPCS: 71260; 74177; Q9967

== ENCOUNTER 2023-07-16 19:15 | Inpatient (IN) | payer BC, OTHER ==
[~2023-07-16] VITALS: Ht 157.5 cm; Wt 53.7 kg
[~2023-07-16 19:15] MED LIST changes: -CATHETER FLUSH 10 ML SYR IV PRN; -HOLD METFORMIN - RECEIVED CONTRAST 20 ML VIAL IV SCH; -IOHEXOL 350 MG/ML 100 ML (OMNIPAQUE 350) VIAL IV ONE; -NS 100 ML (IVPB) BAG IV ONE
--- NOTE | 2023-07-16 19:28 | ED Neurological Problem ---
General Stated Complaint: STROKE SYMPTOMS Source: patient, family, EMS Exam Limitations: no limitations History of Present Illness Date Seen by Provider: Jul 16, 2023 Time Seen by Provider: 19:14 Initial Comments 63-year-old female with past medical history of metastatic colon cancer and high blood pressure coming in via EMS due to concerns for stroke. She was doing normal, was with her , and at roughly 6:45 PM tonight, had difficulty speaking. EMS reports and expressive aphasia and elevated blood pressure 200s systolic. Glucose was just above 100. She does not take any blood thinners and denies any trauma. Otherwise denying any other acute complaints and no prior history of stroke. Allergies and Home Medications Allergies Coded Allergies: Penicillins (Verified Allergy, Mild, YEAST INFECTION, 03/11/20) doxycycline (Verified Allergy, Unknown, 03/11/20) levofloxacin (Verified Allergy, Unknown, 03/11/20) lovastatin (Verified Allergy, Unknown, 03/11/20) Patient Home Medication List Home Medication List Reviewed: Yes Amlodipine Besylate (Amlodipine Besylate) 5 Mg Tablet, 5 MG PO DAILY, (Reported) Entered as Reported by: AMINA MARIE on 03/11/20 1207 Aspirin (Aspir 81) 81 Mg Tablet.dr, 81 MG PO DAILY, (Reported) Entered as Reported by: AMINA MARIE on 03/19/19 1600 Aspirin/Acetaminophen/Caffeine (Excedrin Migraine Caplet) 1 Each Tablet, 2 EACH PO Q6-8HR PRN for Headache, (Reported) Entered as Reported by: AMINA MARIE on 03/11/20 1207 Fluoxetine HCl (Prozac) 20 Mg Capsule, 20 MG PO DAILY, (Reported) Entered as Reported by: AMINA MARIE on 03/19/19 1600 Fluticasone Propionate (Flonase Allergy Relief) 9.9 Ml Weems.susp, 2 SPRAY NS DAILY, (Reported) Entered as Reported by: ELOY STRICKLAND on 04/30/19 1525 Iron (Iron) 18 Mg Tablet, 27 MG PO Q48H, (Reported) Entered as Reported by: AMINA MARIE on 03/19/19 1600 L.acidoph & Paracasei,B.lactis (Probiotic) 1 Each Capsule, 1 EACH PO DAILY, (Reported) Entered as Reported by: AMINA MARIE on 03/11/20 1207 Losartan Potassium (Losartan Potassium) 50 Mg Tablet, 50 MG PO DAILY, (Reported) Entered as Reported by: AMINA MARIE on 03/11/20 1207 Multivitamin (Multiple Vitamins) 1 Each Tablet, 1 TAB PO BID, (Reported) Entered as Reported by: AMINA MARIE on 03/19/19 1600 Tramadol HCl (Tramadol HCl) 50 Mg Tablet, 100 MG PO Q6H PRN for PAIN-MODERATE, (Reported) Entered as Reported by: LUZ BURNS on 04/29/192111 Review of Systems Review of Systems Constitutional: No fever Eyes: No Symptoms Reported Ears, Nose, Mouth, Throat: no symptoms reported Respiratory: no symptoms reported Cardiovascular: no symptoms reported Gastrointestinal: no symptoms reported Genitourinary: no symptoms reported Musculoskeletal: no symptoms reported Skin: no symptoms reported Psychiatric/Neurological: See HPI Past Eowuwnz-Ygrehe-Thmrty Hx Immunizations Up To Date First/Initial COVID19 Vaccinat: FEBRUARY 01 2021 Second COVID19 Vaccination Kaveh: MARCH 01 2021 Third COVID19 Vaccination Date: OCT 03 2021 Seasonal Allergies Seasonal Allergies: Yes Past Medical History Surgery/Hospitalization HX: COLON CA W METS TO LIVER Surgeries: Yes (BOWEL RESECTION, SEVERAL SX AFTER GB-SEPSIS, ) Appendectomy, Section, Gallbladder, Hysterectomy Respiratory: No (NOV 2017-SEPSIS/ TRACH ON VENT) Pulmonary Embolism Currently Using CPAP: No Currently Using BIPAP: No Cardiac: Yes Deep Vein Thrombosis, Hypertension, Palpitations Neurological: Yes Headaches /Migraines 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 Sexually Transmitted Disease: No HIV/AIDS: No Genitourinary: No Gastrointestinal: Yes Chronic Constipation, Chronic Diarrhea, Polyps Musculoskeletal: Yes (HX FOOT DROP, 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) Chronic Back Pain Endocrine: Yes (REYNAUDS) HEENT: Yes (GLASSES, UPPER DENTURE) Loss of Vision: Bilateral Hearing Impairment: Denies Cancer: Yes Liver, Colon Did You Recieve Any Treatments: Yes What Type of Treatment Did You: Surgical Intervention Psychosocial: Yes Anxiety, Depression Integumentary: No Blood Disorders: No Adverse Reaction/Blood Tranf: No (HAS HAD BLOOD WITH NO REACTION) Family Medical History Colon cancer 19 MOTHER Diabetes mellitus 19 MOTHER Physical Exam Vital Signs Vital Signs - First Documented 07/16/23 07/16/23 19:20 21:00 Temp 36.7 Pulse 87 Resp 16 B/P (MAP) 190/100 (130) Pulse Ox 100 O2 Delivery Room Air FiO2 97 Capillary Refill : Height, Weight, BMI Height: 5'1.00" Weight: 119lbs. 9.0oz. 54.192103pb; 21.00 BMI Method:Stated General Appearance: WD/WN, no apparent distress HEENT: PERRL/EOMI, normal ENT inspection, pharynx normal Neck: non-tender, full range of motion, supple, normal inspection Respiratory: chest non-tender, lungs clear, normal breath sounds, no respiratory distress, no accessory muscle use Cardiovascular: regular rate, rhythm, no edema, no murmur Gastrointestinal: normal bowel sounds, non tender, soft; No distended, No guarding, No rebound Back: normal inspection, no CVA tenderness Extremities: normal range of motion, non-tender, normal inspection, no pedal edema, no calf tenderness, normal capillary refill 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, no motor/sensory deficits, alert, normal mood/affect, oriented x 3 Crainal Nerves: normal hearing, PERRL, abnormal speech Coordination/Gait: normal gait, ABN nose to finger (R), ABN nose to finger (L) Motor/Sensory: no motor deficit, no sensory deficit, no pronator drift Skin: normal color, warm/dry Stroke Onset of Symptoms Date of Onset of Symptoms: Jul 16, 2023 Time of Symptom Onset: 18:45 Onset of Symptoms: Yes NIH Stroke Scale Assessment Select: Initial Level of Consciousness: 0=Alert (0), Level of Consciousness- Questions: 0=Answers both month/age (0), LOC Commands: 0=Performs both tasks (0), Gaze: Normal (0), Visual Cruz: 0=No visual loss (0), Facial Movement (Facial Paresis): 0=Normal symmetrical mnt (0), Motor Function-Arms Right: 0=No drift (0), Motor Function-Arms Left: 0=No drift (0), Motor Function-Legs Right: 0=No drift (0), Motor Function-Legs Left: 0=No drift (0), Limb Ataxia: 2=Present in two limbs (2), Sensory: 0=Normal:no loss (0), Best Language: 2=Severe aphasia (2), Dysarthria: 0=Normal (0), Extinction & Inattention: 0=No abnormality (0), Total: 4 Stroke Thrombolytic Exclusion Age 18 or Over: Yes Acute intenal hemorrhage: No History of CVA: No Uncontrolled Coagulation Defec: No Intracranial Hemorrhage: No Severe Hypertension: No GI or Bleed: No Subarachnoid Hemorrhage: No Intracranial Neoplasm/Aneurysm: No Oral Anticoagulants: No Surgery or Trauma: No Puncture of Non-Compressible V: No Recent CPR: No Diabetic Hemorrhagic Retinopat: No Organ Biopsy: No Recent Obstetric Delivery: No Glucose: No Significant Hepatic Dysfunctio: No NIH Stoke Scale >22: No Bacterial Endocarditis: No Pericarditis: No Improving Symptoms: No Platelets: No TPA Contraindication: No Progress/Results/Core Measures Results/Orders Lab Results Laboratory Tests Test 07/16/23 19:28 Range/Units White Blood Count 6.3 4.3-11.0 10^3/uL Red Blood Count 2.90 L 3.80-5.11 10^6/uL Hemoglobin 8.8 L 11.5-16.0 g/dL Hematocrit 27 L 35-52 % Mean Corpuscular Volume 92 80-99 fL Mean Corpuscular Hemoglobin 30 25-34 pg Mean Corpuscular Hemoglobin Concent 33 32-36 g/dL Red Cell Distribution Width 16.5 H 10.0-14.5 % Platelet Count 128 L 130-400 10^3/uL Mean Platelet Volume 11.0 9.0-12.2 fL Immature Granulocyte % (Auto) 1 % Neutrophils (%) (Auto) 51 42-75 % Lymphocytes (%) (Auto) 33 12-44 % Monocytes (%) (Auto) 14 H 0-12 % Eosinophils (%) (Auto) 1 0-10 % Basophils (%) (Auto) 0 0-10 % Neutrophils # (Auto) 3.2 1.8-7.8 10^3/uL Lymphocytes # (Auto) 2.1 1.0-4.0 10^3/uL Monocytes # (Auto) 0.9 0.0-1.0 10^3/uL Eosinophils # (Auto) 0.1 0.0-0.3 10^3/uL Basophils # (Auto) 0.0 0.0-0.1 10^3/uL Immature Granulocyte # (Auto) 0.1 0.0-0.1 10^3/uL Prothrombin Time 12.4 12.2-14.7 SEC INR Comment 0.9 0.8-1.4 Activated Partial Thromboplast Time 26 24-35 SEC D-Dimer 2.14 H 0.00-0.49 UG/ML Sodium Level 136 135-145 MMOL/L Potassium Level 2.9 L 3.6-5.0 MMOL/L Chloride Level 104 98-107 MMOL/L Carbon Dioxide Level 22 21-32 MMOL/L Anion Gap 10 5-14 MMOL/L Blood Urea Nitrogen 23 H 7-18 MG/DL Creatinine 2.07 H 0.60-1.30 MG/DL Estimat Glomerular Filtration Rate 26 BUN/Creatinine Ratio 11 Glucose Level 116 H 70-105 MG/DL Calcium Level 8.3 L 8.5-10.1 MG/DL Corrected Calcium 9.1 8.5-10.1 MG/DL Total Bilirubin 0.4 0.1-1.0 MG/DL Aspartate Amino Transf (AST/SGOT) 26 5-34 U/L Alanine Aminotransferase (ALT/SGPT) 16 0-55 U/L Alkaline Phosphatase 124 40-136 U/L Troponin I < 0.30 <0.30 NG/ML Total Protein 6.0 L 6.4-8.2 GM/DL Albumin 3.0 L 3.2-4.5 GM/DL Smear Scan YES My Orders Orders - SHYANN MCINTOSH MD Ct Head Wo-R/O Stroke (07/16/23 ) Cbc With Automated Diff (07/16/23 19:24) Protime With Inr (07/16/23 19:24) Partial Thromboplastin Time (07/16/23 19:24) Comprehensive Metabolic Panel (07/16/23 19:24) Fibrin Degradation Products (07/16/23 19:24) Troponin I Fs (07/16/23 19:24) Chest 1 View Ap/Pa Only (07/16/23 19:24) Ekg Tracing (07/16/23 19:24) Ed Iv/Invasive Line Start (07/16/23 19:24) Ed Iv/Invasive Line Start (07/16/23 19:24) Vital Signs Stroke Patient Q15M (07/16/23 19:24) O2 (07/16/23 19:24) Intake & Output 06,14,22 (07/16/23 19:24) Nicardipine Iv(Pyxis Drip Kit) (Nicardip (07/16/23 19:30) Monitor-Rhythm Ecg Trace Only (07/16/23 19:24) Dysphagia Screening Tool Q10MX1 (07/16/23 19:24) Vital Signs Stroke Patient Q15M (07/16/23 19:54) Dysphagia Screening Tool Q10MX1 (07/16/23 19:54) Post Thrombolytic Adminstratio (07/16/23 19:54) Ct Angio Head/Neck (07/16/23 19:54) Tenecteplase (Tnkase) (07/16/23 20:00) Iohexol Injection (Omnipaque 350 Mg/Ml 1 (07/16/23 20:15) Received Contrast (Hold Metformin- Contr (07/16/23 20:15) Ns (Ivpb) 100 Ml (Sodium Chloride 0.9% 1 (07/16/23 20:15) Ed Admission (Communication) (07/16/23 20:30) Medications Given in ED Current Medications Medications Dose Ordered Sig/Juan Route Start Time Stop Time Status Last Admin Dose Admin Iohexol 100 ml ONCE ONCE IV 07/16/23 20:15 07/16/23 20:16 DC 07/16/23 20:57 60 ML Sodium Chloride 100 ml ONCE ONCE IV 07/16/23 20:15 07/16/23 20:16 DC 07/16/23 20:57 100 ML Tenecteplase 13.28 mg ONCE ONCE IV 07/16/23 20:00 07/16/23 20:01 DC 07/16/23 20:21 13.28 MG Vital Signs/I&O 07/16/23 07/16/23 07/16/23 07/16/23 19:20 19:48 20:21 21:00 Temp 36.7 Pulse 87 82 94 90 Resp 16 B/P (MAP) 190/100 (130) 193/82 167/65 155/59 Pulse Ox 100 O2 Delivery Room Air 07/16/23 07/16/23 21:00 21:53 Pulse 87 Resp 16 B/P (MAP) 165/73 Pulse Ox 97 O2 Delivery Room Air Room Air FiO2 97 Progress Progress Note : Progress Note 63-year-old female with above history she coming in due to difficulty speaking. Patient was hypertensive on presentation. NIH was 4 for her severe expressive aphasia and both hand slightly abnormal [id number]. Glucose was normal. She was started on a nicardipine drip. CT head on my interpretation with no obvious hemorrhagic stroke or brain mass. I contacted the stroke neurologist at [facility], Dr. Jenkins, at 19:47 and he recommended giving tenecteplase. I discussed my reservations with the patient having stage IV colon cancer. She is adamant she does not have any cancer in her brain, and it is negative for any brain masses on the CT today. He stated that the risk might be slightly higher for a bleed in her colon around her mets in her liver, but the benefits likely outweigh the risk given the significant deficit she has. I discussed all this with the patient, consented her with her present, and she was given tenecteplase. CTA head and neck then ordered to assess for LVO. I contacted the [facility] provider on-call, the patient will be admitted to the intensive care unit under inpatient status. I then contacted the ICU physician for signout. Initial ECG Impression Date: Jul 16, 2023 Initial ECG Impression Time: 19:32 Initial ECG Rate: 81 Initial ECG Rhythm: Normal Sinus Comment Narrow QRS, normal axis, incomplete right bundle branch block, no STEMI Diagnostic Imaging Diagonstic Imaging: Xray (chest), CT (head, CTA head and neck) Comments NAME: JANET GONZALEZ Leida [facility] REC#: [id number] PT STATUS: REG ER : 1960 PHYSICIAN: SHYANN MCINTOSH MD ADMIT DATE: 07/16/23/ER FS Draft Date of Exam:07/16/23 CT HEAD WO-R/O STROKE PROCEDURE: CT head wo r/o stroke. TECHNIQUE: Multiple contiguous axial images were obtained through the brain without the use of intravenous contrast. Auto Exposure Controls were utilized during the CT exam to meet ALARA standards for radiation dose reduction. INDICATION: Stroke symptoms. Sudden onset difficulty speaking. No comparison available. FINDINGS: There are multiple low-attenuation chronic infarcts evident within the basal ganglia. There is no evidence of territorial loss of barajas-white differentiation or edema. There are no findings of hemorrhage. There is no mass effect. There is no hydrocephalus. There is age-related volume loss. There is no evidence of an abnormal extra-axial collection. The basilar cisterns are patent. There are no CT findings of an identifiable hyperdense blood vessel. There is no acute calvarial abnormality. The mastoids and visualized paranasal sinuses are clear. Orbital contents are normal. IMPRESSION: 1. Age-related volume loss with multiple low density remote appearing lacunar infarcts within the basal ganglia. 2. No findings of territorial loss of barajas-white differentiation or edema to suggest acute ischemia. 3. No hemorrhage, mass effect or hydrocephalus. 4. No identifiable asymmetric hyperdense blood vessel. Dictated on workstation # [id number] Dict: 07/16/231928 Trans: 07/16/231931 Interpreted by: RALPH BELL MD Electronically signed by: [facility], [place] NAME: JANET GONZALEZ MED REC#: [id number] PT STATUS: REG ER : 1960 PHYSICIAN: SHYANN MCINTOSH MD ADMIT DATE: 07/16/23/ER FS Draft Date of Exam:07/16/23 CHEST 1 VIEW AP/PA ONLY INDICATION: Stroke. COMPARISON is made with prior chest from 11/17/2021. Heart size is normal. Left chest wall port has tip overlying the SVC right atrial junction. Lungs are clear. No infiltrates are detected. There is no effusion or pneumothorax. IMPRESSION: No acute cardiopulmonary process is detected. Dictated on workstation # [id number] Dict: 07/16/231937 Trans: 07/16/231939 [facility] Interpreted by: RAFAEL MALLORY MD Electronically signed by: NAME: JANET GONZALEZ Scripted REC#: [id number] PT STATUS: REG ER : 1960 PHYSICIAN: SHYANN MCINTOSH MD ADMIT DATE: 07/16/23/ER FS Draft Date of Exam:07/16/23 CT ANGIO HEAD/NECK PROCEDURE: CT angiography of the head and CT angiography of the neck with and without contrast. TECHNIQUE: Contiguous noncontrast images were obtained from the skull base through the vertex. After intravenous contrast administration, helical CT angiography of the neck was performed. Source data was reformatted into 3D MIP projections. Delayed post contrast acquisition was also obtained. Auto Exposure Controls were utilized during the CT exam to meet ALARA standards for radiation dose reduction. INDICATION: Sudden onset difficulty speaking. Evaluate for stroke. COMPARISON: CT of head performed earlier the same day. FINDINGS: There is no evidence of dissection or injury within the visualized portion of the aortic arch. There is no high-grade stenosis origins of vessels arising from the arch. Both the vertebral artery origins are patent. The common carotid arteries demonstrate some scattered atherosclerotic plaquing without significant stenosis. There is atherosclerotic disease present at both of the carotid bifurcations. This results in approximately 50% stenosis bilaterally by NASCET criteria. The more distal segments of the internal carotid arteries within the neck are unremarkable. There are no findings of high-grade stenosis, luminal irregularity or dissection within the cervical vertebral arteries. Intracranially, there is patent flow within the bilateral internal carotid arteries with patent flow to the level of the carotid terminus. There is normal opacification of the M1 segment of the middle cerebral arteries without identifiable M2 branch occlusion. Anterior cerebral arteries appear patent. Within the posterior circulation, the vertebral arteries are patent. There are patent posterior inferior cerebellar arteries. The basilar is patent. There is moderate apparent atherosclerotic narrowing of the distal basilar. The origins of the superior cerebral arteries are patent. The posterior cerebral arteries are both patent with predominant supply from a prominent posterior communicating arteries. No COLLECTION TEAM LEAD branch occlusion is evident. There are no findings of intracranial aneurysm formation. The dural venous sinuses are patent. The postcontrast images demonstrate no evidence of pathologic intracranial enhancement or evidence of a territorial loss of barajas-white differentiation. The remote infarct within the basal ganglia are reidentified. The soft tissues of the neck demonstrate no acute process. Lung apices appear clear. There are background degenerative features within the cervical spine without acute cervical spine abnormality. IMPRESSION: 1. No CT angiographic evidence of intracranial large vessel occlusion. 2. Approximately 50% stenosis at the carotid bifurcations within the neck. There are no findings of dissection. 3. Dural venous sinuses are patent. 4. No findings of aneurysm or vascular malformation. 5. The dural venous sinuses are patent. 6. No evidence of pathologic intracranial enhancement. Dictated on workstation # [id number] Dict: 07/16/232107 Trans: 07/16/232117 [id number] Interpreted by: RALPH BELL MD Electronically signed by: Critical Care Note Critical Care Start Time: 19:14 Stop Time: 20:36 Total Time (minutes) 42 Progress Patient was at significant risk for hemorrhage after getting tenecteplase. She was monitored very closely. A lot of time was also spent discussing the case with the patient, her , and other physicians. All time billed for critical care was separate from procedures. Departure Impression Primary Impression: Acute ischemic stroke Additional Impression: Hypokalemia Disposition: 30 STILL A PATIENT Condition: Stable Admissions Decision to Admit Reason: Admit from ER (General) Decision to Admit/Date: Jul 16, 2023 Time/Decision to Admit Time: 20:10 Transfer Method of Transfer: EMS Departure-Patient Inst. Referrals: BRETT SERRATO MD (PCP/Family) Primary Care Physician SHYANN MCINTOSH MD Jul 16, 2023 19:28
[2023-07-16] MEDS ORDERED: NS IV SCH (19:30)
[2023-07-16] MEDS ORDERED: NICARDIPINE IV SCH (19:30)
--- NOTE | 2023-07-16 19:32 | Diagnostic Imaging Report ---
PROCEDURE: CT head wo r/o stroke. TECHNIQUE: Multiple contiguous axial images were obtained through the brain without the use of intravenous contrast. Auto Exposure Controls were utilized during the CT exam to meet ALARA standards for radiation dose reduction. INDICATION: Stroke symptoms. Sudden onset difficulty speaking. No comparison available. FINDINGS: There are multiple low-attenuation chronic infarcts evident within the basal ganglia. There is no evidence of territorial loss of barajas-white differentiation or edema. There are no findings of hemorrhage. There is no mass effect. There is no hydrocephalus. There is age-related volume loss. There is no evidence of an abnormal extra-axial collection. The basilar cisterns are patent. There are no CT findings of an identifiable hyperdense blood vessel. There is no acute calvarial abnormality. The mastoids and visualized paranasal sinuses are clear. Orbital contents are normal. IMPRESSION: 1. Age-related volume loss with multiple low density remote appearing lacunar infarcts within the basal ganglia. 2. No findings of territorial loss of barajas-white differentiation or edema to suggest acute ischemia. 3. No hemorrhage, mass effect or hydrocephalus. 4. No identifiable asymmetric hyperdense blood vessel. Dictated by: Dictated on workstation # [id number]
--- NOTE | 2023-07-16 19:40 | Diagnostic Imaging Report ---
INDICATION: Stroke. COMPARISON is made with prior chest from 11/17/2021. Heart size is normal. Left chest wall port has tip overlying the SVC right atrial junction. Lungs are clear. No infiltrates are detected. There is no effusion or pneumothorax. IMPRESSION: No acute cardiopulmonary process is detected. Dictated by: Dictated on workstation # [id number]
[2023-07-16 19:47] LABS: BASOPHILS % (AUTO) 0 % (0-10); EOSINOPHILS # (AUTO) 0.1 10^3/uL (0.0-0.3); EOSINOPHILS % (AUTO) 1 % (0-10); HEMATOCRIT 27 % (35-52); HEMOGLOBIN 8.8 g/dL (11.5-16.0); LYMPHOCYTES # (AUTO) 2.1 10^3/uL (1.0-4.0); LYMPHOCYTES % (AUTO) 33 % (12-44); MEAN CORPUSCULAR HEMOGLOBIN 30 pg (25-34); MEAN CORPUSCULAR HGB CONC 33 g/dL (32-36); MEAN CORPUSCULAR VOLUME 92 fL (80-99); MONOCYTES # (AUTO) 0.9 10^3/uL (0.0-1.0); MONOCYTES % (AUTO) 14 % (0-12); NEUTROPHILS # (AUTO) 3.2 10^3/uL (1.8-7.8); NEUTROPHILS % (AUTO) 51 % (42-75); PLATELET COUNT 128 10^3/uL (130-400); WHITE BLOOD COUNT 6.3 10^3/uL (4.3-11.0)
[2023-07-16] MEDS ORDERED: TENECTEPLASE 50 MG VIAL IV ONE (20:00)
[2023-07-16 20:04] LABS: POTASSIUM 2.9 MMOL/L (3.6-5.0); SODIUM 136 MMOL/L (135-145)
[2023-07-16 20:05] LABS: ALANINE AMINOTRANSFERASE 16 U/L (0-55); ALKALINE PHOSPHATASE 124 U/L (40-136); BILIRUBIN,TOTAL 0.4 MG/DL (0.1-1.0); BUN/CREATININE RATIO 11; CALCIUM 8.3 MG/DL (8.5-10.1); CARBON DIOXIDE 22 MMOL/L (21-32); CHLORIDE 104 MMOL/L (98-107); CREATININE SERUM 2.07 MG/DL (0.60-1.30); GFR ESTIMATED 26; GLUCOSE 116 MG/DL (70-105)
[2023-07-16 20:07] LABS: SMEAR SCAN COMMENT YES
[2023-07-16 20:08] LABS: FIBRIN DEGRADATION PRODUCTS 2.14 UG/ML (0.00-0.49); INR 0.9 (0.8-1.4); PROTHROMBIN TIME PATIENT 12.4 SEC (12.2-14.7)
[2023-07-16] MEDS ORDERED: NS 100 ML (IVPB) BAG IV ONE (20:15)
[2023-07-16] MEDS ORDERED: HOLD METFORMIN - RECEIVED CONTRAST 20 ML VIAL IV SCH (20:15)
[2023-07-16] MEDS ORDERED: IOHEXOL 350 MG/ML 100 ML (OMNIPAQUE 350) VIAL IV ONE (20:15)
--- NOTE | 2023-07-16 21:18 | Diagnostic Imaging Report ---
PROCEDURE: CT angiography of the head and CT angiography of the neck with and without contrast. TECHNIQUE: Contiguous noncontrast images were obtained from the skull base through the vertex. After intravenous contrast administration, helical CT angiography of the neck was performed. Source data was reformatted into 3D MIP projections. Delayed post contrast acquisition was also obtained. Auto Exposure Controls were utilized during the CT exam to meet ALARA standards for radiation dose reduction. INDICATION: Sudden onset difficulty speaking. Evaluate for stroke. COMPARISON: CT of head performed earlier the same day. FINDINGS: There is no evidence of dissection or injury within the visualized portion of the aortic arch. There is no high-grade stenosis origins of vessels arising from the arch. Both the vertebral artery origins are patent. The common carotid arteries demonstrate some scattered atherosclerotic plaquing without significant stenosis. There is atherosclerotic disease present at both of the carotid bifurcations. This results in approximately 50% stenosis bilaterally by NASCET criteria. The more distal segments of the internal carotid arteries within the neck are unremarkable. There are no findings of high-grade stenosis, luminal irregularity or dissection within the cervical vertebral arteries. Intracranially, there is patent flow within the bilateral internal carotid arteries with patent flow to the level of the carotid terminus. There is normal opacification of the M1 segment of the middle cerebral arteries without identifiable M2 branch occlusion. Anterior cerebral arteries appear patent. Within the posterior circulation, the vertebral arteries are patent. There are patent posterior inferior cerebellar arteries. The basilar is patent. There is moderate apparent atherosclerotic narrowing of the distal basilar. The origins of the superior cerebral arteries are patent. The posterior cerebral arteries are both patent with predominant supply from a prominent posterior communicating arteries. No CASCADE OPERATOR branch occlusion is evident. There are no findings of intracranial aneurysm formation. The dural venous sinuses are patent. The postcontrast images demonstrate no evidence of pathologic intracranial enhancement or evidence of a territorial loss of barajas-white differentiation. The remote infarct within the basal ganglia are reidentified. The soft tissues of the neck demonstrate no acute process. Lung apices appear clear. There are background degenerative features within the cervical spine without acute cervical spine abnormality. IMPRESSION: 1. No CT angiographic evidence of intracranial large vessel occlusion. 2. Approximately 50% stenosis at the carotid bifurcations within the neck. There are no findings of dissection. 3. Dural venous sinuses are patent. 4. No findings of aneurysm or vascular malformation. 5. The dural venous sinuses are patent. 6. No evidence of pathologic intracranial enhancement. Dictated by: Dictated on workstation # [id number]
[2023-07-16] MEDS: niCARdipine INJECTION 50 MG in NS (IVPB) 250 ML 230 ML IV SCH (22:45)
[2023-07-16] MEDS ORDERED: NS IV 500 ML 500 ML IV PRN (22:45)
[2023-07-16] MEDS: POTASSIUM CHLORIDE 20 MEQ TABLET PO SCH (22:46)
[2023-07-16] MEDS: POTASSIUM CL 10MEQ/50ML IVPB 50 ML IV SCH ×3 (22:46→23:46)
[2023-07-16] MEDS ORDERED: POTASSIUM CL 10MEQ/50ML IVPB 400 ML IV ONE (22:50)
--- NOTE | 2023-07-16 23:01 | Tele-ICU Progress Note ---
Subjective Date Seen by a Provider: Jul 16, 2023 Subjective/Events-last exam see a/p Review of Systems General: Other Sepsis Event Evaluation Sepsis Stage: Ruled Out Height, Weight, BMI Height: 5'1.00" Weight: 119lbs. 9.0oz. 54.156075hs; 20.00 BMI Method:Stated Focused Exam Sepsis Stage: Ruled Out Exam Exam Patient acknowledged, consented, and participated in this virtual visit which was conducted using real time audio/video Vital Signs Date Time Temp Pulse Resp B/P (MAP) Pulse Ox O2 Delivery O2 Flow Rate FiO2 07/16/23 21:53 87 16 165/73 97 Room Air 07/16/23 21:00 Room Air 97 07/16/23 21:00 90 155/59 07/16/23 20:21 94 167/65 07/16/23 19:48 82 193/82 07/16/23 19:20 36.7 87 16 190/100 (130) 100 Room Air Height & Weight Height: 5'1.00" Weight: 119lbs. 9.0oz. 54.939111pn; 20.00 BMI Method:Stated General Appearance: No Apparent Distress Capillary Refill: Less Than 3 Seconds Gastrointestinal: normal bowel sounds, non tender, soft; No distended, No guarding, No rebound Results Lab Laboratory Tests 07/16/23 19:28 Assessment/Plan Assessment/Plan cc weakness hpi History taken from ER notes. I am remotely monitering patient from [place]. 63 yo emale with colon ca, presents with difficulty speaking at 645pm. Expressive aphasia and bp in 200s. Patient given TPA in ed, and admitted to icu for further workup. pmhx: met colon cancer, htn, anemia, pain pshx bowel resection fam hx non cont allergies: pcn, doxy, floruoquinolines, statins ros as above social hx: unk Pe: bp 190/100 hr 87 on room air, sats 100 rr 16 afebrile exam deffered, remote location Labs: hgb 8.8 inr 0.9 ddimer 2 k 2.9 bun/creat 27/12 imaging: CT IMPRESSION: 1. Age-related volume loss with multiple low density remote appearing lacunar infarcts within the basal ganglia. 2. No findings of territorial loss of barajas-white differentiation or edema to suggest acute ischemia. 3. No hemorrhage, mass effect or hydrocephalus. 4. No identifiable asymmetric hyperdense blood vessel. cta: IMPRESSION: 1. No CT angiographic evidence of intracranial large vessel occlusion. 2. Approximately 50% stenosis at the carotid bifurcations within the neck. There are no findings of dissection. 3. Dural venous sinuses are patent. 4. No findings of aneurysm or vascular malformation. 5. The dural venous sinuses are patent. 6. No evidence of pathologic intracranial enhancement. 1. Acute ischemic CVA NIH 4 at presentation TPA given in ED CTA head/neck ordered admit to icu for neuro checks post tpa protocol npo swallow eval pt/ot neuro consult statin anticoag when able after 24 hours further imaging per neuro recs - consider repeat ct scan after 24 hours, or any change in neuro exam 2. Uncontrolled htn bp goal 180/105 on cardene now unable to video in, camera not loading further orders per nurse requests primary for admit orders ct 15m Critical Care: Critically Ill Patient SARAH SILVERIO DO Jul 16, 2023 23:01
[2023-07-16] MEDS: NS IV 1000 ML 1,000 ML IV SCH (23:04)
[2023-07-17] MEDS: POTASSIUM CL 10MEQ/50ML IVPB 50 ML IV SCH ×8 (00:26→06:37)
[2023-07-17 05:08] LABS: BASOPHILS % (AUTO) 0 % (0-10); HEMOGLOBIN 7.2 g/dL (11.5-16.0); MEAN CORPUSCULAR VOLUME 93 fL (80-99)
[2023-07-17 05:09] LABS: EOSINOPHILS # (AUTO) 0.1 10^3/uL (0.0-0.3); EOSINOPHILS % (AUTO) 1 % (0-10); HEMATOCRIT 22 % (35-52); LYMPHOCYTES # (AUTO) 1.5 10^3/uL (1.0-4.0); LYMPHOCYTES % (AUTO) 29 % (12-44); MEAN CORPUSCULAR HEMOGLOBIN 31 pg (25-34); MEAN CORPUSCULAR HGB CONC 33 g/dL (32-36); MEAN PLATELET VOLUME 12.1 fL (9.0-12.2); MONOCYTES # (AUTO) 0.7 10^3/uL (0.0-1.0); MONOCYTES % (AUTO) 14 % (0-12); NEUTROPHILS # (AUTO) 2.8 10^3/uL (1.8-7.8); NEUTROPHILS % (AUTO) 54 % (42-75); PLATELET COUNT 101 10^3/uL (130-400); WHITE BLOOD COUNT 5.2 10^3/uL (4.3-11.0)
[2023-07-17 05:16] LABS: ALBUMIN 2.1 GM/DL (3.2-4.5); POTASSIUM 3.8 MMOL/L (3.6-5.0)
[2023-07-17 05:17] LABS: CALCIUM 6.2 MG/DL (8.5-10.1)
[2023-07-17 05:19] LABS: TOTAL PROTEIN 4.3 GM/DL (6.4-8.2)
[2023-07-17 05:20] LABS: BILIRUBIN,TOTAL 0.4 MG/DL (0.1-1.0); SMEAR SCAN COMMENT YES
[2023-07-17 05:22] LABS: CREATININE SERUM 1.31 MG/DL (0.60-1.30)
[2023-07-17] MEDS: MAGNESIUM 1 GM/100 ML IVPB 100 ML IV SCH ×6 (05:37→14:22)
[2023-07-17] MEDS ORDERED: MAGNESIUM 1 GM/100 ML IV ONE (06:35)
[2023-07-17] MEDS: niCARdipine INJECTION 50 MG in NS (IVPB) 250 ML 230 ML IV SCH ×2 (07:00→12:28)
--- NOTE | 2023-07-17 10:11 | Tele-ICU Progress Note ---
Subjective Date Seen by a Provider: Jul 17, 2023 Time Seen by a Provider: 10:11 Subjective/Events-last exam (Tele-ICU Physician , Progress Note ) Service provided via interactive audio and video telecommunications E-CARE system to a patient admitted to ICU bed in [facility]. Patient is seen today due to persistent need of ICU care Available chart/ vitals / labs / Images reviewed Video assessment done using teleICU camera, rest of exam as per RN Discussed with RN Events overnight : Afebrile hemodynamically stable Respiratory - ra I/O = + Drips: cardizem Pressors- no Hospital course: 63 yo emale with colon ca, presents with difficulty speaking at 645pm. Expressive aphasia and bp in 200s. Patient given TPA in ed, and admitted to icu for further workup. A/P 1. Acute ischemic CVA NIH 4 at presentation TPA given in ED CTA head/neck done - neuro checks -post tpa protocol swallow eval anticoag when able after 24 hours MRI today 2. Uncontrolled htn bp goal 180/105 on cardene now Anemia - no acute bleeding , monitor Thrombocytopenia - monitoe Colon ca with liver mets Lines : subclavian Gro[place] , (Central Line Necessity Reviewed) Zavala: OG: Nutrition: po Analgesia: Anxiety/ delirium VTE Prophylaxis: scd Stress Ulcer Prophylaxis:na Plans in collaboration with bedside consultants and IM MDs. Discussed with RN to reach out if any questions or concerns Case and care daily discussed on multidisciplinary rounds ( RN, PharmD, Music Library Assistant , Respiratory Therapy, fiber worker ) A total of 10 minutes of critical care time was devoted to this patient today, required to treat and/or prevent further deterioration of critical care condition ( as above ) . I am remotely monitoring this patient from another state. I am unable to do the bedside exam, and history/physical and pertinent information is taken from other notes in the computer and bedside staff. Sepsis Event Evaluation Height, Weight, BMI Height: 5'1.00" Weight: 119lbs. 9.0oz. 54.054985ie; 19.43 BMI Method:Stated Exam Exam Patient acknowledged, consented, and participated in this virtual visit which was conducted using real time audio/video Vital Signs Date Time Temp Pulse Resp B/P (MAP) Pulse Ox O2 Delivery O2 Flow Rate FiO2 07/17/23 09:00 84 17 176/90 (118) 99 Room Air 07/17/23 08:02 98 Room Air 07/17/23 08:00 86 16 168/90 (116) 98 Room Air 07/17/23 07:22 84 07/17/23 07:00 85 12 152/82 (105) 98 Room Air 07/17/23 06:00 79 15 150/81 (104) 98 Room Air 07/17/23 05:00 85 11 140/69 (92) 98 Room Air 07/17/23 04:00 98 Room Air 97 07/17/23 04:00 36.6 07/17/23 04:00 83 23 148/79 (102) 98 Room Air 07/17/23 03:30 86 31 146/79 (101) 98 Room Air 07/17/23 03:00 88 18 161/80 (107) 97 Room Air 07/17/23 02:42 188/92 07/17/23 02:15 86 14 183/90 (121) 100 Room Air 07/17/23 02:00 86 17 177/101 (126) 99 Room Air 07/17/23 01:30 83 11 169/88 (115) 98 Room Air 07/17/23 01:00 86 152/118 (129) 99 Room Air 07/17/23 01:00 86 07/17/23 00:00 36.3 07/17/23 00:00 84 20 99 Room Air 07/16/23 23:45 85 17 153/76 (109) 98 Room Air 07/16/23 23:30 82 36 155/146 (151) 98 Room Air 07/16/23 23:15 87 15 140/71 (92) 98 Room Air 07/16/23 23:00 88 17 137/105 (114) 100 Room Air 07/16/23 22:45 89 9 148/111 (125) 98 Room Air 07/16/23 22:38 93 07/16/23 22:33 93 141/89 (108) 100 Room Air 07/16/23 22:30 Room Air 07/16/23 22:30 36.6 Room Air 07/16/23 21:53 87 16 165/73 97 Room Air 07/16/23 21:00 Room Air 97 07/16/23 21:00 90 155/59 07/16/23 20:21 94 167/65 07/16/23 19:48 82 193/82 07/16/23 19:20 36.7 87 16 190/100 (130) 100 Room Air I & O 07/17/23 07:00 Intake Total 450 ml Output Total 600 ml Balance -150 ml Height & Weight Height: 5'1.00" Weight: 119lbs. 9.0oz. 54.817075ir; 19.43 BMI Method:Stated General Appearance: No Apparent Distress Capillary Refill: Less Than 3 Seconds Gastrointestinal: normal bowel sounds, non tender, soft; No distended, No guarding, No rebound Results Lab Laboratory Tests 07/16/23 19:28 07/17/23 04:55 Assessment/Plan Assessment/Plan 1 PRADEEP LATIF MD Jul 17, 2023 10:11
[2023-07-17] MEDS ORDERED: FERR-84 PO (11:36)
[2023-07-17] MEDS ORDERED: MV-M-6 PO (11:36)
[2023-07-17] MEDS ORDERED: AMLO-251 PO (11:36)
[2023-07-17] MEDS ORDERED: LOSA100T58 PO (11:36)
[2023-07-17] MEDS ORDERED: FLUO40CA PO (11:36)
[2023-07-17] MEDS ORDERED: TRAM50TA3 PO (11:36)
[2023-07-17] MEDS ORDERED: HYDR-700 PO (11:36)
[2023-07-17] MEDS ORDERED: ASPI-1238 PO (11:36)
[2023-07-17] MEDS ORDERED: PANT40TA52 PO (11:36)
[2023-07-17] MEDS ORDERED: FLUO20CA48 PO (11:36)
[2023-07-17] MEDS ORDERED: ONDA-106 PO (11:36)
[2023-07-17] MEDS ORDERED: ACYC400T21 PO (11:36)
[2023-07-17] MEDS ORDERED: LOPE-175 PO (11:36)
--- NOTE | 2023-07-17 11:37 | Diagnostic Imaging Report ---
CLINICAL INDICATION: Patient with weakness and trouble with words. Patient was given TNK. Patient has history of colon cancer with metastases. EXAM: MRI of the brain performed without IV contrast. Sequences include axial DWI, ADC map, axial T1, axial T2, axial FLAIR, and axial gradient echo. COMPARISON: CT angiogram of the head/neck dated 07/16/2023. Head CT without contrast dated 07/16/2023. FINDINGS: There is a small amount of curvilinear diffusion restriction involving the cortical region of the left parietal lobe. There is increased T2 signal in the region. There is no evidence of intraparenchymal hemorrhage. There is no brain herniation or midline shift. There is brain parenchymal volume loss. There are diffuse focal, patchy, and confluent areas of high T2 signal white matter changes involving both cerebral hemispheres in the periventricular regions and mari, likely related to chronic small vessel ischemic disease and leukoaraiosis. There are small chronic infarcts involving the bilateral frontal lobe davis radiata regions. There is no hydrocephalus. Basal cisterns are unremarkable. The visualized [place] vascular structures are unremarkable. The extracranial soft tissue, skull, and orbits are unremarkable. There is minimal ethmoid sinus mucosal thickening. There is minimal fluid within the right mastoid air cells. IMPRESSION: 1: There is a small area of abnormal signal involving the cortical region of the left parietal lobe region concerning for acute cortical infarct. There is no intraparenchymal hemorrhage or brain herniation. 2: There is chronic small vessel ischemic disease and leukoaraiosis. Dictated by: Dictated on workstation # [id number]
--- NOTE | 2023-07-17 12:48 | ST Dysphagia Evaluation ---
Speech Evaluation-General Medical Diagnosis Stroke-Like Symptoms Onset Date: Jul 16, 2023 Therapy Diagnosis Therapy Diagnosis: Intact Oropharyngeal Swallow Function Precautions Precautions: Fall, Pressure Ulcer, Aspiration Precautions/Isolations: Aspiration, Fall Prevention, Standard Precautions, Pressure Ulcer Referral Referring Physician: Dr. Ying Reason for Referral: Evaluation/Treatment Medical History Pertinent Medical History: HTN Colon cancer, bowel resection. Reviewed History: Yes Speech PLF/Current-Dysphagia Cognitive Status Patient Orientation: Person, Place, Time, Situation Oral Motor Skills Dentition: Natural Current Food Consistancy: Clear Liquids Ability to Follow Directions: Good Oral Expression Ability: No Impairment Voice Voice Phonatory-Based Quality: Normal Voice Pitch: Normal Voice Loudness: Normal Face Facial Symmetry: Symmetrical Oral-Facial Assessment Oral-Facial Dentition: Normal Labial Seal Description: Normal Smile: Normal Lingual Protrusion: Normal Lingual ROM: Normal Lingual Strength: Normal Volitional Dry Swallow: Yes Voluntary Cough: Yes Can Clear Throat Volitionally: Yes Productive Cough: Yes Productive Throat Clear: Yes Dysphagia Evaluation Consistencies Presented: Regular, Thin Liquid, Pureed The patient does not display any oral impairments to the swallow function. The patient does not display any pharyngeal impairments to the swallow function. Overt s/s of suspected aspiration were not displayed with thin liquids, puree, or solid consistencies presented. Dietary Recommendations: Regular Liquid Recommendations: Thin Recommendations: - Regular consistency diet with thin liquids, as tolerated. - Fully upright and alert for P.O. intake. - Small, single bites and sips. - Monitor for s/s of suspected aspiration with P.O. intake. If demonstrated, please contact speech pathology. Speech pathology discussed the recommendations and safe swallowing precautions with the patient and provided the updated diet consistency to the RN. The patient verbalized comprehension of the material and denied additional questions at this time. Dysphagia Evaluation Summary The patient displayed an intact oropharyngeal swallow function. Speech-Plan Treatment Plan Speech Therapy Treatment Plan: Discontinue ST Treatment Duration: Jul 17, 2023 Frequency: 1 time per week Estimated Hrs Per Day: .25 hour per day Rehab Potential: Good Pt/Family Agrees to Plan: Yes Safety Risks/Education Teaching Recipient: Patient Teaching Methods: Discussion Response to Teaching: Verbalize Understanding Education Topics Provided: Results, Recommendations, Plan of Care, Safe Swallowing Precautions Time Speech Therapy Time In: 09:15 Speech Therapy Time Out: 09:41 DATE: Jul 17, 2023 Total Billed Time: 26 Billed Treatment Time 1, DYSEVS, DYST ALISON,AMINA ST Jul 17, 2023 12:48
--- NOTE | 2023-07-17 14:24 | Occ Therapy Progress Note ---
Therapy Progress Note THERAPY ORDER RECEIVED, DISCUSSION W/ IDT MEMBERS, TPA ADMINISTERED LESS THAN 24 HOURS AGO. THERAPY TO EVALUATE 07/18/23 TEODORO MEJIA OT Jul 17, 2023 14:24
--- NOTE | 2023-07-17 14:58 | History & Physical ---
DIEGO MARIA 07/17/23 1458: HPI History of Present Illness: Patient presented to ED last night via EMS services. She said she was sitting at her home watching TV yesterday and she suddenly could not talk. In addition to aphasia she was unable to use her hands due to weakness. She said she was able to walk at this time. Her called 911 for her. NIH scale was 4 upon admission to ED. Patient denies any other symptoms during this event. This morning she denied headache, vision changes, chest pain, shortness of breath, abdominal pain, dysuria, aphasia, dysphagia, weakness, or sensory loss. Endorses constipation. She denies anything like this happening in the past and does not have a history of any WI's, afib, or any other heart condition. Brief ED Course: Patient had CT head in ED showing no evidence of acute ischemia and no hemorrhage. ED doctor contacted neurology and subsequently decided to give tenecteplase due to high suspicion for acute ischemic stroke. CTA head/neck showed no evidence of large vessel occlusion. There was 50% stenosis of carotid bifurcations. EKG upon admission was normal. D-dimer was increased at 2.14. She was hypokalemic at 2.9 and had hypomagnesemia at 1. In addition, she had elevate d Cr level of 2.07 with subsequent reduction to 1.31. She had a systolic BP above 200 upon admission and was started on IV nicardipine drip. Source: patient Exam Limitations: no limitations Date seen by provider: Jul 17, 2023 Time Seen by Provider: 10:15 Attending Physician Jose Villeda MD PCP Admitting Physician: Radha Vigil MD Attending Physician: Radha Vigil MD Consult Date of Admission Jul 16, 2023 at 22:27 Home Medications Home Medications Reviewed patient Home Medication Reconciliation performed by pharmacy medication reconciliations mortuary technician and/or nursing. Patients Allergies have been reviewed. Allergies Coded Allergies: Penicillins (Verified Allergy, Mild, YEAST INFECTION, 03/11/20) doxycycline (Verified Allergy, Unknown, 03/11/20) levofloxacin (Verified Allergy, Unknown, 03/11/20) lovastatin (Verified Allergy, Unknown, 03/11/20) [id number] Hx Patient Social History Marrital Status: Smoking Status: Former Smoker (Approximately 80 pack year history) 2nd Hand Smoke Exposure: No Recent Hopitalizations: No Alcohol Use?: No Immunizations Up To Date Influenza Vaccine Up-to-Date: No; Not Current First/Initial COVID19 Vaccinat: 2020 Second COVID19 Vaccination Kaveh: 2020 Third COVID19 Vaccination Date: OCT 03 2021 COVID19 Vaccine Manager Zone: [facility] Past Medical History PMHx: Depression Anxiety HTN, HLD Fibromyalgia Pulmonary embolism at age 36 Metastatic colon cancer SurgHx: Cholecystectomy Colectomy Partial hysterectomy Appendectomy Family Medical History Family History: Colon cancer 19 MOTHER Diabetes mellitus 19 MOTHER Review of Systems ([facility]) Constitutional: see HPI EENTM: see HPI Respiratory: see HPI Cardiovascular: see HPI Gastrointestinal: see HPI Genitourinary: see HPI : No Musculoskeletal: no symptoms reported Skin: no symptoms reported Psychiatric/Neurological: No Symptoms Reported Reviewed Test Results Reviewed Test Results Lab Laboratory Tests 07/16/23 19:28: White Blood Count 6.3, Red Blood Count 2.90L, Hemoglobin 8.8L, Hematocrit 27L, Mean Corpuscular Volume 92, Mean Corpuscular Hemoglobin 30, Mean Corpuscular Hemoglobin Concent 33, Red Cell Distribution Width 16.5H, Platelet Count 128L, Mean Platelet Volume 11.0, Immature Granulocyte % (Auto) 1, Neutrophils (%) (Auto) 51, Lymphocytes (%) (Auto) 33, Monocytes (%) (Auto) 14H, Eosinophils (%) (Auto) 1, Basophils (%) (Auto) 0, Neutrophils # (Auto) 3.2, Lymphocytes # (Auto) 2.1, Monocytes # (Auto) 0.9, Eosinophils # (Auto) 0.1, Basophils # (Auto) 0.0, Immature Granulocyte # (Auto) 0.1, Prothrombin Time 12.4, INR Comment 0.9, Activated Partial Thromboplast Time 26, D-Dimer 2.14H, Sodium Level 136, Potassium Level 2.9L, Chloride Level 104, Carbon Dioxide Level 22, Anion Gap 10, Blood Urea Nitrogen 23H, Creatinine 2.07H, Estimat Glomerular Filtration Rate 26, BUN/Creatinine Ratio 11, Glucose Level 116H, Calcium Level 8.3L, Corrected Calcium 9.1, Total Bilirubin 0.4, Aspartate Amino Transf (AST/SGOT) 26, Alanine Aminotransferase (ALT/SGPT) 16, Alkaline Phosphatase 124, Troponin I < 0.30, Total Protein 6.0L, Albumin 3.0L, Smear Scan YES 07/17/23 04:55: White Blood Count 5.2, Red Blood Count 2.36L, Hemoglobin 7.2L, Hematocrit 22L, Mean Corpuscular Volume 93, Mean Corpuscular Hemoglobin 31, Mean Corpuscular Hemoglobin Concent 33, Red Cell Distribution Width 16.6H, Platelet Count 101L, Mean Platelet Volume 12.1, Immature Granulocyte % (Auto) 1, Neutrophils (%) (Auto) 54, Lymphocytes (%) (Auto) 29, Monocytes (%) (Auto) 14H, Eosinophils (%) (Auto) 1, Basophils (%) (Auto) 0, Neutrophils # (Auto) 2.8, Lymphocytes # (Auto) 1.5, Monocytes # (Auto) 0.7, Eosinophils # (Auto) 0.1, Basophils # (Auto) 0.0, Immature Granulocyte # (Auto) 0.1, Sodium Level 141, Potassium Level 3.8, Chloride Level 120#H, Carbon Dioxide Level 15L, Anion Gap 6, Blood Urea Nitrogen 16, Creatinine 1.31H, Estimat Glomerular Filtration Rate 46, BUN/Creatinine Ratio 12, Glucose Level 70, Calcium Level 6.2L, Corrected Calcium 7.7L, Total Bilirubin 0.4, Aspartate Amino Transf (AST/SGOT) 23, Alanine Aminotransferase (ALT/SGPT) 15, Alkaline Phosphatase 80, Total Protein 4.3L, Albumin 2.1L, Smear Scan YES, Percent Immature Platelet Fraction 4.4, Phosphorus Level 2.0L, Magnesium Level 1.0*L, Triglycerides Level 88, Cholesterol Level 155, LDL Cholesterol Direct 105, VLDL Cholesterol 18, HDL Cholesterol 41 Radiology Chest X-Ray: No acute cardiopulmonary process is detected. Head CT: 1. Age-related volume loss with multiple low density remote appearing lacunar infarcts within the basal ganglia. 2. No findings of territorial loss of barajas-white differentiation or edema to suggest acute ischemia. 3. No hemorrhage, mass effect or hydrocephalus. 4. No identifiable asymmetric hyperdense blood vessel. CTA Head and Neck: 1. No CT angiographic evidence of intracranial large vessel occlusion. 2. Approximately 50% stenosis at the carotid bifurcations within the neck. There are no findings of dissection. 3. Dural venous sinuses are patent. 4. No findings of aneurysm or vascular malformation. 5. The dural venous sinuses are patent. 6. No evidence of pathologic intracranial enhancement. MRI Brain: 1: There is a small area of abnormal signal involving the cortical region of the left parietal lobe region concerning for acute cortical infarct. There is no intraparenchymal hemorrhage or brain herniation. 2: There is chronic small vessel ischemic disease and leukoaraiosis. Physical Exam-([facility]) Physical Exam Vital Signs VS - Last 72 Hours, by Label 07/16/23 07/16/23 07/16/23 07/16/23 19:20 19:48 20:21 21:00 Temp 36.7 Pulse 87 82 94 90 Resp 16 B/P (MAP) 190/100 (130) 193/82 167/65 155/59 Pulse Ox 100 O2 Delivery Room Air 07/16/23 07/16/23 07/16/23 07/16/23 21:00 21:53 22:30 22:30 Temp 36.6 Pulse 87 Resp 16 B/P (MAP) 165/73 Pulse Ox 97 O2 Delivery Room Air Room Air Room Air Room Air FiO2 97 07/16/23 07/16/23 07/16/23 07/16/23 22:33 22:38 22:45 23:00 Pulse 93 93 89 88 Resp 9 17 B/P (MAP) 141/89 (108) 148/111 (125) 137/105 (114) Pulse Ox 100 98 100 O2 Delivery Room Air Room Air Room Air 07/16/23 07/16/23 07/16/23 07/17/23 23:15 23:30 23:45 00:00 Pulse 87 82 85 84 Resp 15 36 17 20 B/P (MAP) 140/71 (92) 155/146 (151) 153/76 (109) Pulse Ox 98 98 98 99 O2 Delivery Room Air Room Air Room Air Room Air 07/17/23 07/17/23 07/17/23 07/17/23 00:00 01:00 01:00 01:30 Temp 36.3 Pulse 86 86 83 Resp 11 B/P (MAP) 152/118 (129) 169/88 (115) Pulse Ox 99 98 O2 Delivery Room Air Room Air 07/17/23 07/17/23 07/17/23 07/17/23 02:00 02:15 02:42 03:00 Pulse 86 86 88 Resp 17 14 18 B/P (MAP) 177/101 (126) 183/90 (121) 188/92 161/80 (107) Pulse Ox 99 100 97 O2 Delivery Room Air Room Air Room Air 07/17/23 07/17/23 07/17/23 07/17/23 03:30 04:00 04:00 04:00 Temp 36.6 Pulse 86 83 Resp 31 23 B/P (MAP) 146/79 (101) 148/79 (102) Pulse Ox 98 98 98 O2 Delivery Room Air Room Air Room Air FiO2 97 07/17/23 07/17/23 07/17/23 07/17/23 05:00 06:00 07:00 07:00 Pulse 85 79 85 Resp 11 15 12 B/P (MAP) 140/69 (92) 150/81 (104) 178/91 152/82 (105) Pulse Ox 98 98 98 O2 Delivery Room Air Room Air Room Air 07/17/23 07/17/23 07/17/23 07/17/23 07:22 07:30 08:00 08:02 Pulse 84 86 Resp 16 B/P (MAP) 162/76 168/90 (116) Pulse Ox 98 98 O2 Delivery Room Air Room Air 07/17/23 07/17/23 07/17/23 07/17/23 09:00 10:00 11:00 12:00 Pulse 84 89 86 Resp 17 8 20 B/P (MAP) 176/90 (118) 178/91 (120) 197/103 (134) Pulse Ox 99 99 100 100 O2 Delivery Room Air Room Air Room Air Room Air 07/17/23 07/17/23 07/17/23 07/17/23 12:00 12:09 12:28 12:39 Temp 36.6 Pulse 80 85 Resp 15 B/P (MAP) 170/78 (108) 178/91 Pulse Ox 98 O2 Delivery Room Air 07/17/23 07/17/23 07/17/23 07/17/23 13:00 14:00 15:39 15:48 Temp 36.6 Pulse 90 86 Resp 14 19 B/P (MAP) 162/76 (104) 153/75 (101) Pulse Ox 100 99 100 O2 Delivery Room Air Room Air Room Air Capillary Refill : Less Than 3 Seconds General Appearance: WD/WN, no apparent distress Respiratory: chest non-tender, lungs clear, normal breath sounds, no respiratory distress, no accessory muscle use Cardiovascular: regular rate, rhythm, no edema, no gallop, no JVD, no murmur Gastrointestinal: normal bowel sounds, tenderness (Periumbilical tenderness due to colon cancer) Extremities: normal range of motion, non-tender, normal inspection, no pedal edema, no calf tenderness, normal capillary refill Neurologic/Psychiatric: 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 ED doctor ordered CT head which showed no evidence of hemorrhagic stroke. [facility] neurology was consulted and the patient was given tenecteplase in the ED. - CTA head and neck showed approximately 50% stenosis at the carotid bifurcations within the neck. There are no findings of dissection. - MRI brain showed a small area of abnormal signal involving the cortical region of the left parietal lobe region concerning for acute cortical infarct. There is no intraparenchymal hemorrhage or brain herniation. There is chronic small vessel ischemic disease and leukoaraiosis. - Normal EKG on admission - Normal lipid panel - D-dimer elevated at 2.14 on admission - Patient was cleared for swallowing by occupational therapy - Contiue post TPA protocol - Order echocardiogram - Start aspirin and plavix at 24 hour valerie post-TPA - Allow for permissive HTN no greater than 180/105 - Patient has had an allergy to lovastatin in the past. Consider starting rosuvastatin - Consider consulting cardiology for possible 30 day heart monitor to determine if patient has paroxysmal afib or any other heart events that may have caused clot - Continue hourly neuro checks (2) Hypertension Status: Chronic Assessment & Plan: - Patients blood pressure was greater that 200 upon admission to ED. She was started on a nicardipine drip at this time. Nicardipine drip subsequently decreased in ICU because of lower blood pressures. - Patient managed BP at home with amlodipine and losartan. - Consider permissive HTN with home BP medications and discontinue nicardipine drip. - BP goal no greater than 180/105 Qualifiers: Qualified Codes: I10 - Essential (primary) hypertension (3) Hypokalemia Status: Acute Assessment & Plan: - Potassium level of upon admission was 2.9. - Potassium was replaced with subsequent potassium level being 3.8 - Hypokalemia most likely secondary to diarrhea caused by chemotherapeutic agent. Magnesium level of 1 upon admission may be contributing to low potassium levels. - Magnesium replaced. Continue to monitor - Continue to monitor with AM CMP (4) Hypomagnesemia Status: Acute Assessment & Plan: - Magnesium level of 1 upon admission - Magesium is being replaced - Order AM magnesium level (5) Elevated serum creatinine Status: Acute Assessment & Plan: - Patient had Cr level of 2.07 on admission with subsequent reduction to 1.31 - It is unsure if this is her baseline or if she has an acute kidney injury - Continue IV fluids - Trend AM CMP (6) Metastatic colon cancer to liver Status: Chronic Assessment & Plan: - Patient follows with Dr. 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 - Continue POULTRY HATCHERY LABORER hyroxyzine 25mg Qualifiers: Qualified Codes: F32.89 - Other specified depressive episodes (8) Anxiety Status: Chronic Assessment & Plan: - Continue POULTRY HATCHERY LABORER Prozac 60mg - Continue POULTRY HATCHERY LABORER hyroxyzine 25mg Clinical Quality Measures Stroke: Date of last known well: Jul 16, 2023 Time of last known well: 18:45 RADHA VIGIL MD 07/17/23 1815: Home Medications Allergies Coded Allergies: Penicillins (Verified Allergy, Mild, YEAST INFECTION, 03/11/20) doxycycline (Verified Allergy, Unknown, 03/11/20) levofloxacin (Verified Allergy, Unknown, 03/11/20) lovastatin (Verified Allergy, Unknown, 03/11/20) QUT-[id number]-Qaxopt Hx Family Medical History Family History: Colon cancer 19 MOTHER Diabetes mellitus 19 MOTHER Physical Exam-([facility]) Physical Exam General Appearance: WD/WN, no apparent distress Eyes: Bilateral Eye PERRL, Bilateral Eye EOMI Respiratory: lungs clear, normal breath sounds Cardiovascular: regular rate, rhythm, no edema, no murmur Gastrointestinal: normal bowel sounds, soft, tenderness (mild generalized ttp she relates to her history of colon ca and surgeries) Extremities: no pedal edema 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 See my physical exam documentation for my findings. I discussed the case with the Medical Student, and concur with the Medical Student documentation of history, physical exam and treatment plan unless otherwise noted. DIEGO MARIA Jul 17, 2023 14:58 RADHA VIGIL MD Jul 17, 2023 18:15
--- NOTE | 2023-07-17 15:48 | Physical Therapy Progress Note ---
Therapy Progress Note THERAPY ORDER RECEIVED, DISCUSSION W/ IDT MEMBERS, TPA ADMINISTERED LESS THAN 24 HOURS AGO. THERAPY TO EVALUATE 07/18/23 GENARO PARIKH PT Jul 17, 2023 15:48
[2023-07-17] MEDS: NS IV 1000 ML 1,000 ML IV SCH ×2 (17:00→21:54)
[2023-07-17] MEDS ORDERED: amLODIPine 5 MG TABLET PO NR (18:30)
[2023-07-17] MEDS ORDERED: NON-FORMULARY MEDICATION 1 EA EA (Ondansetron HCl 8 MG) PO PRN (18:30)
[2023-07-17] MEDS ORDERED: ONDANSETRON 4 MG ORAL DISSOLVE TABLET PO PRN (18:45)
[2023-07-17] MEDS: hydrOXYzine 25 MG CAPSULE PO SCH (20:08)
[2023-07-17] MEDS: ACYCLOVIR 400 MG CAPSULE/TABLET PO SCH (20:08)
[2023-07-17] MEDS: PANTOPRAZOLE 40 MG TABLET PO SCH (20:08)
[2023-07-17] MEDS ORDERED: NON-FORMULARY MEDICATION 1 EA EA (Hydroxyzine HCl 25 MG) PO SCH (21:00)
--- NOTE | 2023-07-17 21:28 | Diagnostic Imaging Report ---
PROCEDURE: CT head without contrast. TECHNIQUE: Multiple contiguous axial images were obtained through the brain without the use of intravenous contrast. Auto Exposure Controls were utilized during the CT exam to meet ALARA standards for radiation dose reduction. INDICATION: Follow-up after thrombolytic therapy. COMPARISON: MRI of the brain performed earlier the same day and prior CT study from 07/16/2023. FINDINGS: The small region of apparent cortical ischemia on preceding MRI is not apparent by CT imaging. There are no findings of acute intracranial hemorrhage. The patient's prior low density remote lacunar infarcts within the basal ganglia are unchanged. There is no new loss of barajas-white differentiation. There is no edema. There is no mass effect or hydrocephalus. There is no abnormal extra-axial collection. Mastoid air cells are clear. The paranasal sinuses are clear. The orbital contents are normal. There is no acute calvarial abnormality. IMPRESSION: 1. Known small region of cortical ischemia within the left parietal lobe is not apparent by CT. There are no findings of new loss of barajas-white differentiation. 2. No evidence of hemorrhagic transformation or findings of acute intracranial hemorrhage. Dictated by: Dictated on workstation # [id number]
[2023-07-18 04:21] LABS: BASOPHILS % (AUTO) 1 % (0-10)
[2023-07-18 04:22] LABS: EOSINOPHILS # (AUTO) 0.1 10^3/uL (0.0-0.3); EOSINOPHILS % (AUTO) 2 % (0-10); HEMATOCRIT 25 % (35-52); HEMOGLOBIN 8.1 g/dL (11.5-16.0); LYMPHOCYTES # (AUTO) 1.5 10^3/uL (1.0-4.0); LYMPHOCYTES % (AUTO) 24 % (12-44); MEAN CORPUSCULAR HEMOGLOBIN 31 pg (25-34); MEAN CORPUSCULAR HGB CONC 33 g/dL (32-36); MEAN CORPUSCULAR VOLUME 93 fL (80-99); MEAN PLATELET VOLUME 11.2 fL (9.0-12.2); MONOCYTES # (AUTO) 0.7 10^3/uL (0.0-1.0); MONOCYTES % (AUTO) 11 % (0-12); NEUTROPHILS # (AUTO) 3.9 10^3/uL (1.8-7.8); NEUTROPHILS % (AUTO) 62 % (42-75); PLATELET COUNT 96 10^3/uL (130-400); WHITE BLOOD COUNT 6.4 10^3/uL (4.3-11.0)
[2023-07-18] MEDS: niCARdipine INJECTION 50 MG in NS (IVPB) 250 ML 230 ML IV SCH ×3 (04:45→16:47)
[2023-07-18 05:06] LABS: ALBUMIN 2.6 GM/DL (3.2-4.5); POTASSIUM 4.6 MMOL/L (3.6-5.0)
[2023-07-18 05:07] LABS: CALCIUM 7.5 MG/DL (8.5-10.1)
[2023-07-18 05:08] LABS: TOTAL PROTEIN 5.4 GM/DL (6.4-8.2)
[2023-07-18 05:10] LABS: BILIRUBIN,TOTAL 0.7 MG/DL (0.1-1.0)
[2023-07-18 05:11] LABS: PHOSPHORUS 2.8 MG/DL (2.3-4.7)
[2023-07-18 05:12] LABS: CREATININE SERUM 1.52 MG/DL (0.60-1.30)
[2023-07-18] MEDS: POTASSIUM CL 10MEQ/50ML IVPB 50 ML IV SCH (05:20)
[2023-07-18] MEDS: POTASSIUM CHLORIDE 20 MEQ TABLET PO SCH (05:20)
[2023-07-18 05:28] LABS: MAGNESIUM 3.4 MG/DL (1.6-2.4)
[2023-07-18] MEDS: MAGNESIUM 1 GM/100 ML IVPB 100 ML IV SCH (06:26)
[2023-07-18] MEDS: THERAPEUTIC MULTIVITAMIN W/MINERALS TABLET PO SCH (06:30)
[2023-07-18] MEDS: NS IV 1000 ML 1,000 ML IV SCH ×3 (06:30→16:02)
[2023-07-18] MEDS: FERROUS SULFATE 325 MG (IRON) TABLET PO SCH (08:37)
[2023-07-18] MEDS: FLUoxetine 20 MG CAPSULE PO SCH (08:38)
[2023-07-18] MEDS: ASPIRIN enteric coated 81MG TABLET PO SCH (08:38)
[2023-07-18] MEDS: amLODIPine 10 MG TABLET PO SCH (08:38)
[2023-07-18] MEDS: LACTOBACILLUS ACIDOPHILUS (PROBIOTIC) CAPSULE PO SCH (08:38)
[2023-07-18] MEDS: ACYCLOVIR 400 MG CAPSULE/TABLET PO SCH ×4 (08:38→21:13)
[2023-07-18] MEDS: PANTOPRAZOLE 40 MG TABLET PO SCH ×2 (08:38→21:13)
[2023-07-18] MEDS: CLOPIDOGREL 75 MG TABLET PO SCH (08:39)
[2023-07-18] MEDS ORDERED: amLODIPine 5 MG TABLET PO SCH (09:00)
[2023-07-18] MEDS ORDERED: NON-FORMULARY MEDICATION 1 EA EA (Fluoxetine HCl 40 MG) PO SCH (09:00)
[2023-07-18] MEDS ORDERED: NON-FORMULARY MEDICATION 1 EA EA (L.acidoph & Paracasei,B.lactis (Probiotic) 1 EACH) PO SCH (09:00)
--- NOTE | 2023-07-18 10:38 | Tele-ICU Progress Note ---
Subjective Date Seen by a Provider: Jul 18, 2023 Time Seen by a Provider: 10:37 Subjective/Events-last exam (Tele-ICU Physician , Progress Note ) Service provided via interactive audio and video telecommunications E-CARE system to a patient admitted to ICU bed in [facility]. Patient is seen today due to persistent need of ICU care Available chart/ vitals / labs / Images reviewed Video assessment done using teleICU camera, rest of exam as per RN Discussed with RN Events overnight : Afebrile hemodynamically stable Respiratory - ra I/O = + Drips: cardizem Pressors- no Hospital course: 63 yo emale with colon ca, presents with difficulty speaking at 645pm. Expressive aphasia and bp in 200s. Patient given TPA in ed, and admitted to icu for further workup. A/P Acute ischemic CVA NIH 4 at presentation TPA given in ED MRI - Left parietal lobe region concerning for acute cortical infarct anticoag when able after 24 hours stop permissive hypertension Uncontrolled htn bp goal 180/105 on cardene now- to start PO meds with goal for NL BP ANY - multiole contrast for images - no VO signs - to cont agressive hydration Anemia - no acute bleeding , monitor Thrombocytopenia - monitoe Colon ca with liver mets Lines : subclavian Groshong , (Central Line Necessity Reviewed) Zavala: OG: Nutrition: po Analgesia: Anxiety/ delirium VTE Prophylaxis: scd Stress Ulcer Prophylaxis:na Plans in collaboration with bedside consultants and IM MDs. Discussed with RN to reach out if any questions or concerns Case and care daily discussed on multidisciplinary rounds ( RN, PharmD, Special Education Paraeducator , Respiratory Therapy, supervisor shed workers ) A total of 15 minutes of critical care time was devoted to this patient today, required to treat and/or prevent further deterioration of critical care condition ( as above ) . I am remotely monitoring this patient from another state. I am unable to do the bedside exam, and history/physical and pertinent information is taken from other notes in the computer and bedside staff. Sepsis Event Evaluation Height, Weight, BMI Height: 5'1.00" Weight: 119lbs. 9.0oz. [id number]; 21.56 BMI Method:Stated Exam Exam Patient acknowledged, consented, and participated in this virtual visit which was conducted using real time audio/video Vital Signs Date Time Temp Pulse Resp B/P (MAP) Pulse Ox O2 Delivery O2 Flow Rate FiO2 9/14/23 08:00 36.5 07/18/23 07:00 84 07/18/23 06:00 89 14 159/78 (105) 100 Room Air 07/18/23 05:00 80 13 174/80 (111) 95 Room Air 07/18/23 05:00 174/85 07/18/23 04:30 168/86 07/18/23 04:02 99 Room Air 07/18/23 04:00 79 16 169/88 (115) 96 Room Air 07/18/23 04:00 36.7 07/18/23 03:00 80 16 179/91 (120) 94 Room Air 07/18/23 02:00 77 13 169/79 (109) 94 Room Air 07/18/23 01:00 83 07/18/23 01:00 85 17 169/80 (109) 96 Room Air 07/18/23 00:00 36.6 07/18/23 00:00 75 16 176/87 (116) 96 Room Air 07/17/23 23:59 98 Room Air 07/17/23 23:00 77 14 171/86 (114) 95 Room Air 07/17/23 22:00 80 16 163/76 (105) 96 Room Air 07/17/23 21:00 85 16 158/77 (104) 97 Room Air 07/17/23 20:14 99 Room Air 07/17/23 20:00 82 18 153/71 (98) 97 Room Air 07/17/23 20:00 36.6 07/17/23 19:00 80 12 159/77 (104) 97 Room Air 07/17/23 19:00 81 07/17/23 18:00 81 19 164/79 (107) 97 Room Air 07/17/23 17:00 80 28 145/99 (114) 96 Room Air 07/17/23 16:00 84 13 152/66 (94) 96 Room Air 07/17/23 15:48 100 Room Air 07/17/23 15:39 36.6 07/17/23 15:00 86 18 147/62 (90) 97 Room Air 07/17/23 14:00 86 19 153/75 (101) 99 Room Air 07/17/23 13:00 90 14 162/76 (104) 100 Room Air 07/17/23 12:39 36.6 07/17/23 12:28 178/91 07/17/23 12:09 85 07/17/23 12:00 80 15 170/78 (108) 98 Room Air 07/17/23 12:00 100 Room Air 07/17/23 11:00 86 20 197/103 (134) 100 Room Air I & O 07/18/23 07:00 Intake Total 3450 ml Output Total 2075 ml Balance 1375 ml Height & Weight Height: 5'1.00" Weight: 119lbs. 9.0oz. 54.736144jk; 21.56 BMI Method:Stated General Appearance: No Apparent Distress Capillary Refill: Less Than 3 Seconds Gastrointestinal: normal bowel sounds, soft, tenderness (mild generalized ttp she relates to her history of colon ca and surgeries) Results Lab Laboratory Tests 07/16/23 19:28 07/17/23 04:55 07/18/23 04:14 Assessment/Plan Assessment/Plan 1 PRADEEP LATIF MD Jul 18, 2023 10:38
[2023-07-18] MEDS: LOPERAMIDE 2 MG CAPSULE PO PRN ×2 (10:47→13:13)
--- NOTE | 2023-07-18 12:19 | Progress Note ---
DIEGO MARIA 07/18/23 1219: Subjective Subjective/Events-last exam Patient is resting comfortably in bed this morning. She had no concerns and is ready to go home. Denies [place], vision changes, chest pain, soa, weakness, loss of sensation, or dysuria. Discussion was had about her increased creatinine levels. She said Dr. Lovell (her oncologist) had recently referred her to a parts and service manager to follow-up on this. Objective Exam Last Set of Vital Signs Vital Signs Date Time Temp Pulse Resp B/P (MAP) Pulse Ox O2 Delivery O2 Flow Rate FiO2 07/18/23 10:48 138/75 07/18/23 10:00 84 19 97 Room Air 07/18/23 08:00 36.5 07/17/23 04:00 97 Capillary Refill : Less Than 3 Seconds I&O Intake and Output 07/18/23 00:00 Intake Total 2350 ml Output Total 1725 ml Balance 625 ml Intake Oral 800 ml IV Total 1550 ml Output Urine Total 1725 ml General: Alert, Oriented X3, Cooperative, No Acute Distress HEENT: Atraumatic Lungs: Other (Bilateral inspiratory wheezes) Heart: Regular Rate, Normal S1, Normal S2, No Murmurs Abdomen: Normal Bowel Sounds, Other (Generalized abdominal tenderness due to colon cancer) Extremities: No Clubbing, No Cyanosis, No Edema, Normal Pulses, No Tenderness/Swelling Skin: No Rashes, No Breakdown, No Significant Lesion Neuro: Normal Speech, Strength at 5/5 X4 Ext, Normal Tone, Sensation Intact, Cranial Nerves 3-12 NL, Reflexes 2+, Other (Left hand intention tremor on finger-nose testing) Psych/Mental Status: Mental Status NL, Mood NL Results/Procedures Lab Laboratory Tests 07/18/23 04:14: White Blood Count 6.4, Red Blood Count 2.65L, Hemoglobin 8.1L, Hematocrit 25L, Mean Corpuscular Volume 93, Mean Corpuscular Hemoglobin 31, Mean Corpuscular Hemoglobin Concent 33, Red Cell Distribution Width 17.0H, Platelet Count 96L, Mean Platelet Volume 11.2, Immature Granulocyte % (Auto) 1, Neutrophils (%) (Auto) 62, Lymphocytes (%) (Auto) 24, Monocytes (%) (Auto) 11, Eosinophils (%) (Auto) 2, Basophils (%) (Auto) 1, Neutrophils # (Auto) 3.9, Lymphocytes # (Auto) 1.5, Monocytes # (Auto) 0.7, Eosinophils # (Auto) 0.1, Basophils # (Auto) 0.0, Immature Granulocyte # (Auto) 0.1, Percent Immature Platelet Fraction 5.5, Sodium Level 132L, Potassium Level 4.6, Chloride Level 109H, Carbon Dioxide Level 17L, Anion Gap 6, Blood Urea Nitrogen 15, Creatinine 1.52H, Estimat Glomerular Filtration Rate 38, BUN/Creatinine Ratio 10, Glucose Level 88, Calcium Level 7.5L, Corrected Calcium 8.6, Phosphorus Level 2.8, Magnesium Level 3.4H, Total Bilirubin 0.7, Aspartate Amino Transf (AST/SGOT) 43H, Alanine Aminotransferase (ALT/SGPT) 27, Alkaline Phosphatase 116, Total Protein 5.4L, Albumin 2.6L Microbiology 07/16/23 MRSA Screen - Final, Complete MRSA not isolated Radiology Chest X-Ray: No acute cardiopulmonary process is detected. Head CT (07/16) 1. Age-related volume loss with multiple low density remote appearing lacunar infarcts within the basal ganglia. 2. No findings of territorial loss of barajas-white differentiation or edema to suggest acute ischemia. 3. No hemorrhage, mass effect or hydrocephalus. 4. No identifiable asymmetric hyperdense blood vessel. CTA Head and Neck: 1. No CT angiographic evidence of intracranial large vessel occlusion. 2. Approximately 50% stenosis at the carotid bifurcations within the neck. There are no findings of dissection. 3. Dural venous sinuses are patent. 4. No findings of aneurysm or vascular malformation. 5. The dural venous sinuses are patent. 6. No evidence of pathologic intracranial enhancement. MRI Brain: 1: There is a small area of abnormal signal involving the cortical region of the left parietal lobe region concerning for acute cortical infarct. There is no intraparenchymal hemorrhage or brain herniation. 2: There is chronic small vessel ischemic disease and leukoaraiosis. Head CT (07/17): 1. Known small region of cortical ischemia within the left parietal lobe is not apparent by CT. There are no findings of new loss of barajas-white differentiation. 2. No evidence of hemorrhagic transformation or findings of acute intracranial hemorrhage. Assessment/Plan Assessment/Plan (1) Acute ischemic stroke Status: Acute Assessment & Plan: - Patient presented to ED with expressive aphasia concerning for an acute ischemic stroke. ED doctor ordered CT head which showed no evidence of hemorrhagic stroke. [facility] neurology was consulted and the patient was given tenecteplase in the ED. - CTA head and neck showed approximately 50% stenosis at the carotid bifurcations within the neck. There are no findings of dissection. - MRI brain showed a small area of abnormal signal involving the cortical region of the left parietal lobe region concerning for acute cortical infarct. There is no intraparenchymal hemorrhage or brain herniation. There is chronic small vessel ischemic disease and leukoaraiosis. - Normal EKG on admission - Normal lipid panel - D-dimer elevated at 2.14 on admission - Patient was cleared for swallowing by occupational therapy - Aspirin 81mg and plavix 75mg started - Patient has had an allergy to lovastatin in the past. Rosuvastatin 5mg started - Consulting cardiology for possible 30 day heart monitor to determine if patient has paroxysmal afib or any other heart events that may have caused clot - Pending echocardiogram results - Repeat Head CT on 07/17: No evidence of hemorrhagic transformation or findings of acute intracranial hemorrhage. (2) Hypertension Status: Chronic Assessment & Plan: - Patients blood pressure was greater that 200 upon admission to ED. She was started on a nicardipine drip at this time. - Patient managed BP at home with amlodipine and losartan. - Amlodipine 5mg started last night to ween off nicardipine and resume WHEAT FARMER BP meds. BP continued to be elevated so nicardipine drip was restarted last night - Amlodipine increased to 10mg and consider adding losartan so that we can ween off of nicardipine drip - Goal BP of 140's/90's Qualifiers: Qualified Codes: I10 - Essential (primary) hypertension (3) Elevated serum creatinine Status: Acute Assessment & Plan: - Patient had Cr level of 2.07 on admission - Cr level of 1.52 up from 1.31 yesterday. Bump could be secondary to IV contrast used for imaging - Patient was recently referred to a parts and service manager by her oncologist, Dr. Lovell. So her creatinine levels have been elevated. Unsure what her baseline is. - Continuing NS IV fluids - Trend AM CMP (4) Hypokalemia Status: Resolved Assessment & Plan: - Potassium level of upon admission was 2.9. - Potassium was replaced with subsequent potassium level being 3.8 - Hypokalemia most likely secondary to diarrhea caused by chemotherapeutic agent. Magnesium level of 1 upon admission may be contributing to low potassium levels. - Magnesium replaced. (5) Hypomagnesemia Status: Resolved Assessment & Plan: - Magnesium level of 1 upon admission - Magnesium replaced - Magnesium level was high at 3.4 on 07/17 - Repeat AM magnesium level (6) Metastatic colon cancer to liver Status: Chronic Assessment & Plan: - Patient follows with Dr. Lovell for her cancer - She is taking Avastin as her chemotherapeutic drug (7) Depression Status: Chronic Assessment & Plan: - Continue WHEAT FARMER Prozac 60mg - Continue WHEAT FARMER hyroxyzine 25mg Qualifiers: Qualified Codes: F32.89 - Other specified depressive episodes (8) Anxiety Status: Chronic Assessment & Plan: - Continue WHEAT FARMER Prozac 60mg - Continue WHEAT FARMER hyroxyzine 25mg Clinical Quality Measures Stroke: Date of last known well: Jul 16, 2023 Time of last known well: 18:45 RADHA VIGIL MD 07/18/23 1723: Supervisory-Addendum Brief Supervisory Addendum I personally performed or re-performed the history, physical exam and treatment for the E/M. I discussed the case with the Medical Student, and concur with the Medical Student documentation of history, physical exam and treatment plan unless otherwise noted. DIEGO MARIA Jul 18, 2023 12:19 RADHA VIGIL MD Jul 18, 2023 17:23
[2023-07-18] MEDS ORDERED: LOSARTAN 100 MG TABLET PO NR (13:00)
--- NOTE | 2023-07-18 14:47 | Physical Therapy Evaluation ---
PT Evaluation-General Medical Diagnosis Admission Date Jul 16, 2023 at 22:27 Medical Diagnosis: Stroke-Like Symptoms Onset Date: Jul 16, 2023 Therapy Diagnosis Therapy Diagnosis: debility/weakness Height/Weight Height (Feet): 5 Height (Inches): 1.00 Weight (Pounds): 119 Weight (Ounces): 9.0 Precautions Precautions/Isolations: Chemo Precautions, Fall Prevention Referral Physician: Stepan Reason for Referral: Evaluation/Treatment Medical History Pertinent Medical History: HTN Additional Medical History metastatic colon cancer Current History EMS secondary to possible CVA (TPA issued) Reviewed History: Yes Social History Home: Single Level Current Living Status: Spouse Entry Into Home: Stairs With Railing PT Steps Into Home: 5 Prior Prior Level of Function SCALE: Activities may be completed with or without assistive devices. 7-Wstdkihehp-pkvmmkn completes the activity by him/herself with no assistance from a helper. 5-Set-up or Clean-up Assistance-helper sets up or cleans up; patient completes activity. [place] assists only prior to or following the activity. 4-Supervision or Touching Assistance-helper provides verbal cues and/or touching/steadying and/or contact guard assistance as patient completes activity. Assistance may be provided throughout the activity or intermittently. 3-Partial/Moderate Assistance-helper does LESS THAN HALF the effort. [place] lifts, holds or supports trunk or limbs, but provides less than half the effort. 2-Substantial/Maximal Assistance-helper does MORE THAN HALF the effort. [place] lifts or holds trunk or limbs and provides more than half the effort. 6-Jbofwfbjo-sdsqjt does ALL the effort. Patient does none of the effort to complete the activity. Or, the assistance of 2 or more helpers is required for the patient to complete the activity. If activity was not attempted, code reason: 7-Patient Refused. 9-Not Applicable-not attempted and the patient did not perform the activity before the current illness, exacerbation or injury. 10-Not Attempted due to Environmental Limitations-(lack of equipment, weather restraints, etc.). 88-Not Attempted due to Medical Conditions or Safety Concerns. Bed Mobility: 6 Transfers (B,C,W/C): 6 Gait: 6 Stairs: 6 Indoor Mobility (Ambulation): Independent Stairs: Independent Prior Devices Use: None Prior Device Use: FWW PT Evaluation-Current Subjective Patient agrees to PT. Objective Patient Orientation: Normal For Age Attachments: Central Line, Zavala Catheter ROM/Strength ROM Lower Extremities bilateral LE WFL Strength Lower Extremities 4-/5 grossly bilateral LE all planes Integumentary/Posture Bladder Incontinence: Zavala Cath Posture WFL Neuromuscular (Tone, Coordination, Reflexes) grossly intact Sensory Vision: Wears Glasses Hearing: Functional Transfers Lying to Sitting/Side of Bed(Q: 6 Sit to Stand (QC): 4 Chair/Lqj-ji-Kjsfi Xfer(QC): 4 Gait Mode of Locomotion: Walk Anticipated Mode of Locomotion: Walk Walk 10 feet (QC): 4 Walk 50 ft with 2 Turns(QC): 4 Walk 150 ft (QC): 4 Distance: 400' Gait Assistive Device: FWW Comments/Gait Description 4 episodes of slight LOB with self correct Balance Sitting Static: Normal Sitting Dynamic: Normal Standing Static: Fair Standing Dynamic: Fair Assessment/Needs Patient will be seen short term by skilled PT to address functional strength and mobility to improve current LOF to safely return to home at maximum LOF. Rehab Potential: Fair PT [facility] Goals Dial Lathe Operator Goals PT [facility]it[facility]iary Goals Time Frame: Jul 27, 2023 Roll Left & Right (QC): 6 Sit to Lying (QC): 6 Lying-Sitting on Side/Bed(QC): 6 Sit to Stand (QC): 6 Chair/Eku-ks-Dcvqe Xfer(QC): 6 Toilet Transfer (QC): 6 Walk 10 feet (QC): 6 Walk 50ft with 2 Turns (QC): 6 Walk 150 ft (QC): 6 PT Plan Treatment/Plan Treatment Plan: Continue Plan of Care Treatment Plan: Education, Functional Activity [place], Functional Strength, Gait, Safety, Therapeutic Exercise, Transfers Treatment Duration: Jul 27, 2023 Frequency: 6 times per week Estimated Hrs Per Day: .25 hour per day Patient and/or Family Agrees t: Yes Time Time In: 1405 Time Out: 1428 DATE: Jul 18, 2023 Total Billed Treatment Time: 23 Total Billed Treatment 1 visit EVModC 10 min FA 13 min ALBINO BRADY PT Jul 18, 2023 14:46
[2023-07-18] MEDS ORDERED: ROSUVASTATIN 5 MG TABLET PO SCH (21:00)
[2023-07-18] MEDS: hydrOXYzine 25 MG CAPSULE PO SCH (21:13)
[2023-07-19] MEDS: NS IV 1000 ML 1,000 ML IV SCH (03:22)
[2023-07-19 05:02] LABS: BASOPHILS % (AUTO) 0 % (0-10); EOSINOPHILS # (AUTO) 0.2 10^3/uL (0.0-0.3); EOSINOPHILS % (AUTO) 2 % (0-10)
[2023-07-19 05:04] LABS: HEMATOCRIT 23 % (35-52); HEMOGLOBIN 7.7 g/dL (11.5-16.0); LYMPHOCYTES # (AUTO) 1.5 10^3/uL (1.0-4.0); LYMPHOCYTES % (AUTO) 22 % (12-44); MEAN CORPUSCULAR HEMOGLOBIN 31 pg (25-34); MEAN CORPUSCULAR HGB CONC 33 g/dL (32-36); MEAN CORPUSCULAR VOLUME 94 fL (80-99); MONOCYTES % (AUTO) 15 % (0-12); NEUTROPHILS % (AUTO) 60 % (42-75); PLATELET COUNT 90 10^3/uL (130-400); WHITE BLOOD COUNT 6.7 10^3/uL (4.3-11.0)
[2023-07-19 05:18] LABS: ALBUMIN 2.5 GM/DL (3.2-4.5); BILIRUBIN,TOTAL 0.4 MG/DL (0.1-1.0); CALCIUM 7.6 MG/DL (8.5-10.1); CREATININE SERUM 1.62 MG/DL (0.60-1.30); MAGNESIUM 2.5 MG/DL (1.6-2.4); PHOSPHORUS 3.1 MG/DL (2.3-4.7); POTASSIUM 3.8 MMOL/L (3.6-5.0)
[2023-07-19] MEDS: POTASSIUM CL 10MEQ/50ML IVPB 50 ML IV SCH ×3 (05:35→07:42)
[2023-07-19] MEDS: POTASSIUM CHLORIDE 20 MEQ TABLET PO SCH (05:35)
[2023-07-19] MEDS: MAGNESIUM 1 GM/100 ML IVPB 100 ML IV SCH (05:35)
[2023-07-19] MEDS ORDERED: POTASSIUM CL 10MEQ/50ML IVPB 100 ML IV ONE (06:08)
[2023-07-19] MEDS: THERAPEUTIC MULTIVITAMIN W/MINERALS TABLET PO SCH (06:11)
--- NOTE | 2023-07-19 07:46 | Consultation-Cardiology ---
HPI-Cardiology Cardiology Consultation: Date of Consultation 07/19/23 Date of Admission Attending Physician Jose Villeda MD Admitting Physician Admitting Physician: Kassidy Ying MD Attending Physician: Kassidy Ying MD Consulting Physician RADHA SHAVER MD HPI: Time Seen by a Provider: 07:00 Georgie Forrester is a 63-year-old female with a history of stage IV colon cancer, inoperable, undergoing chemo followed by Dr. Arriola, anemia with recent transfusion of 1 unit last Saturday, hemoglobin 7.2, hypertension, recent CVA, depression/anxiety, GERD who presents for evaluation of aphasia and difficulty moving bilateral arms. Patient states that she was at home and then experienced acute onset aphasia and difficulty with moving hands. She was able to stand and move her legs. Her called EMS and she was brought in for evaluation. She underwent a head CT which is negative for hemorrhage. She then underwent tenecteplase infusion. Blood pressures at that time were noted to be greater than 200 systolic. After tenecteplase infusion, patient noted gradual improvement of her symptoms. No residual deficits are noted at this point time. Brain MRI demonstrates a left parietal lobe acute infarct. Head and neck CTA demonstrates 50% disease in the bilateral carotid bifurcations otherwise no aneurysms or vascular malformations are noted. Patient reports palpitations in her 20s. None since that time. She denies any acute onset episodes of fatigue or feeling butterflies in her chest. She denies any lightheadedness dizziness chest discomfort or shortness of breath. She did have an echocardiogram which demonstrated normal LV RV size and function. No obvious shunt is noted by administration of agitated saline. She does have an enlarged left atrium. Review of Systems-Cardiology Review of Systems : No All Other Systems Reviewed Negative Unless Noted: Yes (All systems were reviewed and are negative except for what is been described in HPI) BYP-Ihqszl-Mybsjl Hx Patient Social History Marrital Status: Smoking Status: Former Smoker (Approximately 80 pack year history) 2nd Hand Smoke Exposure: No Alcohol Use?: No Pt feels they are or have been: No Immunizations Up To Date Date of Pneumonia Vaccine: Aug 10, 2020 Date of Influenza Vaccine: Sep 10, 2021 Past Medical History PMH As described under Assessment. Family Medical History Family Medical History: Patient does not know her family well. No immediate history of CAD or CVA Family History: Colon cancer 19 MOTHER Diabetes mellitus 19 MOTHER Allergies and Home Medications Allergies Coded Allergies: Penicillins (Verified Allergy, Mild, YEAST INFECTION, 03/11/20) doxycycline (Verified Allergy, Unknown, 03/11/20) levofloxacin (Verified Allergy, Unknown, 03/11/20) lovastatin (Verified Allergy, Unknown, 03/11/20) Patient Home Medication List Home Medication List Reviewed: Yes Acyclovir (Acyclovir) 400 Mg Tablet, 400 MG PO QID, (Reported) Entered as Reported by: MARY CARSON on 07/17/231135 Last Action: Continued Amlodipine Besylate (Amlodipine Besylate) 10 Mg Tablet, 10 MG PO DAILY, (Reported) Entered as Reported by: MARY CARSON on 07/17/231135 Last Action: Held Aspirin (Aspirin EC) 81 Mg Tablet.dr, 81 MG PO MO,WE,FR, (Reported) Entered as Reported by: MARY CARSON on 07/17/231135 Last Action: Held Ferrous Sulfate (Iron) 325 Mg (65 Mg Iron) Tablet, 325 MG PO DAILY, (Reported) Entered as Reported by: MARY CARSON on 07/17/231135 Last Action: Continued Fluoxetine HCl (Fluoxetine HCl) 20 Mg Capsule, 20 MG PO DAILY, (Reported) Entered as Reported by: MARY CARSON on 07/17/231135 Last Action: Continued Fluoxetine HCl (Fluoxetine HCl) 40 Mg Capsule, 40 MG PO DAILY, (Reported) Entered as Reported by: MARY CARSON on 07/17/231135 Last Action: Converted Hydroxyzine HCl (Hydroxyzine HCl) 25 Mg Tablet, 25 MG PO HS, (Reported) Entered as Reported by: MARY CARSON on 07/17/231135 Last Action: Converted L.acidoph & Paracasei,B.lactis (Probiotic) 1 Each Capsule, 1 EACH PO DAILY, (Reported) Entered as Reported by: AMINA MARIE on 03/11/20 1207 Last Action: Converted Loperamide HCl (Imodium A-D) 2 Mg Capsule, 2-4 MG PO UD PRN for LOOSE STOOLS, (Reported) Entered as Reported by: MARY CARSON on 07/17/231135 Last Action: Held Losartan Potassium (Losartan Potassium) 100 Mg Tablet, 100 MG PO DAILY, (Reported) Entered as Reported by: MARY CARSON on 07/17/231135 Last Action: Continued Mv-Mn/Folic/Lutein/Herbal 293 (Alive Premium Women's 50 Plus) 80 Mcg-166.7 Mcg- 66.7 Mg Tab.chew, 2 EACH PO DAILY, (Reported) Entered as Reported by: MARY CARSON on 07/17/231135 Last Action: Converted Ondansetron HCl (Ondansetron HCl) 8 Mg Tablet, 8 MG PO Q8H PRN for NAUSEA/VOMITING-1ST LINE, (Reported) Entered as Reported by: MARY CARSON on 07/17/231135 Last Action: Converted Pantoprazole Sodium (Pantoprazole Sodium) 40 Mg Tablet.dr, 40 MG PO BID, (Reported) Entered as Reported by: MARY CARSON on 07/17/231135 Last Action: Continued Tramadol HCl (Tramadol HCl) 50 Mg Tablet, 50 MG PO DAILY, (Reported) Entered as Reported by: MARY CARSON on 07/17/231135 Last Action: Continued Discontinued Medications Amlodipine Besylate (Amlodipine Besylate) 5 Mg Tablet, 5 MG PO DAILY, (Reported) Discontinued Reason: No Longer Taking Entered as Reported by: AMINA MARIE on 03/11/201206 Last Action: Discontinued Aspirin (Aspir 81) 81 Mg Tablet.dr, 81 MG PO DAILY, (Reported) Discontinued Reason: No Longer Taking Entered as Reported by: AMINA MARIE on 03/19/19 1600 Last Action: Discontinued Aspirin/Acetaminophen/Caffeine (Excedrin Migraine Caplet) 1 Each Tablet, 2 EACH PO Q6-8HR PRN for Headache, (Reported) Discontinued Reason: No Longer Taking Entered as Reported by: AMINA MARIE on 03/11/201206 Last Action: Discontinued Fluoxetine HCl (Prozac) 20 Mg Capsule, 20 MG PO DAILY, (Reported) Discontinued Reason: No Longer Taking Entered as Reported by: AMINA MARIE on 03/19/19 1600 Last Action: Discontinued Fluticasone Propionate (Flonase Allergy Relief) 9.9 Ml [place].susp, 2 SPRAY NS DAILY, (Reported) Discontinued Reason: No Longer Taking Entered as Reported by: ELOY STRICKLAND on 04/30/19 1525 Last Action: Discontinued Iron (Iron) 18 Mg Tablet, 27 MG PO Q48H, (Reported) Discontinued Reason: No Longer Taking Entered as Reported by: AMINA MARIE on 03/19/19 1600 Last Action: Discontinued Losartan Potassium (Losartan Potassium) 50 Mg Tablet, 50 MG PO DAILY, (Reported) Discontinued Reason: No Longer Taking Entered as Reported by: AMINA MARIE on 03/11/20 1207 Last Action: Discontinued Multivitamin (Multiple Vitamins) 1 Each Tablet, 1 TAB PO BID, (Reported) Discontinued Reason: No Longer Taking Entered as Reported by: AMINA MARIE on 03/19/19 1600 Last Action: Discontinued Tramadol HCl (Tramadol HCl) 50 Mg Tablet, 100 MG PO Q6H PRN for PAIN-MODERATE, (Reported) Discontinued Reason: No Longer Taking Entered as Reported by: LUZ BURNS on 04/29/19 2112 Last Action: Discontinued Exam Vital Signs Vital Signs Date Time Temp Pulse Resp B/P (MAP) Pulse Ox O2 Delivery O2 Flow Rate FiO2 07/19/23 06:00 82 15 134/65 (88) 94 Room Air 07/18/23 19:00 36.5 07/17/23 04:00 97 Physical Exam Gen: NAD, resting comfortably Neck: No bruits, no JVD Lungs: CTA B; no w-r-r CV: nl s1/s2; no murmurs gallops or rubs, regular rate and rhythm Abd: + BS, soft NT,ND, no hepatosplenomegaly. Ext: 2+ radial and DP pulses; no c-c-e, wwp Neuro: Moving all 4 extremities. Good strength Labs Laboratory Tests Test 07/19/23 04:50 Range/Units White Blood Count 6.7 4.3-11.0 10^3/uL Red Blood Count 2.48 L 3.80-5.11 10^6/uL Hemoglobin 7.7 L 11.5-16.0 g/dL Hematocrit 23 L 35-52 % Mean Corpuscular Volume 94 80-99 fL Mean Corpuscular Hemoglobin 31 25-34 pg Mean Corpuscular Hemoglobin Concent 33 32-36 g/dL Red Cell Distribution Width 17.2 H 10.0-14.5 % Platelet Count 90 L 130-400 10^3/uL Mean Platelet Volume 12.0 9.0-12.2 fL Immature Granulocyte % (Auto) 1 % Neutrophils (%) (Auto) 60 42-75 % Lymphocytes (%) (Auto) 22 12-44 % Monocytes (%) (Auto) 15 H 0-12 % Eosinophils (%) (Auto) 2 0-10 % Basophils (%) (Auto) 0 0-10 % Neutrophils # (Auto) 4.0 1.8-7.8 10^3/uL Lymphocytes # (Auto) 1.5 1.0-4.0 10^3/uL Monocytes # (Auto) 1.0 0.0-1.0 10^3/uL Eosinophils # (Auto) 0.2 0.0-0.3 10^3/uL Basophils # (Auto) 0.0 0.0-0.1 10^3/uL Immature Granulocyte # (Auto) 0.0 0.0-0.1 10^3/uL Percent Immature Platelet Fraction 4.2 0.0-7.6 % Sodium Level 136 135-145 MMOL/L Potassium Level 3.8 3.6-5.0 MMOL/L Chloride Level 114 H 98-107 MMOL/L Carbon Dioxide Level 16 L 21-32 MMOL/L Anion Gap 6 5-14 MMOL/L Blood Urea Nitrogen 16 7-18 MG/DL Creatinine 1.62 H 0.60-1.30 MG/DL Estimat Glomerular Filtration Rate 35 BUN/Creatinine Ratio 10 Glucose Level 93 70-105 MG/DL Calcium Level 7.6 L 8.5-10.1 MG/DL Corrected Calcium 8.8 8.5-10.1 MG/DL Phosphorus Level 3.1 2.3-4.7 MG/DL Magnesium Level 2.5 H 1.6-2.4 MG/DL Total Bilirubin 0.4 0.1-1.0 MG/DL Aspartate Amino Transf (AST/SGOT) 30 5-34 U/L Alanine Aminotransferase (ALT/SGPT) 23 0-55 U/L Alkaline Phosphatase 107 40-136 U/L Total Protein 5.0 L 6.4-8.2 GM/DL Albumin 2.5 L 3.2-4.5 GM/DL A/P-Cardiology Plan 63-year-old female with a history of stage IV colon cancer, inoperable, undergoing chemo followed by Dr. Arriola, anemia with recent transfusion of 1 unit last Saturday, hemoglobin 7.2, hypertension, recent CVA, depression/anxiety, GERD who presents for evaluation of aphasia and difficulty moving bilateral arms. ##CVA: Status post tenecteplase. Currently on Plavix and aspirin. On Crestor 5, will increase to Crestor 20 in keeping with current guidelines. Blood pressure control as you are doing. Currently on nicardipine drip. Will initiate Coreg 6.25 twice daily to help with jessica blockade as well as improving blood pressures. Unclear etiology. No obvious shunt noted on TTE. Left atrium is mildly enlarged. I do believe patient will benefit from longer term monitoring. We will consider either loop recorder implantation on this admission or event monitor for 4 weeks immediately postdischarge. Check a TSH and a free T4. Check A1c. Fasting lipid panel demonstrates LDL of 105, HDL of 41, triglycerides of 88, total cholesterol of 155. Would target LDL less than 55. Personal review of EKG demonstrates normal sinus rhythm, incomplete right bundle branch block, low voltage. ##Hypertension: Target blood pressures less than 130/80 at this time. Continue losartan, hydrochlorothiazide, Norvasc. Start Coreg 6.25 mg p.o. twice daily. Gradual up titration of antihypertensives and down titration of nicardipine drip. RADHA SHAVER MD Jul 19, 2023 07:46
[2023-07-19 08:21] LABS: FREE T4 (FREE THYROXINE) 0.87 NG/DL (0.70-1.48)
--- NOTE | 2023-07-19 08:38 | Physical Therapy Daily Note ---
PT Daily Note-Current Subjective Patient agrees to therapy. Pain Section J - Health Conditions 1. Rarely or not at all 2. Occasionally 3. Frequently 4. Almost constantly 8. Unable to answer Pain Effect on Sleep: 1 Pain Interference with Therapy: 1 Pain Interference w/Day-to-Day: 1 Mental Status Patient Orientation: Normal For Age Attachments: Central Line Transfers SCALE: Activities may be completed with or without assistive devices. 0-Fhziryxdyt-pizewhf completes the activity by him/herself with no assistance from a helper. 5-Set-up or Clean-up Assistance-helper sets up or cleans up; patient completes activity. [place] assists only prior to or following the activity. 4-Supervision or Touching Assistance-helper provides verbal cues and/or touching/steadying and/or contact guard assistance as patient completes activity. Assistance may be provided throughout the activity or intermittently. 3-Partial/Moderate Assistance-helper does LESS THAN HALF the effort. [place] lifts, holds or supports trunk or limbs, but provides less than half the effort. 2-Substantial/Maximal Assistance-helper does MORE THAN HALF the effort. [place] lifts or holds trunk or limbs and provides more than half the effort. 9-Ylxtnirdf-qjmuwt does ALL the effort. Patient does none of the effort to complete the activity. Or, the assistance of 2 or more helpers is required for the patient to complete the activity. If activity was not attempted, code reason: 7-Patient Refused. 9-Not Applicable-not attempted and the patient did not perform the activity before the current illness, exacerbation or injury. 10-Not Attempted due to Environmental Limitations-(lack of equipment, weather restraints, etc.). 88-Not Attempted due to Medical Conditions or Safety Concerns. Lying to Sitting/Side of Bed(Q: 6 Sit to Stand (QC): 6 Chair/Ubf-xz-Nfmqx Xfer(QC): 6 Gait Training Distance: 250' Walk 10 feet (QC): 6 Walk 50 ft with 2 Turns(QC): 6 Walk 150 ft (QC): 6 Gait Assistive Device: FWW safe and functional with no deviation Assessment Patient is currently at independent PLOF with all gross motor skills safely. PT to dismiss patient from services at this time. PT Long-Term Goals Radio Engineering Teacher Goals PT Radio Engineering Teacher Goals Time Frame: Jul 27, 2023 Roll Left & Right (QC): 6 Sit to Lying (QC): 6 Lying-Sitting on Side/Bed(QC): 6 Sit to Stand (QC): 6 Chair/Dtb-jh-Jrnwk Xfer(QC): 6 Toilet Transfer (QC): 6 Walk 10 feet (QC): 6 Walk 50ft with 2 Turns (QC): 6 Walk 150 ft (QC): 6 PT Plan Treatment/Plan Treatment Plan: Discontinue PT Treatment Plan: Education, Functional Activity [place], Functional Strength, Gait, Safety, Therapeutic Exercise, Transfers Treatment Duration: Jul 27, 2023 Frequency: 6 times per week Estimated Hrs Per Day: .25 hour per day Patient and/or Family Agrees t: Yes Time Time In: 815 Time Out: 830 DATE: Jul 19, 2023 Total Billed Treatment Time: 15 Total Billed Treatment 1 visit FA 15 min ALBINO BRADY PT Jul 19, 2023 08:38
--- NOTE | 2023-07-19 08:54 | Occupational Ther Daily Note ---
OT Current Status-Daily Note Subjective Up eating breakfast, has been up to bathroom in ICU room w/o assistance Mental Status/Objective Patient Orientation: Person, Place, Time, Situation Attachments: IV ADL-Treatment Completing ADL bedside assistance w/ lines. Therapy Code Descriptions/Definitions Functional [place] Measure: 0=Not Assessed/NA 4=Minimal Assistance 1=Total Assistance 5=Supervision or Setup 2=Maximal Assistance 6=Modified [place] 3=Moderate Assistance 7=Complete IndependenceSCALE: Activities may be completed with or without assistive devices. 2-Oaculsmggm-qbiuxmb completes the activity by him/herself with no assistance from a helper. 5-Set-up or Clean-up Assistance-helper sets up or cleans up; patient completes activity. [place] assists only prior to or following the activity. 4-Supervision or Touching Assistance-helper provides verbal cues and/or touching/steadying and/or contact guard assistance as patient completes activity. Assistance may be provided throughout the activity or intermittently. 3-Partial/Moderate Assistance-helper does LESS THAN HALF the effort. [place] lifts, holds or supports trunk or limbs, but provides less than half the effort. 2-Substantial/Maximal Assistance-helper does MORE THAN HALF the effort. [place] lifts or holds trunk or limbs and provides more than half the effort. 8-Jeluzhvbv-mkehau does ALL the effort. Patient does none of the effort to complete the activity. Or, the assistance of 2 or more helpers is required for the patient to complete the activity. If activity was not attempted, code reason: 7-Patient Refused. 9-Not Applicable-not attempted and the patient did not perform the activity before the current illness, exacerbation or injury. 10-Not Attempted due to Environmental Limitations-(lack of equipment, weather restraints, etc.). 88-Not Attempted due to Medical Conditions or Safety Concerns. Eating (QC): 6 Oral Hygiene (QC): 6 Upper Body Dressing (QC): 5 Lower Body Dressing (QC): 6 On/Off Footwear: 6 Toileting Hygiene (QC): 6 Toilet Transfer (QC): 6 Education OT Patient Education: Correct positioning, Energy conservation, Exercise program, Modified ADL techniques, Progress toward Goal/Update tx plan, Purpose of tx/functional activities, Reviewed precautions, Rehab process, Safety issues, Transfer techniques Teaching Recipient: Patient Teaching Methods: Discussion Response to Teaching: Return Demonstration OT Ground Operations Supervisor Goals Jail Goals 1=Demonstrate adherence to instructed precautions during ADL tasks. 2=Patient will verbalize/demonstrate understanding of assistive devices/modifications for ADL. 3=Patient will improve strength/tolerance for activity to enable patient to perform ADL's. OT Education/Plan Problem List/Assessment Assessment: No Skilled OT Needs ID'd Discharge Recommendations Plan/Recommendations: Discharge/Goals Met Treatment Plan/Plan of Care Patient would benefit from OT for education, treatment and training to promote independence in ADL's, mobility, safety and/or upper extremity function for ADL's. Plan of Care: OTHER (DC OT) Treatment Duration: Jul 19, 2023 Frequency: 1 time per week Estimated Hrs Per Day: .25 hour per day Agreement: Yes Rehab Potential: Good DC OT Time Start Time: 09:20 Stop Time: 08:31 DATE: Jul 19, 2023 Total Time Billed (hr/min): 11 Billed Treatment Time ADL 11 min TEODORO MEJIA OT Jul 19, 2023 08:54
[2023-07-19] MEDS: carvediloL 6.25 MG TABLET PO SCH ×2 (09:00→21:03)
[2023-07-19] MEDS: ASPIRIN enteric coated 81MG TABLET PO SCH (09:00)
[2023-07-19] MEDS: amLODIPine 10 MG TABLET PO SCH (09:00)
[2023-07-19] MEDS: CLOPIDOGREL 75 MG TABLET PO SCH (09:00)
[2023-07-19] MEDS: LACTOBACILLUS ACIDOPHILUS (PROBIOTIC) CAPSULE PO SCH (09:01)
[2023-07-19] MEDS: FLUoxetine 20 MG CAPSULE PO SCH (09:01)
[2023-07-19] MEDS: LOSARTAN 100 MG TABLET PO SCH (09:01)
[2023-07-19] MEDS: ACYCLOVIR 400 MG CAPSULE/TABLET PO SCH ×4 (09:01→21:03)
[2023-07-19] MEDS: PANTOPRAZOLE 40 MG TABLET PO SCH ×2 (09:01→21:03)
[2023-07-19] MEDS: FERROUS SULFATE 325 MG (IRON) TABLET PO SCH (09:01)
[2023-07-19] MEDS: niCARdipine INJECTION 50 MG in NS (IVPB) 250 ML 230 ML IV SCH ×2 (10:45→20:55)
--- NOTE | 2023-07-19 12:56 | Tele-ICU Progress Note ---
Subjective Date Seen by a Provider: Jul 19, 2023 Time Seen by a Provider: 12:56 Subjective/Events-last exam (Tele-ICU Physician , Progress Note ) Service provided via interactive audio and video telecommunications E-CARE system to a patient admitted to ICU bed in [facility]. Patient is seen today due to persistent need of ICU care Available chart/ vitals / labs / Images reviewed Video assessment done using teleICU camera, rest of exam as per RN Discussed with RN Events overnight : Afebrile hemodynamically stable Respiratory - ra I/O = + Drips: cardizem Pressors- no Hospital course: 63 yo emale with colon ca, presents with difficulty speaking at 645pm. Expressive aphasia and bp in 200s. Patient given TPA in ed, and admitted to icu for further workup. A/P Acute ischemic CVA NIH 4 at presentation TPA given in ED MRI - Left parietal lobe region concerning for acute cortical infarct - Plavix and aspirin anticoag when able after 24 hours stop permissive hypertension ANY - multiole contrast for images - decrease hydration today Anemia - no acute bleeding , monitor Thrombocytopenia - monitor, stable Colon ca with liver mets Lines : subclavian [place] , (Central Line Necessity Reviewed) [place]: OG: Nutrition: po Analgesia: Anxiety/ delirium VTE Prophylaxis: scd Stress Ulcer Prophylaxis:na Plans in collaboration with bedside consultants and IM MDs. Discussed with RN to reach out if any questions or concerns Case and care daily discussed on multidisciplinary rounds ( RN, PharmD, Magento Web Developer , Respiratory Therapy, fiber glass worker ) A total of 15 minutes of critical care time was devoted to this patient today, required to treat and/or prevent further deterioration of critical care condition ( as above ) . Sepsis Event Evaluation Height, Weight, BMI Height: 5'1.00" Weight: 119lbs. 9.0oz. 54.606079mm; 21.44 BMI Method:Stated Exam Exam Patient acknowledged, consented, and participated in this virtual visit which was conducted using real time audio/video Vital Signs Date Time Temp Pulse Resp B/P (MAP) Pulse Ox O2 Delivery O2 Flow Rate FiO2 07/19/23 12:00 89 20 171/89 (126) 99 Room Air 07/19/23 11:00 84 19 159/82 (120) 98 Room Air 07/19/23 10:00 84 20 157/81 (112) 98 Room Air 07/19/23 09:00 86 18 132/79 (96) 99 Room Air 07/19/23 08:00 93 20 151/78 (114) 99 Room Air 07/19/23 07:00 87 07/19/23 07:00 96 14 151/78 (102) 98 Room Air 07/19/23 06:00 82 15 134/65 (88) 94 Room Air 07/19/23 05:00 82 19 137/69 (91) 96 Room Air 07/19/23 04:00 80 17 137/72 (93) 95 Room Air 07/19/23 03:19 Room Air 07/19/23 03:00 83 16 128/72 (90) 96 Room Air 07/19/23 02:00 86 19 126/59 (81) 96 Room Air 07/19/23 01:00 94 07/19/23 01:00 90 15 135/61 (85) 96 Room Air 07/19/23 00:00 85 25 139/70 (93) 96 Room Air 07/18/23 23:59 Room Air 07/18/23 23:00 86 22 144/70 (94) 95 Room Air 07/18/23 22:00 84 16 141/67 (91) 97 Room Air 07/18/23 21:00 88 17 136/63 (87) 97 Room Air 07/18/23 20:00 89 24 147/98 (114) 97 Room Air 07/18/23 20:00 Room Air 07/18/23 19:00 36.5 89 153/79 (103) 99 Room Air 07/18/23 19:00 87 07/18/23 18:04 144/75 07/18/23 18:00 96 24 143/78 (99) 99 Room Air 07/18/23 17:00 90 12 152/71 (98) 99 Room Air 07/18/23 16:47 144/75 07/18/23 16:25 97 Room Air 07/18/23 16:05 179/83 07/18/23 16:00 86 19 149/71 (97) 97 Room Air 07/18/23 15:55 181/87 07/18/23 15:44 36.4 07/18/23 15:00 87 12 181/87 (118) 100 Room Air 07/18/23 14:00 85 23 172/87 (115) 97 Room Air 07/18/23 13:00 86 15 166/79 (108) 96 Room Air 07/18/23 13:00 86 I & O 07/19/23 07:00 Intake Total 2700 ml Output Total 675 ml Balance 2025 ml Height & Weight Height: 5'1.00" Weight: 119lbs. 9.0oz. 54.499088ic; 21.44 BMI Method:Stated General Appearance: No Apparent Distress Capillary Refill: Less Than 3 Seconds Gastrointestinal: normal bowel sounds, soft, tenderness (mild generalized ttp she relates to her history of colon ca and surgeries) Results Lab Laboratory Tests 07/18/23 04:14 07/19/23 04:50 Assessment/Plan Assessment/Plan 1 PRADEEP LATIF MD Jul 19, 2023 12:56
--- NOTE | 2023-07-19 14:02 | Progress Note ---
DIEGO MARIA 07/19/23 1402: Subjective Subjective/Events-last exam Patient was resting comfortably in bed this morning. She is just tired and wants to go home so that she can see her dog. She has no other concerns. Denies headache, vision changes, chest pain, soa, abdominal pain, dysuria, constipation, weakness, or loss of sensation. Endorses diarrhea. This is a chronic issue due to her chemotherapy drug. Objective Exam Last Set of Vital Signs Vital Signs Date Time Temp Pulse Resp B/P (MAP) Pulse Ox O2 Delivery O2 Flow Rate FiO2 07/19/23 13:00 85 21 156/71 (113) Room Air 07/19/23 12:00 99 07/18/23 19:00 36.5 07/17/23 04:00 97 Capillary Refill : Less Than 3 Seconds I&O Intake and Output 07/19/23 00:00 Intake Total 3900 ml Output Total 1375 ml Balance 2525 ml Intake Oral 1550 ml IV Total 2350 ml Output Urine Total 1375 ml # Voids 1 # Bowel Movements 1 General: Alert, Oriented X3, Cooperative, No Acute Distress HEENT: Atraumatic Lungs: Clear to Auscultation, Normal Air Movement Heart: Regular Rate, Normal S1, Normal S2, No Murmurs Abdomen: Other (Hypoactive bowel sounds. Generalized abdominal tenderness to palpation. ) Extremities: No Clubbing, No Cyanosis, No Edema, Normal Pulses, No Tenderness/Swelling Skin: No Rashes, No Breakdown, No Significant Lesion Neuro: Normal Speech, Strength at 5/5 X4 Ext, Normal Tone, Sensation Intact, Cranial Nerves 3-12 NL, Reflexes 2+, Other (Left hand intention tremor on finger-nose test) Psych/Mental Status: Mental Status NL, Mood NL Results/Procedures Lab Laboratory Tests 07/19/23 04:50: White Blood Count 6.7, Red Blood Count 2.48L, Hemoglobin 7.7L, Hematocrit 23L, Mean Corpuscular Volume 94, Mean Corpuscular Hemoglobin 31, Mean Corpuscular Hemoglobin Concent 33, Red Cell Distribution Width 17.2H, Platelet Count 90L, Mean Platelet Volume 12.0, Immature Granulocyte % (Auto) 1, Neutrophils (%) (Auto) 60, Lymphocytes (%) (Auto) 22, Monocytes (%) (Auto) 15H, Eosinophils (%) (Auto) 2, Basophils (%) (Auto) 0, Neutrophils # (Auto) 4.0, Lymphocytes # (Auto) 1.5, Monocytes # (Auto) 1.0, Eosinophils # (Auto) 0.2, Basophils # (Auto) 0.0, Immature Granulocyte # (Auto) 0.0, Percent Immature Platelet Fraction 4.2, Sodium Level 136, Potassium Level 3.8, Chloride Level 114H, Carbon Dioxide Level 16L, Anion Gap 6, Blood Urea Nitrogen 16, Creatinine 1.62H, Estimat Glomerular Filtration Rate 35, BUN/Creatinine Ratio 10, Glucose Level 93, Calcium Level 7.6L, Corrected Calcium 8.8, Phosphorus Level 3.1, Magnesium Level 2.5H, Total Bilirubin 0.4, Aspartate Amino Transf (AST/SGOT) 30, Alanine Aminotransferase (ALT/SGPT) 23, Alkaline Phosphatase 107, Total Protein 5.0L, Albumin 2.5L, Thyroid Stimulating Hormone (TSH) 2.15, Free Thyroxine 0.87 Microbiology 07/16/23 MRSA Screen - Final, Complete MRSA not isolated Radiology Chest X-Ray: No acute cardiopulmonary process is detected. Head CT (07/16) 1. Age-related volume loss with multiple low density remote appearing lacunar infarcts within the basal ganglia. 2. No findings of territorial loss of barajas-white differentiation or edema to suggest acute ischemia. 3. No hemorrhage, mass effect or hydrocephalus. 4. No identifiable asymmetric hyperdense blood vessel. CTA Head and Neck: 1. No CT angiographic evidence of intracranial large vessel occlusion. 2. Approximately 50% stenosis at the carotid bifurcations within the neck. There are no findings of dissection. 3. Dural venous sinuses are patent. 4. No findings of aneurysm or vascular malformation. 5. The dural venous sinuses are patent. 6. No evidence of pathologic intracranial enhancement. MRI Brain: 1: There is a small area of abnormal signal involving the cortical region of the left parietal lobe region concerning for acute cortical infarct. There is no intraparenchymal hemorrhage or brain herniation. 2: There is chronic small vessel ischemic disease and leukoaraiosis. Head CT (07/17): 1. Known small region of cortical ischemia within the left parietal lobe is not apparent by CT. There are no findings of new loss of barajas-white differentiation. 2. No evidence of hemorrhagic transformation or findings of acute intracranial hemorrhage. Assessment/Plan Assessment/Plan (1) Acute ischemic stroke Status: Resolved Assessment & Plan: - Patient presented to ED with expressive aphasia concerning for an acute ischemic stroke. ED doctor ordered CT head which showed no evidence of hemorrhagic stroke. [facility] neurology was consulted and the patient was given tenecteplase in the ED. - CTA head and neck showed approximately 50% stenosis at the carotid bifurcations within the neck. There are no findings of dissection. - MRI brain showed a small area of abnormal signal involving the cortical region of the left parietal lobe region concerning for acute cortical infarct. There is no intraparenchymal hemorrhage or brain herniation. There is chronic small vessel ischemic disease and leukoaraiosis. - EKG showing normal sinus rhythm, incomplete right bundle branch block, low voltage. - Patient was cleared for swallowing by occupational therapy - Aspirin 81mg and plavix 75mg started - Continue Rosuvastatin 20mg. Target LDL <55 - Echo: 55-60% EF. Grade 1 diastolic dysfunction. Mild-moderate left ventricular hypertrophy. Dilated left atrium. Trace MR and TR. - Repeat Head CT on 07/17: No evidence of hemorrhagic transformation or findings of acute intracranial hemorrhage. - Order 1ac - Cardiology recommends long-term monitor for the heart (2) Hypertension Status: Chronic Assessment & Plan: - Patients blood pressure was greater that 200 upon admission to ED. She was started on a nicardipine drip at this time. - Patient managed BP at home with amlodipine and losartan. - BP currently being managed with amlodipine 10mg, losartan 100mg, HCTZ 25mg, an d carvedilol 6.25mg PO BID. We are trying to stop Nicardipine drip but patients BP continues to rebound into the 170s. Continue to monitor BP and try to stop Nicardipine drip - Continue following with cardiology for BP recommendations - Goal BP of <130/80 - Order TSH and free T4 Qualifiers: Qualified Codes: I10 - Essential (primary) hypertension (3) Elevated serum creatinine Status: Acute Assessment & Plan: - Patient had Cr level of 2.07 on admission - Cr level of 1.62 up from 1.52 yesterday. Bump could be secondary to IV contrast used for imaging - Patient was recently referred to a flue lining dipper by her oncologist, Dr. Lovell. So her creatinine levels have been elevated. Unsure what her baseline is. - Continuing NS IV fluids - Trend AM CMP (4) Thrombocytopenia Status: Acute Assessment & Plan: - Platelet count upon admission was 128 - Count today was 90 - Could be secondary to malignancy vs chemotherapy vs hemodilution - Continue to monitor (5) Hypokalemia Status: Resolved Assessment & Plan: - Potassium level of upon admission was 2.9. - Potassium was replaced with subsequent potassium level being 3.8 - Hypokalemia most likely secondary to diarrhea caused by chemotherapeutic a gent. Magnesium level of 1 upon admission may be contributing to low potassium levels. - Magnesium replaced. (6) Hypomagnesemia Status: Resolved Assessment & Plan: - Magnesium level of 1 upon admission - Magnesium replaced - Magnesium level was high at 3.4 on 07/17 - Repeat AM magnesium level (7) Metastatic colon cancer to liver Status: Chronic Assessment & Plan: - Patient follows with Dr. Lovell for her cancer - She is taking Avastin as her chemotherapeutic drug (8) Depression Status: Chronic Assessment & Plan: - Continue CNC PROGRAMMER Prozac 60mg - Continue CNC PROGRAMMER hyroxyzine 25mg Qualifiers: Qualified Codes: F32.89 - Other specified depressive episodes (9) Anxiety Status: Chronic Assessment & Plan: - Continue CNC PROGRAMMER Prozac 60mg - Continue CNC PROGRAMMER hyroxyzine 25mg Clinical Quality Measures Stroke: Date of last known well: Jul 16, 2023 Time of last known well: 18:45 RADHA VIGIL MD 07/19/23 1538: Objective Exam General: Alert, No Acute Distress Lungs: Clear to Auscultation, Normal Air Movement Heart: Regular Rate, No Murmurs Extremities: No Edema Neuro: Normal Speech Psych/Mental Status: Mood NL Supervisory-Addendum Brief Supervisory Addendum I personally performed or re-performed the history, physical exam and treatment for the E/M. I discussed the case with the Medical Student, and concur with the Medical Student documentation of history, physical exam and treatment plan unless otherwise noted. DIEGO MARIA Jul 19, 2023 14:02 RADHA VIGIL MD Jul 19, 2023 15:38
[2023-07-19] MEDS ORDERED: NIFEdipine Extended Release 30 MG TABLET PO ONE (16:30)
[2023-07-19] MEDS ORDERED: NIFEdipine Extended Release 30 MG TABLET PO SCH (21:00)
[2023-07-19] MEDS ORDERED: ROSUVASTATIN 20 MG TABLET PO SCH (21:00)
[2023-07-19] MEDS: hydrOXYzine 25 MG CAPSULE PO SCH (21:03)
[2023-07-20 04:46] LABS: HEMATOCRIT 23 % (35-52)
[2023-07-20 04:47] LABS: BASOPHILS % (AUTO) 0 % (0-10); EOSINOPHILS # (AUTO) 0.1 10^3/uL (0.0-0.3); EOSINOPHILS % (AUTO) 2 % (0-10); HEMOGLOBIN 7.4 g/dL (11.5-16.0); LYMPHOCYTES # (AUTO) 1.7 10^3/uL (1.0-4.0); LYMPHOCYTES % (AUTO) 26 % (12-44); MEAN CORPUSCULAR HEMOGLOBIN 30 pg (25-34); MEAN CORPUSCULAR HGB CONC 32 g/dL (32-36); MEAN CORPUSCULAR VOLUME 94 fL (80-99); MEAN PLATELET VOLUME 11.3 fL (9.0-12.2); MONOCYTES # (AUTO) 1.2 10^3/uL (0.0-1.0); MONOCYTES % (AUTO) 18 % (0-12); NEUTROPHILS # (AUTO) 3.5 10^3/uL (1.8-7.8); NEUTROPHILS % (AUTO) 53 % (42-75); PLATELET COUNT 88 10^3/uL (130-400); WHITE BLOOD COUNT 6.6 10^3/uL (4.3-11.0)
[2023-07-20 04:54] LABS: ALBUMIN 2.4 GM/DL (3.2-4.5); POTASSIUM 4.3 MMOL/L (3.6-5.0)
[2023-07-20 04:56] LABS: CALCIUM 8.2 MG/DL (8.5-10.1)
[2023-07-20 04:57] LABS: TOTAL PROTEIN 5.1 GM/DL (6.4-8.2)
[2023-07-20 04:59] LABS: BILIRUBIN,TOTAL 0.5 MG/DL (0.1-1.0)
[2023-07-20 05:00] LABS: CREATININE SERUM 1.6 MG/DL (0.60-1.30)
[2023-07-20 05:04] LABS: MAGNESIUM 2.1 MG/DL (1.6-2.4)
[2023-07-20] MEDS: MAGNESIUM 1 GM/100 ML IVPB 100 ML IV SCH (05:10)
[2023-07-20] MEDS: POTASSIUM CL 10MEQ/50ML IVPB 50 ML IV SCH (05:10)
[2023-07-20] MEDS: POTASSIUM CHLORIDE 20 MEQ TABLET PO SCH (05:11)
[2023-07-20] MEDS: THERAPEUTIC MULTIVITAMIN W/MINERALS TABLET PO SCH (06:04)
[2023-07-20] MEDS: niCARdipine INJECTION 50 MG in NS (IVPB) 250 ML 230 ML IV SCH (06:10)
[2023-07-20] MEDS: LOPERAMIDE 2 MG CAPSULE PO PRN (07:35)
--- NOTE | 2023-07-20 07:36 | History & Physical-Hospitalist ---
History of Present Illness Date Seen 07/20/23 Attending Physician Jose Villeda MD PCP Admitting Physician: Kassidy Ying MD Attending Physician: Charles Verdin MD Referring Physician Date of Admission Jul 16, 2023 at 22:27 Home Medications & Allergies Home Medications Reviewed patient Home Medication Reconciliation performed by pharmacy medication reconciliations lay out technician and/or nursing. Patients Allergies have been reviewed. Allergies Allergies Coded Allergies Penicillins (Verified Allergy, Mild, YEAST INFECTION, 03/11/20) doxycycline (Verified Allergy, Unknown, 03/11/20) levofloxacin (Verified Allergy, Unknown, 03/11/20) lovastatin (Verified Allergy, Unknown, 03/11/20) Past Lcfdtkd-Xklvjz-Dpgnea Hx Patient Social History Marrital Status: Tobacco Use?: No Smoking Status: Former Smoker (Approximately 80 pack year history) Use of E-Cig and/or Vaping dev: No Substance use?: No Alcohol Use?: No Pt feels they are or have been: No Immunizations Up To Date Date of Influenza Vaccine: Sep 10, 2021 First/Initial COVID19 Vaccinat: 2020 Second COVID19 Vaccination Kaveh: 2020 Tetanus Booster (TDap): Unknown Date of Pneumonia Vaccine: Aug 10, 2020 Seasonal Allergies Seasonal Allergies: Yes Current Status status: No status: No Advance Directives: No Communicates: Verbally Primary Language: Spanish Preferred Spoken Language: Spanish Is interpretation needed?: No Sensory deficits: Vision impairment Implanted or Applied Medical D: Port-a-cath Past Medical History Surgeries: Appendectomy, Section, Gallbladder, Hysterectomy Pulmonary Embolism Currently Using CPAP: No Currently Using BIPAP: No Deep Vein Thrombosis, Hypertension, Palpitations Headaches /Migraines 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: Hysterectomy Sexually Transmitted Disease: No HIV/AIDS: No Chronic Constipation, Chronic Diarrhea, Polyps Chronic Back Pain Loss of Vision: Bilateral Hearing Impairment: Denies Liver, Colon Did You Recieve Any Treatments: Yes What Type of Treatment Did You: Surgical Intervention Anxiety, Depression Blood Disorders: No Adverse Reaction/Blood Tranf: No (HAS HAD BLOOD WITH NO REACTION) PMHx: Depression Anxiety HTN, HLD Fibromyalgia Pulmonary embolism at age 36 Metastatic colon cancer SurgHx: Cholecystectomy Colectomy Partial hysterectomy Appendectomy Family Medical History Colon cancer 19 MOTHER Diabetes mellitus 19 MOTHER Physical Exam Physical Exam Vital Signs Vital Signs - First Documented 07/16/23 07/16/23 19:20 21:00 Temp 36.7 Pulse 87 Resp 16 B/P (MAP) 190/100 (130) Pulse Ox 100 O2 Delivery Room Air FiO2 97 Capillary Refill : Less Than 3 Seconds Height, Weight, BMI Height: 5'1.00" Weight: 119lbs. 9.0oz. 54.745844ex; 21.64 BMI Method:Stated Results Results/Procedures Labs Laboratory Tests 07/19/23 04:50 07/20/23 04:28 Patient resulted labs reviewed. Clinical Quality Measures Stroke: Date of last known well: Jul 16, 2023 Time of last known well: 18:45 DAMIAN BOYD MD, RESIDENT Jul 20, 2023 07:36
--- NOTE | 2023-07-20 07:37 | Progress Note ---
Subjective HPI/CC On Admission Date Seen by Provider: Jul 20, 2023 Time Seen by Provider: 08:30 Subjective/Events-last exam Patient feels well today. Notes that her expressive aphasia and ataxia symptoms from admission have resolved. Patient would like to go home today. Has no other concerns. Review of Systems General: No Chills, No Fatigue HEENT: No Head Aches Pulmonary: No Dyspnea, No Cough Cardiovascular: No: Chest Pain, Palpitations Gastrointestinal: No: Nausea, Vomiting, Abdominal Pain, Diarrhea, Constipation Genitourinary: No Dysuria Neurological: No: Weakness, Change in speech Objective Exam Vital Signs Vital Signs Date Time Temp Pulse Resp B/P (MAP) Pulse Ox O2 Delivery O2 Flow Rate FiO2 07/20/23 12:00 86 14 145/73 (109) 99 Room Air 07/20/23 11:43 36.3 07/17/23 04:00 97 Capillary Refill : Less Than 3 Seconds General Appearance: No Apparent Distress HEENT: PERRL/EOMI Neck: Full Range of Motion Respiratory: Chest Non Tender, Lungs Clear, Normal Breath Sounds, No Accessory Muscle Use, No Respiratory Distress Cardiovascular: Regular Rate, Rhythm, No Edema, No Murmur Gastrointestinal: Normal Bowel Sounds, Non Tender, Soft Extremity: Normal Range of Motion Neurologic/Psychiatric: Alert, Oriented x3, partner manager II-XII Norm as Tested Skin: Warm/Dry Results/Procedures Lab Laboratory Tests 07/20/23 04:28 Patient resulted labs reviewed. Imaging: Reviewed Imaging Report Assessment/Plan Assessment and Plan Assess & Plan/Chief Complaint Mel Forrester is a 63 yo F with a PMHx of colon cancer with mets to the liver presenting with stroke. Diagnosis/Problems Diagnosis/Problems (1) Acute ischemic stroke Status: Resolved Assessment & Plan: Patient presented with expression aphasia concerning for stroke. S/p tenecteplase in the ED. MRI was notable for left parietal lobe acute infarct. Echo notable for EF 55-60%, otherwise unremarkable. Stroke symptoms have since resolved. -Continue aspirin and plavix -Continue Crestor -Patient will need event monitor/loop recorder in the outpatient per cardiology recommendations. Discussed with Dr. Verdin, unable to get this set up on the weekend thus will need to be set up in the outpatient. -Patient otherwise stable for dc home. Resolution Date/Time: 07/19/23 @ 14:04 (2) Hypertension Status: Chronic Assessment & Plan: Patient presented with initial high blood pressures requiring nicardipine drip. Drip was discontinued yesterday and medications have been adjusted to keep BP well controlled. Avoiding strict blood pressure control in the setting of recent acute stroke. Orthostatic vital signs negative today and blood pressures otherwise 140s-160s. -Patient will be discharged on candesartan-HCTZ 32-25mg daily and ASSEMBLY STOCK SUPERVISOR amlodipine 10mg daily Qualifiers: Qualified Codes: I10 - Essential (primary) hypertension (3) Elevated serum creatinine Status: Acute Assessment & Plan: Patient had Cr level of 2.07 on admission. Downtrending today to 1.6. 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 -Continue workup in the outpatient. (4) Metastatic colon cancer to liver Status: Chronic Assessment & Plan: - Patient follows with Dr. Lovell for her cancer - She is taking Avastin as her chemotherapeutic drug - Continue outpatient follow up (5) Depression Status: Chronic Assessment & Plan: - Continue ASSEMBLY STOCK SUPERVISOR Prozac 60mg - Continue ASSEMBLY STOCK SUPERVISOR hyroxyzine 25mg Qualifiers: Qualified Codes: F32.89 - Other specified depressive episodes (6) Anxiety Status: Chronic Assessment & Plan: See above. Clinical Quality Measures Stroke: Date of last known well: Jul 16, 2023 Time of last known well: 18:45 DAMIAN BOYD MD, RESIDENT Jul 20, 2023 07:37
[2023-07-20] MEDS ORDERED: amLODIPine 10 MG TABLET PO ONE (08:45)
[2023-07-20] MEDS ORDERED: amLODIPine 10 MG TABLET ONE (08:48)
[2023-07-20] MEDS: FLUoxetine 20 MG CAPSULE PO SCH (08:55)
[2023-07-20] MEDS: LOSARTAN 100 MG TABLET PO SCH (08:55)
[2023-07-20] MEDS: FERROUS SULFATE 325 MG (IRON) TABLET PO SCH (08:57)
[2023-07-20] MEDS: CLOPIDOGREL 75 MG TABLET PO SCH (08:57)
[2023-07-20] MEDS: LACTOBACILLUS ACIDOPHILUS (PROBIOTIC) CAPSULE PO SCH (08:57)
[2023-07-20] MEDS: ACYCLOVIR 400 MG CAPSULE/TABLET PO SCH (08:57)
[2023-07-20] MEDS: PANTOPRAZOLE 40 MG TABLET PO SCH (08:57)
[2023-07-20] MEDS: ASPIRIN enteric coated 81MG TABLET PO SCH (08:57)
--- NOTE | 2023-07-20 11:19 | Cardiology Progress Note ---
Subjective Date Seen by Provider: Jul 20, 2023 Time Seen by Provider: 10:15 Subjective/Events-last exam No acute events overnight. Patient reports she is anxious to get out. Blood pressure still running 140s to 160s systolic. Some of the antihypertensive medications I initiated yesterday have been held. Objective-Cardiology Exam Last Set of Vital Signs Vital Signs 07/20/23 11:00 Pulse 80 Resp 10 B/P (MAP) 149/76 (116) Pulse Ox 98 O2 Delivery Room Air I&O Intake and Output 07/20/23 00:00 Intake Total 1225 ml Output Total 1000 ml Balance 225 ml Intake Oral 1125 ml IV Total 100 ml Output Urine Total 1000 ml # Voids 1 General: Alert, No Acute Distress HEENT: Atraumatic Lungs: Clear to Auscultation, Normal Air Movement Heart: Regular Rate, No Murmurs Abdomen: Other (Hypoactive bowel sounds. Generalized abdominal tenderness to palpation. ) Extremities: No Edema Skin: No Rashes, No Breakdown, No Significant Lesion Neuro: Normal Speech Psych/Mental Status: Mood NL Other physical findings Gen: NAD, resting comfortably Neck: No bruits, no JVD Lungs: CTA B; no w-r-r CV: nl s1/s2; no murmurs gallops or rubs, regular rate and rhythm Abd: + BS, soft NT,ND, no hepatosplenomegaly. Ext: 2+ radial and DP pulses; no c-c-e, wwp Neuro: Moving all 4 extremities. Good strength Labs Results Lab Laboratory Tests 07/20/23 04:28 A/P-Cardiology Assessment/Plan 63-year-old female with a history of stage IV colon cancer, inoperable, undergoing chemo followed by Dr. Arriola, anemia with recent transfusion of 1 unit last Saturday, hemoglobin 7.2, hypertension, recent CVA, depression/anxiety, GERD who presents for evaluation of aphasia and difficulty moving bilateral arms. ##CVA: Status post tenecteplase. Currently on Plavix and aspirin and crestor. Recommend targeting blood pressure less than 130/80. Fasting lipid panel demonstrates LDL of 105, HDL of 41, triglycerides of 88, total cholesterol of 155. Would target LDL less than 55. A1c of 4.8. TSH 2.2, free T40.9, within normal limits. Unclear etiology for CVA. No obvious shunt noted on TTE. Left atrium is mildly enlarged. I do believe patient will benefit from longer term monitoring. We will consider either loop recorder implantation on this admission or event monitor for 4 weeks immediately postdischarge. Personal review of EKG demonstrates normal sinus rhythm, incomplete right bundle branch block, low voltage. ##Hypertension: Target blood pressures less than 130/80 at this time. Defer further blood pressure management to hospitalist team.. . ##Disposition: Please ensure patient gets event monitor versus loop recorder prior to discharge. Optimize blood pressures as noted above. We will sign off for now. Please call back with additional questions. RADHA SHAVER MD Jul 20, 2023 11:18 am
[2023-07-20] MEDS ORDERED: ROSU20TA73 PO (11:41)
[2023-07-20] MEDS ORDERED: CLOP75TA28 PO (11:41)
[2023-07-20] MEDS ORDERED: CAND1TAB19 PO (11:41)
--- NOTE | 2023-07-20 11:42 | Discharge Summary ---
Discharge Summary Hospital Course Was the Problem List Reviewed?: Yes Hospital Course Date of Admission: Jul 16, 2023 at 22:27 Admission Diagnosis : Family Physician/Provider: Jose Villeda MD Date of Discharge: 07/20/23 Discharge Diagnosis: [Acute ischemic stroke] Hospital Course: [Patient initially presented with expressive aphasia with initial CT scan negative. After consultation with neurology, patient was given a dose of tenectaplase in the ED prior to admission for further stroke workup. MRI was notable for acute ischemic stroke in area of left parietal lobe. She was thus managed on aspirin, plavix. Also noted to have elevated blood pressures intially requiring nicardipine drip. Oral BP medications were adjusted and eventually continued to keep blood pressure well control without nicardipine. Echo completed by cardiology to look at causes of stroke was unremarkable aside from EF of 55-60%. Patient's aphasia eventually resolved and was ultimately discharged home.] Labs and Pending Lab Test: Laboratory Tests 07/20/23 04:28: White Blood Count 6.6, Red Blood Count 2.49L, Hemoglobin 7.4L, Hematocrit 23L, Mean Corpuscular Volume 94, Mean Corpuscular Hemoglobin 30, Mean Corpuscular Hemoglobin Concent 32, Red Cell Distribution Width 17.2H, Platelet Count 88L, Mean Platelet Volume 11.3, Immature Granulocyte % (Auto) 0, Neutrophils (%) (Auto) 53, Lymphocytes (%) (Auto) 26, Monocytes (%) (Auto) 18H, Eosinophils (%) (Auto) 2, Basophils (%) (Auto) 0, Neutrophils # (Auto) 3.5, Lymphocytes # (Auto) 1.7, Monocytes # (Auto) 1.2H, Eosinophils # (Auto) 0.1, Basophils # (Auto) 0.0, Immature Granulocyte # (Auto) 0.0, Percent Immature Platelet Fraction 5.2, Sodium Level 136, Potassium Level 4.3, Chloride Level 114H, Carbon Dioxide Level 16L, Anion Gap 6, Blood Urea Nitrogen 21H, Creatinine 1.60H, Estimat Glomerular Filtration Rate 36, BUN/Creatinine Ratio 13, Glucose Level 78, Calcium Level 8.2L, Corrected Calcium 9.5, Phosphorus Level 4.0, Magnesium Level 2.1, Total Bilirubin 0.5, Aspartate Amino Transf (AST/SGOT) 32, Alanine Aminotransferase (ALT/SGPT) 22, Alkaline Phosphatase 113, Total Protein 5.1L, Albumin 2.4L Microbiology 07/16/23 MRSA Screen - Final, Complete MRSA not isolated Home Meds Active Candesartan-Hctz 32-25 mg Tab (Candesartan/Hydrochlorothiazid) 32 Mg-25 Mg Tablet 1 Each PO DAILY 30 Days Rosuvastatin Calcium 20 Mg Tablet 20 Mg PO HS 30 Days Clopidogrel (Clopidogrel Bisulfate) 75 Mg Tablet 75 Mg PO DAILY 30 Days Reported Alive Premium Women's 50 Plus (Mv-Mn/Folic/Lutein/Herbal 293) 80 Mcg-166.7 Mcg- 66.7 Mg Tab.chew 2 Each PO DAILY Iron (Ferrous Sulfate) 325 Mg (65 Mg Iron) Tablet 325 Mg PO DAILY Aspirin EC (Aspirin) 81 Mg Tablet.dr 81 Mg PO MO,WE,FR Imodium A-D (Loperamide HCl) 2 Mg Capsule 2-4 Mg PO UD PRN Losartan Potassium 100 Mg Tablet 100 Mg PO DAILY Amlodipine Besylate 10 Mg Tablet 10 Mg PO DAILY Fluoxetine HCl 40 Mg Capsule 40 Mg PO DAILY TAKES 20MG +40NG TOGETHER TO EQUAL 60NG Fluoxetine HCl 20 Mg Capsule 20 Mg PO DAILY TAKES 20MG +40NG TOGETHER TO EQUAL 60NG Pantoprazole Sodium 40 Mg Tablet.dr 40 Mg PO BID Acyclovir 400 Mg Tablet 400 Mg PO QID Hydroxyzine HCl 25 Mg Tablet 25 Mg PO HS Tramadol HCl 50 Mg Tablet 50 Mg PO DAILY Ondansetron HCl 8 Mg Tablet 8 Mg PO Q8H PRN Probiotic (L.acidoph & Paracasei,B.lactis) 1 Each Capsule 1 Each PO DAILY Assessment/Pt Instructions Please see electronic discharge instructions given to patient. Discharge Instructions Discharge Diet: No Restrictions Activity as Tolerated: Yes Discharge Physical Examination Vital Signs Vital Signs Date Time Temp Pulse Resp B/P (MAP) Pulse Ox O2 Delivery O2 Flow Rate FiO2 07/20/23 11:00 80 10 149/76 (116) 98 Room Air 07/19/23 19:00 36.6 07/17/23 04:00 97 General Appearance: No Apparent Distress HEENT: PERRL/EOMI Respiratory: Chest Non Tender, Lungs Clear, Normal Breath Sounds, No Accessory Muscle Use, No Respiratory Distress Cardiovascular: Regular Rate, Rhythm, No Edema, No Murmur Gastrointestinal: Normal Bowel Sounds, Non Tender, Soft Extremity: Normal Range of Motion Skin: Warm/Dry Neurologic/Psychiatric: Alert, Oriented x3, No Motor/Sensory Deficits, marketing community liaison II- XII Norm as Tested Allergies: Coded Allergies: Penicillins (Verified Allergy, Mild, YEAST INFECTION, 03/11/20) doxycycline (Verified Allergy, Unknown, 03/11/20) levofloxacin (Verified Allergy, Unknown, 03/11/20) lovastatin (Verified Allergy, Unknown, 03/11/20) Copy Copies To 1: ROSEMARY LOVELL Copies To 2: JOSE VILLEDA MD Discharge Summary Date of Admission Jul 16, 2023 at 22:27 Date of Discharge 07/20/2023 Discharge Date: Jul 20, 2023 Discharge Diagnosis (1) Acute ischemic stroke Status: Resolved Assessment & Plan: Patient presented with expression aphasia concerning for stroke. S/p tenecteplase in the ED. MRI was notable for left parietal lobe acute infarct. Echo notable for EF 55-60%, otherwise unremarkable. Stroke symptoms have since resolved. -Continue aspirin and plavix -Continue Crestor -Patient will need event monitor/loop recorder in the outpatient per cardiology recommendations. Discussed with Dr. Verdin, unable to get this set up on the weekend thus will need to be set up in the outpatient. -Patient otherwise stable for dc home. (2) Hypertension Status: Chronic Assessment & Plan: Patient presented with initial high blood pressures requiring nicardipine drip. Drip was discontinued yesterday and medications have been adjusted to keep BP well controlled. Avoiding strict blood pressure control in the setting of recent acute stroke. Orthostatic vital signs negative today and blood pressures otherwise 140s-160s. -Patient will be discharged on candesartan-HCTZ 32-25mg daily and SENIOR IT PROJECT MANAGER amlodipine 10mg daily Qualifiers: Qualified Codes: I10 - Essential (primary) hypertension (3) Elevated serum creatinine Status: Acute Assessment & Plan: Patient had Cr level of 2.07 on admission. Downtrending today to 1.6. Does appear to be noted in the outpatient as patient has been referred to sys dir by her oncologist. -Continue workup in the outpatient. (4) Metastatic colon cancer to liver Status: Chronic Assessment & Plan: - Patient follows with Dr. Lovell for her cancer - She is taking Avastin as her chemotherapeutic drug - Continue outpatient follow up (5) Depression Status: Chronic Assessment & Plan: - Continue SENIOR IT PROJECT MANAGER Prozac 60mg - Continue SENIOR IT PROJECT MANAGER hyroxyzine 25mg. Qualifiers: Qualified Codes: F32.89 - Other specified depressive episodes (6) Anxiety Status: Chronic Assessment & Plan: See above Clinical Quality Measures Stroke: Date of last known well: Jul 16, 2023 Time of last known well: 18:45 DAMIAN BOYD MD, RESIDENT Jul 20, 2023 11:42
[2023-07-20 12:50] VITALS: BP 144/70
== END 2023-07-20 12:50 | disposition home or self-care (01) | DRG 62 ==
LOC: EDUNIT# 19:15 → ER FS 19:17 → ICU 22:27
PROVIDERS: ADMIT Family Medicine; ATTEND Internal Medicine
DX: I63.9 Cerebral infarction, unspecified (principal); C18.9 Malignant neoplasm of colon, unspecified; C78.7 Secondary malignant neoplasm of liver and intrahepatic bile duct; N17.9 Acute kidney failure, unspecified; R47.01 Aphasia; I10 Essential (primary) hypertension; R29.704 NIHSS score 4; E87.6 Hypokalemia; Z92.82 Status post administration of tPA (rtPA) in a different facility within the last 24 hours prior to admission to current facility; Z86.711 Personal history of pulmonary embolism; Z86.718 Personal history of other venous thrombosis and embolism; D64.9 Anemia, unspecified; D69.6 Thrombocytopenia, unspecified; E83.42 Hypomagnesemia; K21.9 Gastro-esophageal reflux disease without esophagitis; F32.A Depression, unspecified; F41.9 Anxiety disorder, unspecified; H54.3 Unqualified visual loss, both eyes; Z87.891 Personal history of nicotine dependence; I73.00 Raynaud's syndrome without gangrene; Z88.1 Allergy status to other antibiotic agents; Z88.0 Allergy status to penicillin; Z91.09 Other allergy status, other than to drugs and biological substances; Z79.82 Long term (current) use of aspirin; Z79.899 Other long term (current) drug therapy
CPT/HCPCS: 36415; 51702; 70450; 70496; 70498; 70551; 71045; 80053; 80061; 83036; 83735; 84100; 84439; 84443; 84484; 85025; 85027; 85379; 85610; 85730; 87081; 92977; 93005; 93041; 93306; Q9967

== ENCOUNTER → 2023-09-17 | Outpatient (CLI) | payer OTHER ==
[~2023-09-17] MED LIST changes: +ACYC400T21 PO; +AMLO-251 PO; +ASPI-1238 PO; +CAND1TAB19 PO; +CLOP75TA28 PO; +FERR-84 PO; +FLUO20CA48 PO; +FLUO40CA PO; +HYDR-700 PO; +LOPE-175 PO; +LOSA100T58 PO; +MV-M-6 PO; +ONDA-106 PO; +PANT40TA52 PO; +ROSU20TA73 PO; +TRAM50TA3 PO
--- NOTE | 2023-09-17 17:15 | Diagnostic Imaging Report ---
PROCEDURE: US Renal Bilateral. TECHNIQUE: Multiple real-time grayscale images were obtained over the kidneys in various projections bilaterally. INDICATION: Renal failure Right kidney measures 9.3 x 4.2 x 3.4 cm. Left kidney measures 9.4 x 4.0 x 4.1 cm. The kidneys have thinning of the cortex with increased cortical echogenicity. There is no solid mass, calculus or hydronephrosis. Urinary bladder had 76 mL volume prevoid and 0 postvoid. Both ureteral jets are seen. IMPRESSION: Increased renal cortical echogenicity suggesting medical renal disease. Dictated by: Dictated on workstation # [id number]
== END ==
LOC: RAD 14:37
PROVIDERS: ATTEND Internal Medicine Nephrology
DX: N18.4 Chronic kidney disease, stage 4 (severe) (principal)
CPT/HCPCS: 76770